=== PATIENT | female | born 2005 | race Caucasian/White ===

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

== ENCOUNTER 2023-02-03 17:37 | Emergency (ER) | payer BC, MEDICAID, SELFPAY ==
[2023-02-03 17:47] VITALS: BP 122/80; PULSE 89; RESP 15; TEMP 36.7; O2SAT 100
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
[2023-02-03 19:49] VITALS: BP 101/74; PULSE 77; RESP 18; O2SAT 94
[2023-02-03 19:54] LABS: Add Urine Microscopic? NO; Charge for UA Resulting for Rev
[2023-02-03 19:55] LABS: Basophils % 0.6 %; Eosinophils # 0.2 10^3/uL (0.0-0.8); Eosinophils % 2.6 %; Lymphocytes # 1.9 10^3/uL (1.5-6.5); Lymphocytes % 27.6 %; Mean Corpuscular HGB Conc 30.2 g/dL (30-55); Mean Corpuscular Hemoglobin 24.7 pg (27-33); Mean Corpuscular Volume 81.7 fl (85-98); Mean Platelet Volume 10.3 fL (7.4-10.4); Monocytes # 0.4 10^3/uL (0.2-0.9); Neutrophils # 4.42 10^3/uL (1.8-8.0); Neutrophils % 62.8 %; Nucleated Red Blood Cells % 0 %; Platelet Count 290 10^3/cmm (157-399); Red Blood Count 5.14 10^6/uL (3.85-5.65); Red Cell Distribution Width 15.4 % (12.1-15.1); White Blood Count 7.03 10^3/uL (4.5-13.0)
[2023-02-03 19:56] LABS: Bilirubin Urine Neg (Negative); Blood Urine Neg (Negative); Glucose Urine UA Norm (Normal); Ketones Urine Negative (Negative); Leukocyte Esterase Urine Negative (Negative); Nitrate Urine Negative (Negative); Protein Urine Neg (Negative); Specific Gravity, Urine 1.005 (1.005-1.030); Urine Appearance Clear (CLEAR); Urine Color Colorless (Yellow); Urobilinogen Urine Norm (Negative); pH Urine 6 (5-7)
[2023-02-03 20:24] LABS: Alanine Aminotransferase 17 U/L (0-33); Alkaline Phosphatase 78 U/L (35-105); Anion Gap 13.9 (5-19); Aspartate Amino Transferase 20 U/L (0-32); Blood Urea Nitrogen 7 mg/dL (6-20); Calcium 9.1 mg/dL (8.5-10.5); Carbon Dioxide 25 mmol/L (22-29); Chloride 103 mmol/L (98-107); Globulin 2.9 g/dL (1.3-4.6); Glomerular Filtration Rate 128.8 mL/min (90-130); Glucose 90 mg/dL (65-115); Osmolality Calculated 284 mOsm/kg (285-295); Potassium 3.9 mmol/L (3.5-5.1); Sodium 138 mmol/L (136-145); Total Bilirubin 0.3 mg/dL (0.15-1.2); Total Protein 7.9 g/dL (6.6-8.7)
[2023-02-03 21:25] VITALS: BP 103/79; PULSE 80; RESP 16; O2SAT 95
[2023-02-05 16:14] LABS: Chlamydia Trachomatis RNA TMA NOT DETECTED (NOT DETECTED); Neisseria Gonorrhoeae RNA, TMA NOT DETECTED (NOT DETECTED)
== END 2023-02-03 21:32 | disposition home or self-care (01) ==
PROVIDERS: Emergency Provider Nurse Practitioner Family; PCP Family Medicine
DX: Z04.1 Encounter for examination and observation following transport accident (principal); R10.32 Left lower quadrant pain; S39.011A Strain of muscle, fascia and tendon of abdomen, initial encounter; V89.2XXA Person injured in unspecified motor-vehicle accident, traffic, initial encounter
CPT/HCPCS: 36415; 80053; 81003; 84702; 85025; 86850; 86900; 87491; 87591; 99283

== ENCOUNTER 2023-07-23 20:44 | Outpatient (CLI) | payer BC, MEDICAID, SELFPAY ==
[2023-07-23 21:06] VITALS: BP 106/62; PULSE 93
[2023-07-23 21:20] VITALS: BMI 19.5
[2023-07-23 21:22] VITALS: BP 102/62; PULSE 93
[2023-07-23 21:37] VITALS: BP 114/73; PULSE 89
[2023-07-23 21:41] LABS: Bacteria Urine 1+ /hpf; Bilirubin Urine 1+ (Negative); Blood Urine Neg (Negative); Glucose Urine UA Norm (Normal); Ketones Urine 1+ (Negative); Leukocyte Esterase Urine Trace (Negative); Mucus Urine 3+ /hpf; Nitrate Urine Negative (Negative); Protein Urine 1+ (Negative); RBC Urine 0-4 /hpf (0-2); Squamous Epithelial Cell Urine 15-25 /hpf (0-5); Urine Appearance Hazy (CLEAR); Urine Color Yellow (Yellow); Urobilinogen Urine 4 mg/dL (Negative); WBC Urine 0-4 /hpf (0-5); pH Urine 5 (5-7)
[2023-07-23 21:52] VITALS: BP 112/72; PULSE 99
[2023-07-23 22:01] VITALS: BP 112/72; PULSE 99
== END 2023-07-23 22:10 | disposition home or self-care (01) ==
LOC: OPOB 20:45 → OBGYN 20:46
PROVIDERS: PCP Family Medicine; Visit Provider Family Medicine
DX: O26.899 Other specified pregnancy related conditions, unspecified trimester (principal); Z3A.00 Weeks of gestation of pregnancy not specified; R19.7 Diarrhea, unspecified; R10.9 Unspecified abdominal pain; R53.1 Weakness
CPT/HCPCS: 81001; 99211

== ENCOUNTER 2023-08-04 08:37 | Oncology outpatient (recurring) (ONCR) | payer BC, MEDICAID, SELFPAY ==
[2023-08-04 16:17] VITALS: BP 114/64; PULSE 100; RESP 18; TEMP 37.2; O2SAT 98
[2023-08-04 16:19] VITALS: BP 114/68; PULSE 101; RESP 18; TEMP 37.2; O2SAT 98
[2023-08-04 16:27] VITALS: BP 114/68; PULSE 101; RESP 18; TEMP 37.2; O2SAT 98
== END 2023-08-14 23:59 | disposition home or self-care (01) ==
LOC: ONCMED 08:38
PROVIDERS: PCP Family Medicine; Visit Provider Family Medicine
DX: O26.893 Other specified pregnancy related conditions, third trimester (principal); Z67.91 Unspecified blood type, Rh negative; Z23 Encounter for immunization
CPT/HCPCS: 36415; 86850; 86900; 90384

== ENCOUNTER 2023-08-18 18:50 | Outpatient (CLI) | payer BC, MEDICAID, SELFPAY ==
[2023-08-18 19:07] VITALS: BP 116/73; PULSE 104
[2023-08-18 19:14] VITALS: BMI 20.9
[2023-08-18 19:22] VITALS: BP 116/70; PULSE 101
[2023-08-18 19:25] VITALS: TEMP 36.6
[2023-08-18 19:28] LABS: Glucose Point of Care 218 mg/dL (70-110)
[2023-08-18 19:41] LABS: Bilirubin Urine Neg (Negative); Blood Urine Neg (Negative); Glucose Urine UA 4+ (Normal); Ketones Urine Negative (Negative); Leukocyte Esterase Urine Negative (Negative); Nitrate Urine Negative (Negative); Protein Urine Neg (Negative); Urine Appearance Clear (CLEAR); Urine Color Yellow (Yellow); Urobilinogen Urine Norm (Negative); pH Urine 6 (5-7)
[2023-08-18 19:52] VITALS: BP 114/71; PULSE 89
[2023-08-18 20:00] LABS: RBC Urine 0-4 /hpf (0-2); Squamous Epithelial Cell Urine 0-4 /hpf (0-5)
[2023-08-18 20:01] LABS: Add Urine Culture? No
[2023-08-18 20:09] VITALS: BP 114/79; PULSE 89
== END 2023-08-18 20:19 | disposition home or self-care (01) ==
LOC: OPOB 18:55 → OBGYN 18:55
PROVIDERS: PCP Family Medicine; Visit Provider Family Medicine
DX: O26.899 Other specified pregnancy related conditions, unspecified trimester (principal); Z3A.00 Weeks of gestation of pregnancy not specified
CPT/HCPCS: 36416; 59025; 81001; 82962; 99211

== ENCOUNTER 2023-08-20 12:06 | Outpatient (CLI) | payer BC, MEDICAID, SELFPAY ==
[2023-08-20 12:05] VITALS: BMI 20.8
[2023-08-20 12:27] VITALS: BP 118/72; PULSE 103
[2023-08-20 12:47] VITALS: BP 115/72; PULSE 115
[2023-08-20 13:29] LABS: Nitrazine Paper, PH Negative
== END 2023-08-20 13:00 | disposition home or self-care (01) ==
LOC: OPOB 12:06 → OBGYN 12:07
PROVIDERS: PCP Family Medicine; Visit Provider Family Medicine
DX: O26.899 Other specified pregnancy related conditions, unspecified trimester (principal); Z3A.00 Weeks of gestation of pregnancy not specified; N89.8 Other specified noninflammatory disorders of vagina
CPT/HCPCS: 59025; 83986; 99211

== ENCOUNTER 2023-08-23 12:11 | Outpatient (CLI) | payer BC, MEDICAID, SELFPAY ==
[2023-08-23 12:25] VITALS: BP 108/67; PULSE 88
[2023-08-23 12:27] VITALS: BMI 20.6
[2023-08-23 12:46] VITALS: BP 112/63; PULSE 83
[2023-08-23 13:05] VITALS: BP 113/73; PULSE 77
[2023-08-23 13:25] VITALS: BP 113/73; PULSE 77
== END 2023-08-23 13:25 | disposition home or self-care (01) ==
LOC: OPOB 12:19 → OBGYN 12:20
PROVIDERS: PCP Family Medicine; Visit Provider Family Medicine
DX: O24.419 Gestational diabetes mellitus in pregnancy, unspecified control (principal); O99.019 Anemia complicating pregnancy, unspecified trimester; Z3A.00 Weeks of gestation of pregnancy not specified
CPT/HCPCS: 59025; 99211

== ENCOUNTER 2023-08-29 12:16 | Outpatient (CLI) | payer BC, MEDICAID, SELFPAY ==
[2023-08-29 12:25] VITALS: BP 109/66; PULSE 71; TEMP 35.7
[2023-08-29 12:26] VITALS: RESP 15
--- NOTE | 2023-08-29 12:26 | US_ITS ---
WS: [id number] BIOPHYSICAL PROFILE AMNIOTIC FLUID HISTORY: gestational diabetes and anemia COMPARISON: 05/31/2023 position: Vertex. Cardiac activity: 145 bpm. Cervix: closed. Placenta: Anterior, no previa or abruption. Placenta grade: 1 Parameters are as follows: Breathin Movement: 2 Tone: 2 Fluid volume: 2 Amniotic Fluid Index: 21.0 IMPRESSION: 1. Biophysical profile score: 8/8. 2. Normal amniotic fluid.
[2023-08-29 12:30] VITALS: BMI 19.7
[2023-08-29 12:45] VITALS: BP 108/65; PULSE 75
[2023-08-29 13:20] VITALS: BP 108/65; PULSE 75
== END 2023-08-29 13:20 | disposition home or self-care (01) ==
LOC: OPOB 12:21 → OBGYN 12:22
PROVIDERS: PCP Family Medicine; Visit Provider Family Medicine
DX: O24.419 Gestational diabetes mellitus in pregnancy, unspecified control (principal); Z3A.00 Weeks of gestation of pregnancy not specified
CPT/HCPCS: 59025; 76819; 99211

== ENCOUNTER 2023-09-10 13:20 | Outpatient (CLI) | payer BC, MEDICAID, SELFPAY ==
[2023-09-10 13:32] VITALS: BP 110/62; PULSE 81
--- NOTE | 2023-09-10 13:43 | USR_ITS ---
PROCEDURE INFORMATION: Exam: US Biophysical Profile Without Non-Stress Test Exam date and time: 09/10/2023 3:16 PM Age: 18 years old Clinical indication: Condition or disease; Other: Gdm; TECHNIQUE: Imaging protocol: US biophysical profile without non-stress testing. COMPARISON: US OB BPP wo NST [id number] 08/29/2023 12:59 PM FINDINGS: heart rate: 125 bpm BIOPHYSICAL PROFILE: breathing (BPP): 2 out of 2. gross body movement (BPP): 2 out of 2. tone (BPP): 2 out of 2. Amniotic fluid (BPP): 2 out of 2. MATERNAL ANATOMY: Cervix: Cervical length measures 3 cm. US/US OB BPP wo NST [id number] IMPRESSION: Viable IUP. Normal biophysical profile.
[2023-09-10 13:47] VITALS: BP 115/70; PULSE 111
[2023-09-10 14:02] VITALS: BP 113/73; PULSE 86
== END 2023-09-10 15:40 | disposition home or self-care (01) ==
LOC: OPOB 13:23 → OBGYN 13:26
PROVIDERS: PCP Family Medicine; Visit Provider Family Medicine
DX: O24.419 Gestational diabetes mellitus in pregnancy, unspecified control (principal); Z3A.00 Weeks of gestation of pregnancy not specified
CPT/HCPCS: 59025; 76819; 99211

== ENCOUNTER 2023-09-28 07:22 | Inpatient (IN) | payer BC, MEDICAID, SELFPAY ==
[2023-09-28] VITALS (80 sets, daily range): BP systolic 68–137; BP diastolic 35–89; PULSE 66–157; RESP 18; TEMP 36.2–36.9; O2SAT 92–100; BMI 22.1
[2023-09-28 03:18] LABS: Basophils # 0.1 10^3/uL (0.0-0.1); Basophils % 0.5 %; Eosinophils # 0.1 10^3/uL (0.0-0.8); Eosinophils % 0.9 %; Hematocrit 28.1 % (36-47); Lymphocytes # 2.2 10^3/uL (1.5-6.5); Mean Corpuscular HGB Conc 28.5 g/dL (30-55); Mean Corpuscular Hemoglobin 21.2 pg (27-33); Mean Corpuscular Volume 74.5 fl (85-98); Mean Platelet Volume 11.1 fL (7.4-10.4); Monocytes # 0.6 10^3/uL (0.2-0.9); Monocytes % 5.5 %; Neutrophils # 8.59 10^3/uL (1.8-8.0); Neutrophils % 73.6 %; Nucleated Red Blood Cells % 0 %; Platelet Count 230 10^3/cmm (157-399); Red Blood Count 3.77 10^6/uL (3.85-5.65); Red Cell Distribution Width 16.1 % (12.1-15.1); White Blood Count 11.68 10^3/uL (4.5-13.0)
[2023-09-28 04:36] LABS: Glucose Point of Care 96 mg/dL (70-110)
--- NOTE | 2023-09-28 07:19 | PM.OBGYHP ---
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 Patient was 2 cm dilated on September 25 and when she presented with contractions she had dilated to a 3 continued to slowly dilate to a 5 cm. Dilation has slowed down this morning but she continues to contract 3 to 5 minutes. Patient's care was complicated by gestational diabetes that did require insulin and diet control. The patient had labile blood sugars and her last A1c was 6.8%. Patient is a negative and rubella nonimmune, otherwise labs were unremarkable. Present Details : 3 Para: 2 Review of Systems General: Reports: 10 or more systems reviewed and unremarkable except in HPI and below Card: Denies: chest pain Resp: Denies: dyspnea : Denies: difficulty voiding Musc: Denies: neck pain or back pain Skin/Breast: Denies: rash Medications/Allergies Home Medications Medication Instructions Recorded Confirmed Last Taken Type ferrous sulfate 325 mg (65 mg 325 mg PO BID #60 tabs 05/11/21 09/28/23 09/24/23 10:00 Rx iron) tablet,delayed release insulin aspart U-100 100 unit/mL 2 unit SUBCUT 3XD 08/18/23 09/28/23 2 Days Ago History (3 mL) subcutaneous pen ~09/26/23 insulin glargine 100 unit/mL (3 6 unit SUBCUT 1XD 08/18/23 09/28/23 09/14/23 22:00 History mL) subcutaneous pen Allergies Allergy/AdvReac Type Severity Reaction Status Date / Time No Known Allergies Allergy Verified 09/28/23 01:29 PFSH DIGITAL MEDIA MANAGER PFSH: Social History (Updated 12/23/19 @ 16:45 by Jael Christianson LPN) Smoking and tobacco/nicotine status: never used tobacco/nicotine Alcohol intake: never Substance/Drug Use: never Vitals/I&O/Wt Last Vital Signs Temp 97.2 F L 09/28/23 06:04 Pulse 74 09/28/23 07:05 BP 121/71 09/28/23 07:05 O2 Del Method Room Air 09/28/23 06:03 Weight last 48 hrs Weight 62.142 kg Physical Exam Const: COMMON NORMALS: no acute distress, patient oriented x3, alert and well nourished HENMT: COMMON NORMALS: normocephalic Neck/C-Spine: COMMON NORMALS: no lymphadenopathy and supple Resp: COMMON NORMALS: normal respiratory effort, No retractions and No use of accessory muscles GI: OTHER: Gravid Extremity: COMMON NORMALS: normal to inspection and no clubbing, cyanosis or edema Neuro: COMMON NORMALS: moves all extremities, no focal motor deficits and no sensory deficits noted Psych: COMMON NORMALS: mental status grossly normal Skin: COMMON NORMALS: no rashes or lesions noted Data 09/28/23 03:00 Results Labs OB ([facility]): Obstetrics US/Biophysical Profile 09/10/23 Blood Type A Negative 09/28/23 Antibody Screen Positive 09/28/23 Hct 28.1 % (36-47) L 09/28/23 Hgb 8.00 g/dL (12.4-14.8) L 09/28/23 Rho(D) Type Rh negative 09/28/23 Plt Count 230 10^3/cmm (157-399) 09/28/23 C.trachomatis RNA (TMA) Not detected (NOT DETECTED) 02/03/23 N.gonorrhoeae RNA (TMA) Not detected (NOT DETECTED) 02/03/23 Chlamydia/GC Comment See note 02/03/23 Ser , Semi-Qnt 1.00 mIU/mL 02/03/23 A&P Assessment and plan (1) Gestational diabetes mellitus (GDM) affecting : Patient has had labile blood sugars. Her last A1c was 6.8%. Continue with glucose checks every 4 hours. (2) Term : Patient did progress to almost 6 cm but progression has slowed. Will augment labor with AROM (3) Anemia affecting : Qualifiers: Trimester: third trimester Qualified Code(s): O99.013 - Anemia complicating , third trimester Attestations Medical Necessity Statement*: Patient was admitted for labor and anticipate at least 1 midnight stay. Coding Level of Care Code Acute Code for Chg Fwd Diagnoses Gestational diabetes mellitus (GDM) affecting O24.419 Term Z34.90 Anemia affecting in third trimester O99.013 Trimester: third trimester
[2023-09-28] MEDS: lactated ringers 1,000 ML 999 ML IV ×2 (07:20→08:29)
[2023-09-28] MEDS: ROPivacaine syringe 100 MG/50 ML SYRINGE 12 MG EPIDURAL ×3 (08:15→14:48)
--- NOTE | 2023-09-28 08:23 | P.ANESASSM_ITS ---
Pre-Anesthetic Assessment Height/Weight: Height 1.68 m Weight 62.142 kg Temp Pulse BP Pulse Ox O2 Del Method 97.2 F L 109 H 109/64 98 Room Air 09/28/23 06:04 09/28/23 08:19 09/28/23 08:19 09/28/23 08:19 09/28/23 06:03 Social No alcohol and No tobacco Exam alert, oriented x 3, clear to auscultation bilaterally and regular rate & rhythm Airway Submandibular: within normal limits Cervical ROM: within normal limits Mallampati: Class I Pulmonary None reported CV/HEM None reported Hepatic None reported Metabolic Diabetes Mellitus gestational Musc/skel None reported Anesthetic Plan ASA status: 2E Anesthesia: Regional (specify below) Other: epidural for labor Medications/Allergies Home Medications Medication Instructions Recorded Confirmed Last Taken Type ferrous sulfate 325 mg (65 mg 325 mg PO BID #60 tabs 05/11/21 09/28/23 09/24/23 10:00 Rx iron) tablet,delayed release insulin aspart U-100 100 unit/mL 2 unit SUBCUT 3XD 08/18/23 09/28/23 2 Days Ago History (3 mL) subcutaneous pen ~09/26/23 insulin glargine 100 unit/mL (3 6 unit SUBCUT 1XD 08/18/23 09/28/23 09/14/23 22:00 History mL) subcutaneous pen Allergies Allergy/AdvReac Type Severity Reaction Status Date / Time No Known Allergies Allergy Verified 09/28/23 01:29 Current Medications Generic Name Dose Route Start Last Admin Trade Name Freq PRN Reason Stop Dose Admin Lactated Ringer's 1,000 mls @ 999 mls/hr 09/28/23 07:13 09/28/23 07:20 Lactated Ringers IV 999 mls/hr .Q1H1M PRN Administration See label comments PFSH Anesthesia Social History (Updated 12/23/19 @ 16:45 by Jael Christianson LPN) Smoking and tobacco/nicotine status: never used tobacco/nicotine Alcohol intake: never Substance/Drug Use: never Female Reproductive History : 3 Data Anesthesia 09/28/23 03:00 Short CBC 09/28/23 Range/Units 03:00 WBC 11.68 (4.5-13.0) 10^3/uL Hgb 8.00 L (12.4-14.8) g/dL Hct 28.1 L (36-47) % MCV 74.5 L (85-98) fl Plt Count 230 (157-399) 10^3/cmm Neut % (Auto) 73.6 % Neut # (Auto) 8.59 H (1.8-8.0) 10^3/uL Blood Bank 09/28/23 03:00 Blood Type A Negative Rho(D) Type Rh negative Antibody Screen Positive Cardiac Studies: 2 No Data to Display
--- NOTE | 2023-09-28 08:26 | P.ANES_ITS ---
Anesthesia Procedures Procedure/Date: 09/28/23 Epidural: Time Out Performed: Yes Consents Signed: Procedure Consent Consent: from patient, risks and benefits reviewed and patient agrees to proceed Lumbar Level: L3-L4 Epidural position: sitting Epidural procedure: sterile prep of area, 1% lidocaine to numb the area, 18 g needle, neg for pares thesia, test dose given, 1.5% xylocaine 1:200k epi, no systemic response, sterile dressing applied and 0.2% Ropiavacaine @ mls/hr (12 cc per hour with 5 ml bolus q 15)
[2023-09-28] MEDS: ePHEDrine 50 mg/mL Inj 25 MG IM (08:30)
--- NOTE | 2023-09-28 09:20 | PC.NURSE ---
Pt has implantable continuous glucose monitor. Blood glucose 125 at this time.
[2023-09-28] MEDS: oxytocin 30 UNIT/500 ML BAG IV (11:30)
[2023-09-28] MEDS: lactated ringers 1,000 ML 125 ML IV (13:09)
--- NOTE | 2023-09-28 13:18 | PM.MISC ---
Miscellaneous Note Purpose of Documentation: Epidural bolus Note: Patient c/o midline lower abdomen cramping discomfort. Epidural appears in good place, right leg numb, bolused 100mcg fentanyl and 5mls of 2% lido PF.
--- NOTE | 2023-09-28 13:28 | PC.NURSE ---
Blood glucose 86 per pt implantable glucose monitor
--- NOTE | 2023-09-28 14:36 | PM.MISC ---
Miscellaneous Note Purpose of Documentation: Epidural bolus Note: Epidural bolused with 100mcg fent and 3mls of 0.5% bup
[2023-09-28] MEDS: benzocaine-menthol 78 gm Canister 1 SPRAY TOPICAL (18:39)
[2023-09-28] MEDS: docusate sodium 100 mg Capsule PO (18:39)
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
[2023-09-28] MEDS: ibuprofen 800 mg tablet PO (21:17)
[2023-09-28] MEDS: acetaminophen 325 mg Tablet 650 MG PO (23:10)
[2023-09-29 01:00] VITALS: BP 121/79; PULSE 73; RESP 18; TEMP 36.7; O2SAT 96
[2023-09-29 03:15] LABS: Hematocrit 22.3 % (36-47); Mean Corpuscular HGB Conc 28.7 g/dL (30-55); Mean Corpuscular Hemoglobin 21.8 pg (27-33); Mean Corpuscular Volume 75.9 fl (85-98); Mean Platelet Volume 10.5 fL (7.4-10.4); Platelet Count 151 10^3/cmm (157-399); Red Blood Count 2.94 10^6/uL (3.85-5.65)
[2023-09-29 05:19] VITALS: BP 129/85; PULSE 74; RESP 18; TEMP 36.4; O2SAT 97
[2023-09-29] MEDS: acetaminophen 325 mg Tablet 650 MG PO (06:02)
--- NOTE | 2023-09-29 06:35 | P.PCNOB_ITS ---
Delivery Note: Date of delivery: September 28, 2023 Pre-delivery diagnoses: Term , uncontrolled A2 gestational diabetic Post-delivery diagnoses: Same, viable female Procedure: Spontaneous vaginal delivery Delivering Physician: Dr. Shahram Estes Estimated blood loss (mL): 300 Pre-Delivery Course: Patient presented with contractions and made slow progress to 5 to 6 cm. Patient continued to have contractions but progression slowed so augmentation was applied. Patient's membranes were ruptured and small amount of Pitocin was given. Patient then progressed to completion as expected. Delivery: Once patient was completely dilated the patient was placed in the normal lithotomy position. Patient started pushing with contractions and delivered a v iable female without complications. The infant was placed on mother's abdomen and after delay the cord was clamped and cut. Consent was then delivered without complication. Review of the perineum after delivery showed a small second-degree perineal tear and a small first-degree right labial tear. Both were repaired with 3-0 Vicryl. The end of the procedure patient's bleeding was appropriate and uterus was firm. Post-Delivery Status: Stable History History History 3 Term 3 0 Miscarriages/Ectopic 0 Living Children 3 A&P Assessment and plan (1) Normal spontaneous vaginal delivery: Proceed with routine care. Coding Level of Care Code Acute Code for Chg Fwd Diagnoses Normal spontaneous vaginal delivery O80
--- NOTE | 2023-09-29 06:42 | PM.OBGYPN ---
[employer] Subjective Subjective: Interval history: This is a 18-year-old G3, P3 that is status post day 1 from spontaneous vaginal delivery. Patient has not had any further blood sugar issues. Patient's lochia has been appropriate. The patient has ambulated and urinated without difficulty. Patient denies any dizziness or lightheadedness. Labor: Station: 0 Amniotic Membrane Status: Leaking Monitor Mode: External Contraction Pattern: Regular Post /CS: Patient comments OB post-: no complaints, pain well controlled and tolerating diet [place] baby status: doing well and nursing well [place] feeding status: breast and bottle feeding Vitals/I&O/Wt Last Vital Signs Temp 97.5 F L 09/29/23 05:19 Pulse 74 09/29/23 05:19 Resp 18 09/29/23 05:19 BP 129/85 09/29/23 05:19 Pulse Ox 97 09/29/23 05:19 O2 Del Method Room Air 09/29/23 05:19 09/28/23 09/28/23 09/29/23 14:59 22:59 06:59 Intake Total 2100.00 / 2100.00 1040.000 / 3140.000 Output Total 1400 / 1400 400 / 1800 Balance 700.00 / 700.00 640.000 / 1340.000 Weight last 48 hrs Weight 62.142 kg Physical Exam Const: COMMON NORMALS: no acute distress, patient oriented x3, alert and well nourished HENMT: COMMON NORMALS: normocephalic HEAD & SCALP: normocephalic Neck/C-Spine: COMMON NORMALS: no lymphadenopathy and supple Resp: COMMON NORMALS: normal respiratory effort, No retractions and No use of accessory muscles GI: OTHER: Uterus firm at the umbilicus Extremity: COMMON NORMALS: normal to inspection and no clubbing, cyanosis or edema Neuro: COMMON NORMALS: patient oriented x3, moves all extremities, no focal motor deficits and no sensory deficits noted SENSORIUM/ORIENTATION: Yes alert Psych: COMMON NORMALS: mental status grossly normal Skin: COMMON NORMALS: no rashes or lesions noted GENERAL SKIN EXAM: no rashes or lesions noted Urinary Catheter Management: Angel: Cath Placed During This Visit: yes, but has since been removed by the nurse Reason for Continuing Indwelling Catheter: Decision to DC Catheter Urinary Catheter Date of Insertion: 09/28/23 Urinary Catheter Time of Insertion: 09:00 Date Urinary Catheter Removed: 09/28/23 Time Urinary Catheter Discontinued: 15:10 Data 09/29/23 03:10 A&P Assessment and plan (1) Normal spontaneous vaginal delivery: Continue with routine care. (2) Gestational diabetes mellitus (GDM) affecting : Continue to monitor sugar to ensure there is no further issues. (3) Anemia: Qualifiers: Anemia type: unspecified type Qualified Code(s): D64.9 - Anemia, unspecified Attestations Medical Necessity Statement*: Anticipate at least 2 midnight staty. Likely discharge tomorrow. Coding Level of Care Code Acute Code for Chg Fwd Diagnoses Normal spontaneous vaginal delivery O80 Gestational diabetes mellitus (GDM) affecting O24.419 Anemia, unspecified type D64.9 Anemia type: unspecified type
--- NOTE | 2023-09-29 06:42 | ANE.PACU2 ---
Inpatient post-anesthesia follow up: Airway intact: Yes Vital signs: Temperature 97.5 F Pulse Rate 74 Respiratory Rate 18 Blood Pressure 129/85 Pulse Oximetry 97 Oxygen Delivery Me thod Room Air Oxygen Flow Rate Fraction of Inspir ed Oxygen Hydration adequate: Yes Nausea and vomiting: No Pain level: 2 Mental status: Baseline Epidural Start/End: Epidural Start Date: 09/28/23 Epidural Start Time: 08:15 Epidural End Date: 09/28/23 Epidural End Time: 17:22
[2023-09-29] MEDS: PRENATAL VIT NO.130/IRON/FOLIC 1 EACH TABLET PO (08:47)
[2023-09-29] MEDS: ferrous sulfate EC 325 mg Tablet PO (08:47)
[2023-09-29] MEDS: docusate sodium 100 mg Capsule PO ×2 (08:47→18:08)
[2023-09-29] MEDS: ibuprofen 800 mg tablet PO ×3 (08:47→20:36)
[2023-09-29 10:00] VITALS: BP 108/74; PULSE 93; RESP 17; TEMP 36.8; O2SAT 97
[2023-09-29 15:49] VITALS: BP 118/76; PULSE 85; RESP 16; O2SAT 98
[2023-09-29 19:00] VITALS: BP 115/75; PULSE 75; RESP 16; TEMP 36.7; O2SAT 98
[2023-09-30 04:00] VITALS: BP 113/68; PULSE 76; RESP 16; TEMP 36.7; O2SAT 98
--- NOTE | 2023-09-30 07:45 | PM.OBGYDC ---
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 Shahram Estes Diagnoses at Discharge Discharge Diagnosis (1) Normal spontaneous vaginal delivery: Status: Resolved (2) Gestational diabetes mellitus (GDM) affecting : Status: Acute (3) Anemia: Status: Acute Qualifiers: Anemia type: unspecified type Qualified Code(s): D64.9 - Anemia, unspecified Reason for Visit Reason for Visit: ctx Hospital Course Hospital Course This is a 18-year-old G3, P3 that presented with contractions. She proceeded to deliver a viable infant female via spontaneous vaginal delivery without complication. The patient's care was unremarkable except for anemia. Patient's vital signs have remained stable and she has been asymptomatic with the anemia. Feeding is going well. Information Peripartum Data: Delivery Method: Vaginal Laceration description: Perineal - 2nd Degree complications: none Physical Exam Const: COMMON NORMALS: no acute distress, patient oriented x3, alert and well nourished HENMT: COMMON NORMALS: normocephalic HEAD & SCALP: normocephalic Neck/C-Spine: COMMON NORMALS: no lymphadenopathy and supple Resp: COMMON NORMALS: normal respiratory effort, No retractions and No use of accessory muscles GI: OTHER: Uterus firm at the umbilicus Extremity: COMMON NORMALS: normal to inspection and no clubbing, cyanosis or edema Neuro: COMMON NORMALS: patient oriented x3, moves all extremities, no focal motor deficits and no sensory deficits noted SENSORIUM/ORIENTATION: Yes alert Psych: COMMON NORMALS: mental status grossly normal Skin: COMMON NORMALS: no rashes or lesions noted GENERAL SKIN EXAM: no rashes or lesions noted Urinary Catheter Management: Angel: Cath Placed During This Visit: yes, but has since been removed by the nurse Reason for Continuing Indwelling Catheter: Decision to DC Catheter Urinary Catheter Date of Insertion: 09/28/23 Urinary Catheter Time of Insertion: 09:00 Date Urinary Catheter Removed: 09/28/23 Time Urinary Catheter Discontinued: 15:10 History History History 3 Term 3 0 Miscarriages/Ectopic 0 Living Children 3 Discharge Data Studies Completed and Pending Laboratory Results WBC 12.10 10^3/uL (4.5-13.0) 09/29/23 03:10 RBC 2.94 10^6/uL (3.85-5.65) L 09/29/23 03:10 Hgb 6.40 g/dL (12.4-14.8) L* 09/29/23 03:10 Hct 22.3 % (36-47) L 09/29/23 03:10 MCV 75.9 fl (85-98) L 09/29/23 03:10 MCH 21.8 pg (27-33) L 09/29/23 03:10 MCHC 28.7 g/dL (30-55) L 09/29/23 03:10 RDW 16.0 % (12.1-15.1) H 09/29/23 03:10 Plt Count 151 10^3/cmm (157-399) L D 09/29/23 03:10 MPV 10.5 fL (7.4-10.4) H 09/29/23 03:10 Neut % (Auto) 73.6 % 09/28/23 03:00 Lymph % (Auto) 19.0 % 09/28/23 03:00 [place] % (Auto) 5.5 % 09/28/23 03:00 Eos % (Auto) 0.9 % 09/28/23 03:00 Baso % (Auto) 0.5 % 09/28/23 03:00 Neut # (Auto) 8.59 10^3/uL (1.8-8.0) H 09/28/23 03:00 Lymph # (Auto) 2.2 10^3/uL (1.5-6.5) 09/28/23 03:00 [place] # (Auto) 0.6 10^3/uL (0.2-0.9) 09/28/23 03:00 Eos # (Auto) 0.1 10^3/uL (0.0-0.8) 09/28/23 03:00 Baso # (Auto) 0.1 10^3/uL (0.0-0.1) 09/28/23 03:00 Nucleated RBC % (auto) 0 % 09/28/23 03:00 Nucleated RBCs # 0.0 /100WBC 09/28/23 03:00 POC Glucose 96 mg/dL (70-110) 09/28/23 04:28 Blood Type A Negative 09/28/23 03:00 Rho(D) Type Rh negative 09/28/23 03:00 Antibody Screen Positive 09/28/23 03:00 Antibody Identification Anti-D 09/28/23 03:00 Vitals Last Vital Signs Temp 98.1 F 09/30/23 04:00 Pulse 76 09/30/23 04:00 Resp 16 09/30/23 04:00 BP 113/68 09/30/23 04:00 Pulse Ox 98 09/30/23 04:00 O2 Del Method Room Air 09/30/23 04:00 Results Labs OB ([facility]): Obstetrics US/Biophysical Profile 09/10/23 Blood Type A Negative 09/28/23 Antibody Screen Positive 09/28/23 Hct 22.3 % (36-47) L 09/29/23 Hgb 6.40 g/dL (12.4-14.8) L* 09/29/23 Rho(D) Type Rh negative 09/28/23 Plt Count 151 10^3/cmm (157-399) L 09/29/23 C.trachomatis RNA (TMA) Not detected (NOT DETECTED) 02/03/23 N.gonorrhoeae RNA (TMA) Not detected (NOT DETECTED) 02/03/23 Chlamydia/GC Comment See note 02/03/23 Ser , Semi-Qnt 1.00 mIU/mL 02/03/23 Discharge Plan Discharge Patient Disposition: Home Condition: Stable Prescriptions: Continued ferrous sulfate 325 mg (65 mg iron) Tablet,Delayed Release (Dr/Ec) 325 mg PO BID Qty: 60 0RF Discontinued insulin aspart U-100 100 unit/mL (3 mL) Insulin Pen 2 unit SUBCUT 3XD insulin glargine 100 unit/mL (3 mL) Insulin Pen 6 unit SUBCUT 1XD Discharge Orders: Discharge Order (Routine); Ordered 09/30/23 Ordered By: Fran Estes Referrals: Fran Estes MD [Physician] - 6 Weeks Discharge Diet: Usual diet Discharge Activity: Limit activity as instructed Patient Instructions: Opioid Safety Discharge Attestations CELL COVERER Time Spent in Discharge Care*: less than 30 min Coding Level of Care Code Acute Code for Chg Fwd Diagnoses Normal spontaneous vaginal delivery O80 Gestational diabetes mellitus (GDM) affecting O24.419 Anemia, unspecified type D64.9 Anemia type: unspecified type
[2023-09-30] MEDS: ibuprofen 800 mg tablet PO (08:44)
[2023-09-30] MEDS: docusate sodium 100 mg Capsule PO (08:44)
[2023-09-30] MEDS: ferrous sulfate EC 325 mg Tablet PO (08:44)
[2023-09-30] MEDS: PRENATAL VIT NO.130/IRON/FOLIC 1 EACH TABLET PO (08:44)
[2023-09-30 08:54] VITALS: BP 127/85; PULSE 92; RESP 15; TEMP 36.5; O2SAT 98
[2023-09-30 09:10] VITALS: BP 127/85; PULSE 92; RESP 15; TEMP 36.5; O2SAT 98
== END 2023-09-30 09:10 | disposition home or self-care (01) | DRG 807 ==
PROVIDERS: Admitting Provider Family Medicine; PCP Family Medicine; Visit Provider Family Medicine
DX: O24.424 Gestational diabetes mellitus in childbirth, insulin controlled (principal); Z37.0 Single live birth; O99.02 Anemia complicating childbirth; D64.9 Anemia, unspecified; O70.1 Second degree perineal laceration during delivery; Z3A.00 Weeks of gestation of pregnancy not specified
CPT/HCPCS: 36415; 36416; 51702; 59025; 59409; 80503; 82962; 85025; 85027; 86850; 86870; 86900; 96372; 99211; J2590; J2795; J3010; J3490; J7120

== ENCOUNTER 2024-11-17 15:40 | Emergency (ER) | payer BC, MEDICAID, SELFPAY ==
--- OUTSIDE RECORDS SUMMARY | 2024-11-17 15:47 | XMS_ITS | Data Portability ---
Author Organization COLETTE Pauly kinney [facility] Address [address] [place] [address] Assessment Encounter Date Assessment Date Assessment LastModified by Organization Details LastModified Time 08/08/2024 08/08/2024 This visit encompassed the longitudinal relationship with the patient for the care outlined in my assessment and plan Not available 08/08/2024 13:08:18 08/08/2024 08/08/2024 bs good control cont diet and exercise monitor bs as directed keep fu with opthamologist farrukh [email or web address] Not available 08/07/2024 17:45:17 Plan of Treatment Reminders Order Date Submit Date Provider Last Modified By Organization Details Last Modified Time Details Appointments None recorded. Lab HbA1c (hemoglobin A1c), blood 2024 025 [employer] 173 [facility] ([facility], [address] [place], [address], 16:05:15 lipid panel, serum 2024 025 [email or web address] 173 [facility] ([place]), [address] [place], [address], 5 16:05:15 microalbumi n/creatinin e, mass ratio, urine 2024 025 BERNY [facility] ([facility], [address] [place], [address], 5 20:10:22 CMP, serum or plasma 2024 025 [email or web address] 173 [facility] ([place]), [address] [place], [address], 5 16:05:15 CBC w/ auto diff 2024 025 [email or web address] 173 [facility] ([place]), [address] [place], [address], 5 16:05:15 urinalysis, complete 2024 025 [email or web address] ([place]), [address] [place], [address], 5 16:05:15 TSH + free T4, serum 2024 025 [email or web address] 173 [facility] ([place]), [address] [place], [address], 5 16:05:15 unlisted lab - juanita/[id number]/ insulin Ab [facility] - [facility] 2024 025 COS COB [facility] ([place]), [address] [place], [address], 5 04:15:41 Referral None recorded. Procedures None recorded. Surgeries None recorded. Imaging None recorded. Medication Orders glucose 4 gram chewable tablet 2024 025 [facility], [address] [place], [address], 5 13:13:56 Baqsimi 3 mg/actuatio n nasal spray 2024 025 [facility], [address] [place], [address], 5 13:13:56 Humalog KwikPen (U-100) Insulin 100 unit/mL subcutaneou s 2024 025 [email or web address] [facility], [address] [place], [address], 13:17:20 Lantus Solostar U-100 Insulin 100 unit/mL (3 mL) subcutaneou s pen 2024 025 [email or web address] [facility], [address] [place], [address], 13:17:20 Patient Targets Encounter Date Encounter Id Patient Goals Patient Target Last Modified By Organization Details Last Modified Time 08/08/2024 [id number] 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 Not available Not available Not available 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 Hemoglobin A1C 6.5% or less Not available Not available Not available residential goal of Glucose, 2 Hour Postprandial 140mg/dL or less Not available Not available Not available residential goal of Fasting Glucose 110mg/dL or less Not available Not available Not available Patient Instructions Encounter Date Encounter Id Patient Instructions Last Modified By Organization Details Last Modified Time 08/08/2024 [id number] During the patient's visit for diabetes, we discussed the goal of improvement and stabilization of the diabetes with treatment compliance and continued efforts at improvement of diet and lifestyle. We also discussed long-term goal of preventing complications of diabetes with regular followups and monitoring and other preventative measures such as yearly diabetic foot examination and diabetic eye examination, dental exams every 6 months. Vaccines recommended are yearly influenza, pneumococcal, Tdap, Shingrex over 50 yr old, RSV as indicated, Hep B under 60 yr old and COVID. S/S hypoglycemia and treatment with Rule of 15 discussed as applicable. Not available 08/08/2024 13:18:14 08/08/2024 [id number] During the patient's visit for diabetes, we discussed the goal of improvement and stabilization of the diabetes with treatment compliance and continued efforts at improvement of diet and lifestyle. We also discussed long-term goal of preventing complications of diabetes with regular followups and monitoring and other preventative measures such as diabetic foot examination and diabetic eye examination. [email or web address] Not available 08/07/2024 17:45:18 Reason for Referral None Reported. Results Created Date Observation Date Name Description Value Unit Range Abnormal Flag Note LastModifiedBy Organization Detail LastModifiedTime 08/09/19 25 08/09/2024 CBC WITH DIFFE RENTI AL/PL ATELE T WBC 5.5 x10e3 /uL 3.4-10 .8 normal Not Available [facility] ([facility]) [address] [place], [address], 08/09/2024 06:47:20 08/09/19 25 08/09/2024 CBC WITH DIFFE RENTI AL/PL ATELE T RBC 4.62 x10e6 /uL 3.77-5 .28 normal Not Available [facility] ([facility]) [address] [place], [address], 08/09/2024 06:47:20 08/09/19 25 08/09/2024 CBC WITH DIFFE RENTI AL/PL ATELE T hemoglobin 9.4 g/dL 11.1-1 5.9 below low normal Not Available [facility] ([facility]) [address] [place], [address], 08/09/2024 06:47:20 08/09/19 25 08/09/2024 CBC WITH DIFFE RENTI AL/PL ATELE T hematocrit 34.1 % 34.0-4 6.6 normal Not Available [facility] ([facility]) [address] [place], [address], 08/09/2024 06:47:20 08/09/19 25 08/09/2024 CBC WITH DIFFE RENTI AL/PL ATELE T MCV 74 fL 79-97 below low normal Not Available [facility] ([facility]) [address] [place], [address], 08/09/2024 06:47:20 08/09/19 25 08/09/2024 CBC WITH DIFFE RENTI AL/PL ATELE T MCH 20.3 pg 26.6-3 3.0 below low normal Not Available [facility] ([facility]) [address] [place], [address], 08/09/2024 06:47:20 08/09/19 25 08/09/2024 CBC WITH DIFFE RENTI AL/PL ATELE T MCHC 27.6 g/dL 31.5-3 5.7 below low normal Not Available [facility] ([facility]) [address] [place], [address], 08/09/2024 06:47:20 08/09/19 25 08/09/2024 CBC WITH DIFFE RENTI AL/PL ATELE T RDW 16.3 % 11.7-1 5.4 above high normal Not Available [facility] ([facility]) [address] [place], [address], 08/09/2024 06:47:20 08/09/19 25 08/09/2024 CBC WITH DIFFE RENTI AL/PL ATELE T platelets 379 x10e3 /uL 150-45 0 normal Not Available [facility] ([facility]) [address] [place], [address], 08/09/2024 06:47:20 08/09/19 25 08/09/2024 CBC WITH DIFFE RENTI AL/PL ATELE T neutrophils 64 % not estab. normal Not Available [facility] ([facility]) [address] [place], [address], 08/09/2024 06:47:20 08/09/19 25 08/09/2024 CBC WITH DIFFE RENTI AL/PL ATELE T lymphs 27 % not estab. normal Not Available [facility] ([facility]) [address] [place], [address], 08/09/2024 06:47:20 08/09/19 25 08/09/2024 CBC WITH DIFFE RENTI AL/PL ATELE T monocytes 6 % not estab. normal Not Available [facility] ([facility]) [address] [place], [address], 08/09/2024 06:47:20 08/09/19 25 08/09/2024 CBC WITH DIFFE RENTI AL/PL ATELE T eos 2 % not estab. normal Not Available [facility] ([facility]) [address] [place], [address], 08/09/2024 06:47:20 08/09/19 25 08/09/2024 CBC WITH DIFFE RENTI AL/PL ATELE T basos 1 % not estab. normal Not Available [facility] ([facility]) [address] [place], [address], 08/09/2024 06:47:20 08/09/19 25 08/09/2024 CBC WITH DIFFE RENTI AL/PL ATELE T immature cells GROUND CREWMAN Not Available [facility] ([facility]) [address] [place], [address], 08/09/2024 06:47:20 08/09/19 25 08/09/2024 CBC WITH DIFFE RENTI AL/PL ATELE T neutrophils (absolute) 3.5 x10e3 /uL 1.4-7. 0 normal Not Available [facility] ([facility]) [address] [place], [address], 08/09/2024 06:47:20 08/09/19 25 08/09/2024 CBC WITH DIFFE RENTI AL/PL ATELE T lymphs (absolute) 1.5 x10e3 /uL 0.7-3. 1 normal Not Available [facility] ([facility]) [address] [place], [address], 08/09/2024 06:47:20 08/09/19 25 08/09/2024 CBC WITH DIFFE RENTI AL/PL ATELE T monocytes(ab solute) 0.3 x10e3 /uL 0.1-0. 9 normal Not Available [facility] ([facility]) [address] [place], [address], 08/09/2024 06:47:20 08/09/19 25 08/09/2024 CBC WITH DIFFE RENTI AL/PL ATELE T eos (absolute) 0.1 x10e3 /uL 0.0-0. 4 normal Not Available [facility] ([facility]) [address] [facility], [place], [address], 08/09/2024 06:47:20 08/09/19 25 08/09/2024 CBC WITH DIFFE RENTI AL/PL ATELE T baso (absolute) 0.1 x10e3 /uL 0.0-0. 2 normal Not Available [facility] ([facility]) [address] [facility], [place], [address], 08/09/2024 06:47:20 08/09/19 25 08/09/2024 CBC WITH DIFFE RENTI AL/PL ATELE T immature granulocytes 0 % not estab. Not Available [facility] ([facility]) [address] [facility], [place], [address], 08/09/2024 06:47:20 08/09/19 25 08/09/2024 CBC WITH DIFFE RENTI AL/PL ATELE T immature grans (abs) 0.0 x10e3 /uL 0.0-0. 1 Not Available [facility] ([facility]) [address] [place], [address], 08/09/2024 06:47:20 08/09/19 25 08/09/2024 CBC WITH DIFFE RENTI AL/PL ATELE T NRBC GROUND CREWMAN Not Available [facility] ([facility]) [address] [place], [address], 08/09/2024 06:47:20 08/09/19 25 08/09/2024 CBC WITH DIFFE RENTI AL/PL ATELE T hematology comments: GROUND CREWMAN Not Available [facility] ([facility]) [address] [place], [address], 08/09/2024 06:47:20 08/09/19 25 08/09/2024 URINA LYSIS , COMPL ETE specific gravity 1.024 1.005- 1.030 normal Not Available [facility] ([facility]) [address] [place], [address], 08/09/2024 06:47:21 08/09/19 25 08/09/2024 URINA LYSIS , COMPL ETE pH 5.5 5.0-7. 5 normal Not Available [facility] ([facility]) [address] [place], [address], 08/09/2024 06:47:21 08/09/19 25 08/09/2024 URINA LYSIS , COMPL ETE urine-color YELLOW yellow Not Available [facility] ([facility]) [address] [place], [address], 08/09/2024 06:47:21 08/09/19 25 08/09/2024 URINA LYSIS , COMPL ETE appearance CLEAR clear Not Available [facility] ([facility]) [address] [place], [address], 08/09/2024 06:47:21 08/09/19 25 08/09/2024 URINA LYSIS , COMPL ETE WBC esterase NEGATI VE negati ve Not Available [facility] ([facility]) [address] [place], [address], 08/09/2024 06:47:21 08/09/19 25 08/09/2024 URINA LYSIS , COMPL ETE protein TRACE negati ve/tra ce Not Available [facility] ([facility]) [address] [place], [address], 08/09/2024 06:47:21 08/09/19 25 08/09/2024 URINA LYSIS , COMPL ETE glucose 3+ negati ve abnormal Not Available [facility] ([facility]) [address] [place], [address], 08/09/2024 06:47:21 08/09/19 25 08/09/2024 URINA LYSIS , COMPL ETE ketones TRACE negati ve abnormal Not Available [facility] ([facility]) [address] [facility], [place], [address], 08/09/2024 06:47:21 08/09/19 25 08/09/2024 URINA LYSIS , COMPL ETE occult blood NEGATI VE negati ve Not Available [facility] ([facility]) [address] [facility], [place], [address], 08/09/2024 06:47:21 08/09/19 25 08/09/2024 URINA LYSIS , COMPL ETE bilirubin NEGATI VE negati ve Not Available [facility] ([facility]) [address] [facility], [place], [address], 08/09/2024 06:47:21 08/09/19 25 08/09/2024 URINA LYSIS , COMPL ETE urobilinogen ,semi-qn 0.2 mg/dL 0.2-1. 0 normal Not Available [facility] ([facility]) [address] [facility], [place], [address], 08/09/2024 06:47:21 08/09/19 25 08/09/2024 URINA LYSIS , COMPL ETE nitrite, urine NEGATI VE negati ve Not Available [facility] ([facility]) [address] [place], [address], 08/09/2024 06:47:21 08/09/19 25 08/09/2024 URINA LYSIS , COMPL ETE microscopic examination COMMEN T Marissa ott ws if indic ated. Not Available [facility] ([facility]) [address] [place], [address], 08/09/2024 06:47:21 08/09/19 25 08/09/2024 URINA LYSIS , COMPL ETE microscopic examination SEE BELOW: Micro scopi c was indic ated and was perfo rmed. Not Available [facility] ([facility]) [address] [place], [address], 08/09/2024 06:47:21 08/09/19 25 08/09/2024 URINA LYSIS , COMPL ETE WBC NONE SEEN /hpf 0 - 5 Not Available [facility] ([facility]) [address] [facility], [place], [address], 08/09/2024 06:47:21 08/09/19 25 08/09/2024 URINA LYSIS , COMPL ETE RBC NONE SEEN /hpf 0 - 2 Not Available [facility] ([facility]) [address] [facility], [place], [address], 08/09/2024 06:47:21 08/09/19 25 08/09/2024 URINA LYSIS , COMPL ETE epithelial cells (non renal) 0-10 /hpf 0 - 10 Not Available [facility] ([facility]) [address] [facility], [place], [address], 08/09/2024 06:47:21 08/09/19 25 08/09/2024 URINA LYSIS , COMPL ETE epithelial cells (renal) GROUND CREWMAN Not Available [facility] ([facility]) [address] [facility], [place], [address], 08/09/2024 06:47:21 08/09/19 25 08/09/2024 URINA LYSIS , COMPL ETE casts NONE SEEN /lpf none seen Not Available [facility] ([facility]) [address] [place], [address], 08/09/2024 06:47:21 08/09/19 25 08/09/2024 URINA LYSIS , COMPL ETE cast type GROUND CREWMAN Not Available [facility] ([facility]) [address] [place], [address], 08/09/2024 06:47:21 08/09/19 25 08/09/2024 URINA LYSIS , COMPL ETE crystals GROUND CREWMAN Not Available [facility] ([facility]) [address] [facility], [place], [address], 08/09/2024 06:47:21 08/09/19 25 08/09/2024 URINA LYSIS , COMPL ETE crystal type GROUND CREWMAN Not Available [facility] ([facility]) [address] [facility], [place], [address], 08/09/2024 06:47:21 08/09/1908/09/2024 URINA LYSIS , COMPL ETE mucus threads GROUND [employer]WMAN Not Available [facility] ([facility]) [address] [facility], [place], [address], 08/09/2024 06:47:21 08/09/1908/09/2024 URINA LYSIS , COMPL ETE bacteria NONE SEEN none seen/f ew Not Available [facility] ([facility]) [address] [facility], [place], [address], 08/09/2024 06:47:21 08/09/1908/09/2024 URINA LYSIS , COMPL ETE yeast GROUND [employer]MAN Not Available [facility] ([facility]) [address] [facility], [place], [address], 08/09/2024 06:47:21 08/09/1908/09/2024 URINA LYSIS , COMPL ETE trichomonas GROUND [employer] Not Available [facility] ([facility]) [address] [facility], [place], [address], 08/09/2024 06:47:21 08/09/19 25 08/09/2024 URINA LYSIS , COMPL ETE comment GROUND CREWMAN Not Available [facility] ([facility]) [address] [facility], [place], [address], 08/09/2024 06:47:21 08/09/19 25 08/09/2024 TSH+F REE T4 TSH 0.595 uIU/m L 0.450- 4.500 normal Not Available [facility] ([facility]) [address] [place], [address], 08/09/2024 07:42:31 08/09/19 25 08/09/2024 TSH+F REE T4 T4,free(dire ct) 1.32 NG/dL 0.82-1 .77 normal Not Available [facility] ([facility]) [address] [place], [address], 08/09/2024 07:42:31 08/09/19 25 08/09/2024 LIPID PANEL cholesterol, total 147 mg/dL 100-19 9 normal Not Available [facility] ([facility]) [address] [place], [address], 08/09/2024 07:42:32 08/09/19 25 08/09/2024 LIPID PANEL triglyceride s 40 mg/dL 0-149 normal Not Available [facility] ([facility]) [address] [place], [address], 08/09/2024 07:42:32 08/09/19 25 08/09/2024 LIPID PANEL HDL cholesterol 51 mg/dL >39 normal Not Available [facility] ([facility]) [address] [place], [address], 08/09/2024 07:42:32 08/09/19 25 08/09/2024 LIPID PANEL VLDL cholesterol kiran 9 mg/dL 5-40 Not Available [facility] ([facility]) [address] [place], [address], 08/09/2024 07:42:32 08/09/19 25 08/09/2024 LIPID PANEL LDL chol calc ([facility]) 87 mg/dL 0-99 Not Available [facility] ([facility]) [address] [place], [address], 08/09/2024 07:42:32 08/09/19 25 08/09/2024 LIPID PANEL LDL calc comment: GROUND [employer]WMAN Not Available [facility] ([facility]) [address] [place], [address], 08/09/2024 07:42:32 08/09/19 25 08/09/2024 HEMOG LOBIN A1C hemoglobin A1C 8.9 % 4.8-5. 6 above high normal Predi abete s: 5.7 - 6.4 Diabe leighann: >6.4 Glyce [place] contr ol for adult s with diabe leighann: <7.0 Not Available [facility] ([facility]) [address] [place], [address], 08/09/2024 08:21:04 08/09/19 25 08/09/2024 COMP. METAB OLIC PANEL (14) glucose 191 mg/dL 70-99 above high normal Not Available [facility] ([facility]) [address] [place], [address], 08/09/2024 09:13:10 08/09/19 25 08/09/2024 COMP. METAB OLIC PANEL (14) BUN 7 mg/dL 6-20 normal Not Available [facility] ([facility]) [address] [place], [address], 08/09/2024 09:13:10 08/09/19 25 08/09/2024 COMP. METAB OLIC PANEL (14) creatinine 0.52 mg/dL 0.57-1 .00 below low normal Not Available [facility] ([facility]) [address] [place], [address], 08/09/2024 09:13:10 08/09/19 25 08/09/2024 COMP. METAB OLIC PANEL (14) eGFR 135 mL/mi n/1.7 3 >59 normal Not Available [facility] ([facility]) [address] [place], [address], 08/09/2024 09:13:10 08/09/19 25 08/09/2024 COMP. METAB OLIC PANEL (14) BUN/creatini ne ratio 13 9-23 normal Not Available [facility] ([facility]) [address] [facility], [place], [address], 08/09/2024 09:13:10 08/09/19 25 08/09/2024 COMP. METAB OLIC PANEL (14) sodium 138 mmol/ L 134-14 4 normal Not Available [facility] ([facility]) [address] [facility], [place], [address], 08/09/2024 09:13:10 08/09/19 25 08/09/2024 COMP. METAB OLIC PANEL (14) potassium 4.4 mmol/ L 3.5-5. 2 normal Not Available [facility] ([facility]) [address] [facility], [place], [address], 08/09/2024 09:13:10 08/09/19 25 08/09/2024 COMP. METAB OLIC PANEL (14) chloride 103 mmol/ L 96-106 normal Not Available [facility] ([facility]) [address] [facility], [place], [address], 08/09/2024 09:13:10 08/09/19 25 08/09/2024 COMP. METAB OLIC PANEL (14) carbon dioxide, total 21 mmol/ L 20-29 normal Not Available [facility] ([facility]) [address] [facility], [place], [address], 08/09/2024 09:13:10 08/09/19 25 08/09/2024 COMP. METAB OLIC PANEL (14) calcium 9.2 mg/dL 8.7-10 .2 normal Not Available [facility] ([facility]) [address] [facility], [place], [address], 08/09/2024 09:13:10 08/09/19 25 08/09/2024 COMP. METAB OLIC PANEL (14) protein, total 7.2 g/dL 6.0-8. 5 normal Not Available [facility] ([facility]) [address] [place], [address], 08/09/2024 09:13:10 08/09/19 25 08/09/2024 COMP. METAB OLIC PANEL (14) albumin 4.9 g/dL 4.0-5. 0 normal Not Available [facility] ([facility]) [address] [place], [address], 08/09/2024 09:13:10 08/09/19 25 08/09/2024 COMP. METAB OLIC PANEL (14) globulin, total 2.3 g/dL 1.5-4. 5 Not Available [facility] ([facility]) [address] [place], [address], 08/09/2024 09:13:10 08/09/19 25 08/09/2024 COMP. METAB OLIC PANEL (14) bilirubin, total 0.3 mg/dL 0.0-1. 2 normal Not Available [facility] ([facility]) [address] [place], [address], 08/09/2024 09:13:10 08/09/19 25 08/09/2024 COMP. METAB OLIC PANEL (14) alkaline phosphatase 66 IU/L 44-121 normal Not Available [facility] ([facility]) [address] [place], [address], 08/09/2024 09:13:10 08/09/19 25 08/09/2024 COMP. METAB OLIC PANEL (14) AST (SGOT) 17 IU/L 0-40 normal Not Available [facility] ([facility]) [address] [place], [address], 08/09/2024 09:13:10 08/09/19 25 08/09/2024 COMP. METAB OLIC PANEL (14) ALT (SGPT) 15 IU/L 0-32 normal Not Available [facility] ([facility]) [address] [place], [address], 08/09/2024 09:13:10 08/09/19 25 08/09/2024 ALBUM IN/CR EAT RATIO , RANDO M UR creatinine, urine 112.8 mg/dL not estab. normal Not Available [facility] ([facility]) [address] [place], [address], 08/09/2024 20:10:22 08/09/19 25 08/09/2024 ALBUM IN/CR EAT RATIO , RANDO M UR albumin, urine 38.2 ug/mL not estab. Not Available [facility] ([facility]) [address] [place], [address], 08/09/2024 20:10:22 08/09/19 25 08/09/2024 ALBUM IN/CR EAT RATIO , RANDO M UR alb/creat ratio 34 mg/g_ creat 0-29 above high normal Deena l: 0 - 29 Moder ately incre ased: 30 - 300 Sever alexander incre ased: >300 Not Available [facility] ([facility]) [address] [place], [address], 08/09/2024 20:10:22 08/09/19 25 08/17/2024 JUANITA/I CA512 /INSU JOSEFINA [facility] H.S. anti juanita 65 antibodies >120 U/mL above high normal Refer ence Range : <5.0 Negat axel > or = 5.0 Posit axel Not Available [facility] [address] [facility], [place], [address], 08/22/2024 04:15:41 08/09/19 25 08/19/2024 JUANITA/I CA512 /INSU JOSEFINA AB H.S. insulin antibodies <5.0 uu/mL This test is also known as insul in autoa ntibo dy or IAA. This test was devel oped and its perfo rmanc e calvin cteri stics deter mined by [facility]. It has not been clear ed or appro natalio by the Food and Drug Admin istra tion. Refer ence Range : <5.0 Negat axel > or = 5.0 Posit axel Not Available [facility] [address] [place], [address], 08/22/2024 04:15:41 08/09/1908/22/2024 JUANITA/I CA512 /INSU JOSEFINA AB H.S. ia-2 autoantibodi es 93 U/mL above high normal Refer ence Range : <7.5 Negat axel > or = 7.5 Posit axel Not Available [facility] [address] [place], [address], 08/22/2024 04:15:41 Result Notes None recorded. Problems Name Problem SNOMED Code Status Onset Date Resolution Date Notes Provider Name and Address Organization Details Recorded Time Diabetes mellitus 66714706 Active 025 Mi Page null, [place] - [facility] 10:45:44 Anemia 032476996 Active 025 Mi Page null, [place] - [facility] 10:45:51 Anxiety 69944820 Active 025 Mi Page null, [place] - [facility] 10:45:57 Type 1 diabetes mellitus [id number] Active 025 Bay Page MD [address] [place] [address], [id number] , [facility] - [facility] 5 10:57:10 Problem Notes None recorded. Medical Equipment None Reported. Allergies No known drug allergies Medications Name Sig Start Date Stop Date Status Note LastModified by Organization Details LastModified Time citalopram 20 mg tablet Take 1 tablet every day by oral route. active Not Available Not Available No t Available glucose 4 gram chewable tablet Chew 4 tablets by mouth if BG is 70mg/dL or less. Wait 15 minutes and check BG. If not over 70mg/dL repeat. 2024 active Not Available Not Available Not Avai lable Lantus Solostar U-100 Insulin 100 unit/mL (3 mL) subcutaneou s pen Inject 10 units every day by subcutaneo us route. 2024 active Pt has 4 month supply at home 08/08/24 Not Available Not Available Not Available Humalog KwikPen (U-100) Insulin 100 unit/mL subcutaneou s Inject 5 units 3 times a day by subcutaneo us route before meal(s). 2024 active Pt has 4 month supply at home 08/08/24 Not Available Not Available Not Available Baqsimi 3 mg/actuatio n nasal spray Use 3mg (one actuation) into a single nostril: if no response, may repeat in 15 minutes using a new intranasal device and the other nostril 2024 active Not Available Not Available Not Avai lable Vitals Date Recorded Body height Body mass index (BMI) Body weight Heart rate Oxygen saturation Oxygen saturation in Arterial blood by Pulse oximetry Respiratory rate Body temperature Systolic And Diastolic Provider Name and Address Organization Details Last Updated DateTime 170.18 cm 19.5 kg/m2 07822.8 9 g 82 /min 100 % 100 % 18 /min 98.6 [degF] 123/81 mm[Hg] Mi Page [facility] 10:47:37 Social History Question Answer Notes LastModified by Organizat ion Details LastModified Time Tobacco Smoking Status Never Smoker Not Available [employer] 08/08/2024 10:25:23 Do You Have An Advance Directive? No [email or web address] Information n ot available 08/08/2024 What Is Your Level Of Caffeine Consumption? Occasional [email or web address] Information not available 08/08/2024 Risk Stratification Score (AAFP) 1 [id number] Information not available 08/08/2024 In The Last 12 Months Did You Skip Medications To Save Money? No [email or web address] Information not available 08/08/2024 In The Last 12 Months, Was There A Time When You Needed To See A Doctor But Could Not Because Of Cost? No [email or web address] Information not available 08/08/2024 In The Last 12 Months, Have You Ever Had To Go Without Health Care Because You Didn t Have A Way To Get There? No API-27 Information not available 08/08/2024 In The Last 12 Months Did You Ever Eat Less Than You [place] You Should Because There Wasn t Enough Money For Food? No API-27 Information not available 08/08/2024 In The Past 12 Months Has The Electric, Gas, Oil, Or Water Company Threatened To Shut Off Services In Your Home? No [email or web address] Information not available 08/08/2024 Are You Worried That In The Next 2 Months You May Not Have Stable Housing? No [email or web address] Information not available 08/08/2024 Do You Feel Physically And Emotionally Unsafe Where You Currently Live? No API-[email or web address] Information not available 08/08/2024 Do You Want Help Finding Or Keeping Work Or A Job? No [email or web address] Information not available 08/08/2024 Do You Want Help With School Or Training? For Example, Starting Or Completing Job Training Or Getting A High School Diploma, GED, Or Equivalent? No [email or web address] Information not available 08/08/2024 Do You Often Feel Lonely? No [email or web address] Information not available 08/08/2024 0) Information Provided By : Patient [email or web address] Information not available 08/08/2024 1a) Does The Patient/Caregiver/ Family Report The PATIENT Having Any Of These NEW Symptoms Such As Cough? No [email or web address] Information not available 08/08/2024 1b) Does The Patient/Caregiver/ Family Report The PATIENT Having Any Of These NEW Symptoms Such As Diarrhea? No API-27 Information not available 08/08/2024 1c) Does The Patient/Caregiver/ Family Report The PATIENT Having Any Of These NEW Symptoms Such As Fever/chills? No [email or web address] Information not available 08/08/2024 1d) Does The Patient/Caregiver/ Family Report The PATIENT Having Any Of These NEW Symptoms Such As Nasal Congestion/Runny Nose? No [email or web address] Information not available 08/08/2024 1e) Does The Patient/Caregiver/ Family Report The PATIENT Having Any Of These NEW Symptoms Such As Respiratory Distress (acute)? No API-27 Information no t available 08/08/2024 1f) Does The Patient/Caregiver/ Family Report The PATIENT Having Any Of These NEW Symptoms Such As Rash? No API-27 Information not available 08/08/2024 1g) Does The Patient/Caregiver/ Family Report The PATIENT Having Any OTHER NEW Symptoms (list)? If No NEW Symptoms, Enter No No [email or web address] Information not available 08/08/2024 What Was The Date Of Your Most Recent Tobacco Screening? 08/08/2024 [email or web address] Information not available 08/08/2024 Do You Have Smoke And Carbon Monoxide Detectors In Your Home? Yes [email or web address] Information not available 08/08/2024 Are You Passively Exposed To Smoke? No API-27 Information no t available 08/08/2024 Has Tobacco Cessation Counseling Been Provided? No API-27 Information not available 08/08/2024 How Many Years Have You Used E-cigarettes Or Vape? 6 [email or web address] Information not available 08/08/2024 Sex: Female Functional Status Question Answer Note LastModified by Organizat ion Details LastModified Time Do you use any illicit or recreational drugs? No [email or web address] Information not available 08/08/2024 Do you or have you ever used smokeless tobacco? Never used smokeless tobacco [email or web address] Information not available 08/08/2024 Do you or have you ever used e-cigarettes or vape? Current user of electronic cigarettes [email or web address] Information not available 08/08/2024 What is your exercise level? Occasional [email or web address] Information not available 08/08/2024 Mental Status None recorded. Family History Relationship Description Onset Age of this Age Resolved Age Notes LastModified by Organization Details LastModified Time Father No current problems or disability [email or web address] Not available 0 08/08/2024 10:46:18 Mother No current problems or disability [email or web address] Not available 0 08/08/2024 10:46:18 Medical History Condition Response diabetes mellitus Y Gynecological HistoryNo gynecological history recorded. Obstetrics History GPAL:G 0 P 0 0 0 0 Past Encounters Encounter ID Performer Location Encounter Start Date Encounter Closed Date Diagnosis/Indication Diagnosis SNOMED-CT Code Diagnosis ICD10 Code Diagnosis Note [id number] Bay Page MD [facility] [address] [place] [address] 08/08/2024 10:22:58 08/08/2024 12:28:30 Type 1 diabetes mellitus 04003806 E10.9 to pharm [id number] Bay Page MD [facility] [address] [place] [address] 08/08/2024 12:18:39 08/08/2024 13:27:48 Diabetes mellitus 93451009 E13.9 Diagnosis of type 1 or 2 diabetes has not been confirmed. Analyzed Dexcom G7 CGM reports. Patient is time in range only 18%. No hypoglycem ia episodes noted. Discussed glucose variabilit y and the possible complicati ons of uncontroll ed diabetes, including but not limited to, CVA/NH/bli ndness/amp utations, etc. Majority of visit spent addressing her concerns related to hypoglycem ia, and educating her on S/S hypoglycem ia and treatment with rule of 15. Educated patient on Baqsimi 3mg nasal spray. Patient is very interested in the OmniPod 5 insulin pump. Educated patient on use of pump. Using shared decision making, we will consider ordering the pump when her lab results are available. Discussed that if patient does not have insurance she will need to purchase the pump out right which she states she can afford to do. It is unclear if patient would qualify for the OmniPod pump with [place] Medicaid if she has type 2 diabetes. Additional ly, discussed the roles of prandial and basal insulin and diabetes. Using shared decision making, patient will inject Lantus U100 insulin 10 units once daily and Humalog U100 insulin 5 units before meals. We will follow-up in 1 week to discuss lab results and review Dexcom G7 reports.. Health Concerns Section Related Observation LastModified by Organization Detai ls LastModified Time None Recorded Concern Status LastModified by Organization Details LastModified Time None Recorded Advance Directives Directive N: Payers Insurance Date Sequence Insurance Name Policy Number Policy Tejada Covered Member ID Tejada Member ID Guarantor Name 08/08/2024 SLIDING FEE SCHEDULE - DISCOUNT Trever Kebede 07/19/2024 1 *SELF PAY* Karine Kebede Notes Date Note Type Note Provider Name and Address Organization Details Recorded Time 08/08/2024 text/html Diabetes F/U*Rep orted bypatient.Severity:co ntrolled Context:normal range of home blood sugars (in the low 100s); seeing eye doctor regularly; checking feet regularly Associated Symptoms:no weight gain; no weight loss; no dizziness; no sweats; no headaches; no confusion Medication Adherence:greater than 90% Bay Page MD [address] [place] [address], [place], [address], [facility] - [place] - [place] 08/08/2024 11:58:18 08/08/2024 text/html [facility] management of DM and concomitant disease states. Patient diagnosed with possible type 1 diabetes with the of her third child. No antibody testing has been done previously. Patient was seen immediately after PCP appointment where juanita 65, IAA, and C-peptide have been ordered. Patient is a resident of [place] and is applying for [place] Medicaid. She currently has no insurance. She reports adherence to medications as noted below. She denies adverse effects to medications. When patient obtains [place] Medicaid she will find a PCP in [place] until then she will work with PCP at this office. She expresses interest in an OmniPod 5 insulin pump. S/S hypo or hyperglycemia: Patient states she feels awful at times but does not know actual glucose readings. Reports that she injects Humalog U100 insulin 10 units when her glucose level on Dexcom G7 is above 600 mg/dL and glucose will sometimes decrease to 100 mg/dL. She states this is when she feels bad. She additionally states she is deathly afraid of low blood sugar, passing out and not waking up again . She denies ever having an incidence of severe hypoglycemia or DKA. Diet/Exercise: She follows no particular diet and states she gets her exercise chasing her 3 children, 6 years old, 4 years old and 8 months old. T2D/T1D: Diagnosis of type 1 diabetes will be confirmed or ruled out when lab results from PCP are available.-Humalog U100 insulin 10 units as needed, patient states she uses from 2-5 times per day without regard to meals-Lantus U100 insulin patient has this insulin in her possession but does not know the dose that was prescribed to use as she has not used it due to thinking this is the insulin that will cause her to go extremely low SMBG/CGM: Dexcom G7 Dexcom Clarity David marinelli NormanDate of : [id number] at: Aug 08, 2024 12:06 PM CDTReporting period: TueJul 26, 2024 - TueAug 08, 2024 Glucose DetailsAverage glucose: 250 mg/dLGMI: 9.3%Standard deviation: 75 mg/dLCoefficient of Variation: 29.9% Time in RangeVery High: 47%High: 35%In Range: 18%Low: 0%Very Low: 0%Target Ueigl49-069 mg/dL Sensor usageDays with data: 01/27Time active: 88%Avg. calibrations per day: 0.0 Insulin (daily averages)Long-acting / Fast-acting ratio: 0% / 100%Long-acting / Fast-acting ratio: 0.0 units / 6.0 unitsTotal daily dose: 6.0 units/day# Fast-acting doses/day: 1.0 doses/day No diagnosis hypertension or albuminuria. No labs on file as of today. HLD/Statin: Not taking a moderate intensity statin. Not using control. Vaccines/Preventive Exams:Vaccines per EHR: Declines vaccinationsEye Exam: Does not remember when she last had an eye examFoot Exam: Has not ever had a foot examDDS: Does not see a dentist as she does not have dental insurance Radha Rodriguez, PHARM-D [address] [place] [address], [place], [address], [place] - [place] 08/08/2024 13:18:43 OBGyn Episode No OBEpisode recorded.
--- OUTSIDE RECORDS SUMMARY | 2024-11-17 15:47 | XMS_ITS | Data Portability ---
Author Organization [facility] Riaz Giles [facility], [facility] Address [address] [facility] [address] [place] [address] Care Team Providers Care Galvanometer Assembler Name Role Phone ARMANDOUMM BAJWA Primary Care Provider [phone] Assessment Encounter Date Assessment Date Assessment LastModified by Organization Details LastModified Time 03/26/2024 03/26/2024 Annual gynecological exam performed. . [email or web address] Not available 03/26/2024 17:13:58 Plan of Treatment Reminders Order Date Submit Date Provider Last Modified By Organization Details Last Modified Time Details Appointments None recorded. Lab hemoglobin A1C/hemoglo bin total, QN, blood 2023 024 [facility], [address] [facility], [facility], [place], [address], 13:02:23 CMP, serum or plasma 2023 024 [facility], [address] [facility], [facility], [place], [address], 13:23:09 CBC 2023 024 [facility], [address], [address], [place], [address], 12:57:45 thyrotropin , QN, serum or plasma 2023 024 [facility], [address], [address], [place], [address], 4 14:00:47 pap, IG + CT/NG + reflex HPV 2023 024 [email or web address], [address], [address], [place], [address], 4 08:50:27 HbA1c (hemoglobin A1c), blood 2023 024 [facility] ([facility]), [address] [facility], [place], [address], 4 10:06:03 Referral endocrinolo gy referral 2024 025 [email or web address] 4 Farhat Mares MD, [address] [facility], [place], [address], 5 13:16:21 Procedures None recorded. Surgeries None recorded. Imaging None recorded. Medication Orders Lexapro 20 mg tablet 2023 024 [facility][id number], [address], [facility], [place], [address], 4 12:31:56 insulin glargine (U-100) 100 unit/mL (3 mL) subcutaneou s pen 2023 024 [email or web address] [id number], [address], [facility], [place], [address], 4 09:46:17 insulin lispro (U-100) 100 unit/mL subcutaneou s pen 2023 024 [id number], [address], [address], [place], [address], 4 12:09:36 Lexapro 10 mg tablet 2023 024 [facility] #[id number], [address], [address], 11:30:43 Patient TargetsNo targets recorded. Patient InstructionsNo instructions recorded. Reason for Referral Endocrinology Referral for U ncontrolled type 1 diabetes mellitus Referring Physician: Fran Estes, Family Medicine, Encounter Date: 06/29/2024 Results Created Date Observation Date Name Description Value Unit Range Abnormal Flag Note LastModifiedBy Organization Detail LastModifiedTime 02/17/2002/17/2024 HbA1c (hemo globi n A1c), blood HbA1c 6.1 Not Available [facility] ([facility]) [address] [place], [address], 02/17/2024 09:43:24 03/26/20 24 04/02/2024 THINP REP TIS PAP (REFL ) HPV MRNA E6/E7 clinical information: normal Deena l exam Not Available [address] [address] [place], [address], 04/02/2024 20:12:59 03/26/20 24 04/02/2024 THINP REP TIS PAP (REFL ) HPV MRNA E6/E7 LMP: normal NONE GIVEN Not Available [address] [address] [place], [address], 04/02/2024 20:12:59 03/26/20 24 04/02/2024 THINP REP TIS PAP (REFL ) HPV MRNA E6/E7 prev. Pap: normal NONE GIVEN Not Available [facility] [address] [address] [place], [address], 04/02/2024 20:12:59 03/26/20 24 04/02/2024 THINP REP TIS PAP (REFL ) HPV MRNA E6/E7 prev. BX: normal NONE GIVEN Not Available [address] [address] [place], [address], 04/02/2024 20:12:59 03/26/20 24 04/02/2024 THINP REP TIS PAP (REFL ) HPV MRNA E6/E7 source: normal Cervi x, Endoc ervix Not Available [address], [address], 04/02/2024 20:12:59 03/26/20 24 04/02/2024 THINP REP TIS PAP (REFL ) HPV MRNA E6/E7 statement of adequacy: normal Satis facto ry for evalu ation . Endoc ervic al/tr ansfo rmati on zone compo nent prese nt. Age and/o r menst rual statu s not provi ded Not Available [address], [address], 04/02/2024 20:12:59 03/26/20 24 04/02/2024 THINP REP TIS PAP (REFL ) HPV MRNA E6/E7 interpretati on/result: normal Cytol ogy Resul ts: Negat axel for intra epith elial lesio n or kellie jaramillo . Not Available [address] [address] [place], [address], 04/02/2024 20:12:59 03/26/20 24 04/02/2024 THINP REP TIS PAP (REFL ) HPV MRNA E6/E7 comment: normal This Pap test has been evalu ated with compu ter ki carina techn ology . Not Available [address] [address] [place], [address], 04/02/2024 20:12:59 03/26/20 24 04/02/2024 THINP REP TIS PAP (REFL ) HPV MRNA E6/E7 cytotechnolo gist: normal MVB, CT( CP) CT Scree tashia Locat ion: [address] [place] [address] Not Available [address] [address] [place], [address], 04/02/2024 20:12:59 03/26/20 24 04/02/2024 THINP REP TIS PAP (REFL ) HPV MRNA E6/E7 comment EXPLA NATOR Y NOTE: The Pap is a scree tashia test for cervi kiran cance r. It is not a diagn ostic test and is subje ct to false negat axel and false posit axel resul ts. It is most relia ble when a satis facto ry sampl e, regul dexter obtai thierry, is submi tted with relev ant clini kiran findi ngs and histo ry, and when the Pap resul t is evalu ated along with histo mallory and curre nt clini kiran infor matio n. Not Available [facility] [address] [place], [address], 04/02/2024 20:12:59 05/11/20 24 05/11/2024 CBC WBC 5.0 x10 4.0-10 .5 Not Available [facility] [address] [facility] [address], [place], [address], 05/11/2024 12:57:45 05/11/20 24 05/11/2024 CBC RBC 4.32 x10 3.50-5 .50 Not Available [facility] [address] [facility] [address], [place], [address], 05/11/2024 12:57:45 05/11/20 24 05/11/2024 CBC HGB 8.9 g/dL 12.0-1 6.0 low Not Available [facility] [address] [facility], [place], [address], 05/11/2024 12:57:45 05/11/20 24 05/11/2024 CBC HCT 28.4 % 37.0-4 7.0 low Not Available [facility] [address] [facility] [address], [place], [address], 05/11/2024 12:57:45 05/11/20 24 05/11/2024 CBC MCV 65.7 fL 80.0-9 9.9 low Not Available [facility] [address] [facility] 1, [place], [address], 05/11/2024 12:57:45 05/11/20 24 05/11/2024 CBC MCH 20.6 pg 27.0-3 2.0 low Not Available [facility] [address] [facility] 1, [place], [address], 05/11/2024 12:57:45 05/11/20 24 05/11/2024 CBC MCHC 31.3 g/dL 32.0-3 6.0 low Not Available [facility] [address] [facility] 1, [place], [address], 05/11/2024 12:57:45 05/11/20 24 05/11/2024 CBC RDW 19.0 % 11.5-1 4.5 high Not Available [facility] [address] [facility] 1, [place], [address], 05/11/2024 12:57:45 05/11/20 24 05/11/2024 CBC plt 337.9 x10 140.0- 451.0 Not Available [facility] [address] [facility] 1, [place], [address], 05/11/2024 12:57:45 05/11/20 24 05/11/2024 CBC lymphocytes % 22.8 % 20.0-5 0.0 Not Available [facility] [address] [facility] 1, [place], [address], 05/11/2024 12:57:45 05/11/20 24 05/11/2024 CBC granulcytes % 68.8 % 30.0-7 0.0 Not Available [facility] [address] [facility] 1, [place], [address], 05/11/2024 12:57:45 05/11/20 24 05/11/2024 CBC monocytes % 5.6 % 2.0-16 .0 Not Available [facility] [address] [facility] 1, [place], [address], 05/11/2024 12:57:45 05/11/20 24 05/11/2024 CBC granulcytes# 3.4 x10 Not Nataliia ilable [facility] [address] [facility], [place], [address], 05/11/2024 12:57:45 05/11/20 24 05/11/2024 CBC lymphocytes # 1.1 x10 Not Available [facility] [address] [address], [place], [address], 05/11/2024 12:57:45 05/11/20 24 05/11/2024 CBC monocytes # 0.3 x10 Not Avai lable [facility] [address] [address], [place], [address], 05/11/2024 12:57:45 05/11/20 24 05/11/2024 HBA1C hemaglobin A1C 6.1 4.2-6. 5 Not Available [facility] [address] [facility] [address] [address], [place], [address], 05/11/2024 13:02:23 05/11/20 24 05/11/2024 CMP (FEMA LE) glucose 172.0 mg/dL 60.0-9 9.0 high Not Available [facility] [address] [facility] [address] [address], [place], [address], 05/11/2024 13:23:09 05/11/20 24 05/11/2024 CMP (FEMA LE) BUN (blood urea nitrogen) 10.0 mg/dL 10.0-2 6.0 Not Available [facility] [address] [facility], [place], [address], 05/11/2024 13:23:09 05/11/20 24 05/11/2024 CMP (FEMA LE) creatinine (serum) 0.6 mg/dL 0.4-1. 5 Not Available [facility] [address] [facility] 1, [place], [address], 05/11/2024 13:23:09 05/11/20 24 05/11/2024 CMP (FEMA LE) BUN/creatini ne ratio 16.67 ratio Not Available [facility] [address] [facility] 1, [place], [address], 05/11/2024 13:23:09 05/11/20 24 05/11/2024 CMP (FEMA LE) eGFR calculated 134.1 Not Available [facility] [address] [facility] 1, [place], [address], 05/11/2024 13:23:09 05/11/20 24 05/11/2024 CMP (FEMA LE) total protein 8.1 g/dL 6.0-8. 5 Not Available [facility] [address] [facility] 1, [place], [address], 05/11/2024 13:23:09 05/11/20 24 05/11/2024 CMP (FEMA LE) total bilirubin 0.4 mg/dL 0.2-1. 3 Not Available [facility] [address] [facility] 1, [place], [address], 05/11/2024 13:23:09 05/11/20 24 05/11/2024 CMP (FEMA LE) albumin 5.1 g/dL 3.5-5. 5 Not Available [facility] [address] [facility] 1, [place], [address], 05/11/2024 13:23:09 05/11/20 05/11/2024 CMP (FEMA LE) globulin 3.0 calc Not Available [facility] [address] [facility] 1, [place], [address], 05/11/2024 13:23:09 05/11/20 24 05/11/2024 CMP (FEMA LE) AST (SGOT) 23.0 U/L 0.0-46 .0 Not Available [facility] [address] [facility] 1, [place], [address], 05/11/2024 13:23:09 05/11/20 24 05/11/2024 CMP (FEMA LE) altv (SGPT) 18.0 U/L 13.0-6 9.0 normal Not Available [facility] [address] [facility], [place], [address], 05/11/2024 13:23:09 05/11/20 24 05/11/2024 CMP (FEMA LE) A/G ratio 1.7 ratio Not Available [facility] [address] [facility], [place], [address], 05/11/2024 13:23:09 05/11/20 24 05/11/2024 CMP (FEMA LE) ALP phos 53.0 U/L 30.0-1 40.0 normal Not Available [facility] [address] [facility], [place], [address], 05/11/2024 13:23:09 05/11/20 24 05/11/2024 CMP (FEMA LE) calcium 9.3 mg/dL 8.4-10 .5 Not Available [facility] [address] [facility] 1, [place], [address], 05/11/2024 13:23:09 05/11/20 24 05/11/2024 CMP (FEMA LE) sodium 138.0 mmol/ L 136.0- 145.0 Not Available [facility] [address] [facility] 1, [place], [address], 05/11/2024 13:23:09 05/11/20 24 05/11/2024 CMP (FEMA LE) potassium 3.7 mmol/ L 3.5-5. 1 Not Available [facility] [address] [facility] 1, [place], [address], 05/11/2024 13:23:09 05/11/20 24 05/11/2024 CMP (FEMA LE) chloride 103.0 mmol/ L 98.0-1 10.0 normal Not Available [facility] [address] [facility] 1, [place], [address], 05/11/2024 13:23:09 05/11/20 24 05/11/2024 CMP (FEMA LE) C02 26.0 mmol/ L 22.0-3 1.0 Not Available [facility] [address] [facility] 1, [place], [address], 05/11/2024 13:23:09 05/11/20 24 05/11/2024 CMP (FEMA LE) anion gap 9.0 calc Not Available [facility] [address] [facility] 1, [place], [address], 05/11/2024 13:23:09 05/11/20 24 05/11/2024 CMP (FEMA LE) osmolality 287.9 calc Not Available [facility] [address] [facility] 1, [place], [address], 05/11/2024 13:23:09 05/11/20 24 05/11/2024 TSH TSH 0.55 uIU/m L 0.49-3 .82 Not Available [facility] [address] [facility] 1, [place], [address], 05/11/2024 14:00:47 05/15/20 24 05/16/2024 IRON AND TOTAL IRON GOLDEN NG CAPAC ITY iron, total 12 mcg/d L 40-190 low Not Available [address], [address], 05/16/2024 09:07:55 05/15/20 24 05/16/2024 IRON AND TOTAL IRON GOLDEN NG CAPAC ITY iron binding capacity 459 mcg/d L_(ca lc) 250-45 0 high Not Available [address], [address], 05/16/2024 09:07:55 05/15/20 24 05/16/2024 IRON AND TOTAL IRON GOLDEN NG CAPAC ITY % saturation 3 %_(ca lc) 16-45 low Not Available [address], [address], 05/16/2024 09:07:55 05/15/20 24 05/16/2024 RETIC ULOCY TE COUNT reticulocyte count, automated 0.7 % normal Not Available [address], [address], 05/16/2024 09:07:56 05/15/20 24 05/16/2024 RETIC ULOCY TE COUNT reticulocyte , absolute 42892 cells /uL [address]- [address] normal Not Available [address], [address], 05/16/2024 09:07:56 05/15/20 24 05/16/2024 ALEJANDRINA TIN ferritin 2 NG/mL 16-154 low Not Available [address], [address], 05/16/2024 09:07:57 Result Notes None recorded. Problems Name Problem SNOMED Code Status Onset Date Resolution Date Notes Provider Name and Address Organization Details Recorded Time Frank carreno 874007685 Active 2022 GREGORIA CONDON ER null, [facility] 3 09:19:54 Blood group 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 637004611 Completed JENIFFER POWELL null, [facility] 4 08:51:21 Gestatio nal diabetes mellitus complica ting pregnanc y 35059485965 106 Active 2023 Fran Estes MD [address] [place] [address] , [facility] 4 12:13:34 Gestatio nal diabetes mellitus 92556030 Active 2023 Fran Estes MD [address] [place] [address] , [facility] 4 16:41:46 Increase d blood pressure 57738572 Active 2023 Fran Estes MD [address] [place] [address] , [facility] 4 12:37:55 Gestatio n period, 35 weeks 96512982 Active 2023 Fran Estes MD [address] [place] [address] , [facility] 4 09:36:42 Uncontro lled type 1 diabetes mellitus 745252127 Active 2023 Fran Estes MD [address] [place] [address] , [facility] 4 17:34:06 Anxiety 23863547 Active 2023 Fran Estes MD [address] [place] [address] , [facility] 4 09:46:29 Moderate recurren t major depressi on 02652138 Active 2023 Fran Estes MD [address] [place] [address], [address] [place] [address] , [facility] 4 10:31:59 Chronic diarrhea of unknown origin 26119274 Active 2023 Fran Estes MD [address] [place] [address], [address] [place] [address] , [facility] 4 12:01:27 Microcyt ic hypochro [place] anemia 83033627 Active 2023 Fran Estes MD [address] [place] [address], [address] [place] [address] , [facility] 4 07:51:21 Iron deficien cy anemia 10202160 Active 2024 Fran Estes MD [address] [place] [address], [address] , [facility] 5 08:13:28 Umbilica l hernia 089046685 Completed 201604/15/2017 Umbilica l Hernia - Status is Inactive ; 04/15/20 17 1:06PM by Gayle Silva CMT, Annotati on/Adden dum; Promoted ; acuity set as *; Not Available [facility] 3 03:07:55 Problem Notes None recorded. Medical Equipment None Reported. Allergies No known drug allergies Medications Name Sig Start Date Stop Date Status Note LastModified by Organization Details LastModified Time metformin 500 mg tablet TAKE 1 TABLET BY MOUTH TWICE A DAY 08/16 completed Not Available Not Available Not Available Novolin 70/30 U-100 Insulin 100 unit/mL subcutane ous suspensio n INJECT 6 UNITS TWICE A DAY SUBCUTAN EOUSLY 03/16 completed Not Available Not Available Not Available Depo-Prov era 150 mg/mL intramusc ular suspensio n Q 3 months 03/01 completed [address]; Recorded 06/05/19 23 11:18AM by Geno King (Authori kim through [employer]), Annotati on/Adden dum; Refill Quantity : 1; Millilit er; Not Available Not Available Not Available ferrous sulfate 325 mg (65 mg iron) tablet Take 1 tablet every day by oral route. 2024 active Not Available Not Available Not Avai lable needles, henriquez disposabl e 22 x 1 Use needle to administ er insulin 4 times a day active Not Available Not Available No t Available insulin lispro (U-100) 100 unit/mL subcutane ous pen INJECT 2 UNITS 3 TIMES A DAY BY SUBCUTAN EOUS ROUTE WITH MEAL(S). active Not Available Not Available No t Available escitalop ra 10 mg tablet TAKE 1 TABLET BY MOUTH EVERY DAY 05/11 completed Not Available Not Available Not Available escitalop ra 20 mg tablet TAKE 1 TABLET BY MOUTH EVERY DAY active Not Available Not Available No t Available insulin aspart (U-100) 100 unit/mL (3 mL) subcutane ous pen INJECT 2 UNITS 3 TIMES A DAY BY SUBCUTAN EOUS ROUTE WITH MEALS. 01/09 completed Not Available Not Available Not Available escitalop ra oxalate QD 03/01 completed Recorded 05/05/20 22 4:14PM by Umm Owens MD, Office Visit; Refill Quantity : 30; Tablet; Not Available Not Available Not Available Lantus Solostar U-100 Insulin 100 unit/mL (3 mL) subcutane ous pen INJECT 4 UNITS EVERY DAY BY SUBCUTAN EOUS ROUTE AT BEDTIME. active Not Available Not Available No t Available TRUEplus Insulin 0.5 mL 31 gauge x 5/16 syringe USE WITH INSULIN TWICE A DAY 02/16 completed Not Available Not Available Not Available BD Insulin Syringe Ultra-Fin e 1 mL 31 gauge x 5/16 USE DIRECTED . active Not Available Not Available No t Available Pentips Pen Needle 31 gauge x 5/16 USE DIRECTED 2024 active Not Available Not Available Not Avai lable TechLITE Pen Needle 31 gauge x 3/16 USE DIRECTED 2024 active Not Available Not Available Not Avai lable Gummies 01/08 completed Not Available Not Available Not Available Dexcom G7 Sensor device APPLY SENSOR DIRECTED EVERY 10 DAYS active Not Available Not Available No t Available Vitals Date Recorded Body height Body mass index (BMI) Body weight Oxygen saturation Oxygen saturation in Arterial blood by Pulse oximetry Heart rate Respiratory rate Body temperature Systolic And Diastolic Provider Name and Address Organization Details Last Updated DateTime 5 170.18 cm 20 kg/m2 23797.6 7 g 99 % 99 % 72 /min 16 /min 97.3 [degF] 112/70 mm[Hg] [facility] 5 11:30:07 Date Recorded Body height Body mass index (BMI) [Percentile] Per age and sex Body mass index (BMI) Body weight Body temperature Oxygen saturation Oxygen saturation in Arterial blood by Pulse oximetry Heart rate Systolic And Diastolic Provider Name and Address Organization Details Last Updated DateTime 4 170.18 cm 17 % 19.2 kg/m2 33539.0 7 g 97.5 [degF] 99 % 99 % 76 /min 120/70 mm[Hg] [facility] 4 09:29:59 Date Recorded Body height Body mass index (BMI) Body mass index (BMI) [Percentile] Per age and sex Body weight Body temperature Oxygen saturation Oxygen saturation in Arterial blood by Pulse oximetry Heart rate Systolic And Diastolic Provider Name and Address Organization Details Last Updated DateTime 4 170.18 cm 19.6 kg/m2 22 % 61328.7 5 g 97.6 [degF] 98 % 98 % 86 /min 122/74 mm[Hg] [facility] 4 12:12:00 Date Recorded Body height Body mass index (BMI) Body mass index (BMI) [Percentile] Per age and sex Body weight Body temperature Oxygen saturation Oxygen saturation in Arterial blood by Pulse oximetry Heart rate Systolic And Diastolic Provider Name and Address Organization Details Last Updated DateTime 4 170.18 cm 19.8 kg/m2 24 % 09988.4 4 g 97.5 [degF] 99 % 99 % 92 /min 120/78 mm[Hg] [facility] 4 15:05:24 Date Recorded Body height Body mass index (BMI) Body weight Body temperature Oxygen saturation Oxygen saturation in Arterial blood by Pulse oximetry Heart rate Systolic And Diastolic Provider Name and Address Organization Details Last Updated DateTime 4 170.18 cm 19.8 kg/m2 02834.7 4 g 97.8 [degF] 99 % 99 % 85 /min 120/80 mm[Hg] [facility] 4 11:33:51 Social History Question Answer Notes LastModified by [employer] Details LastModified Time Tobacco Smoking Status Former Smoker GREGORIA perez [facility] 03/01/2023 09:13:48 What Is Your Current Pack Years? 10packyears [email or web address] Information not available 06/29/2024 What Is Your Relationship Status? Information not available 03/01/2023 Are You Sexually Active? Yes Information not available 03/01/2023 Sex: Unknown Functional Status Question Answer Note LastModified by Organizat ion Details LastModified Time Do you use any illicit or recreational drugs? No Information not available 03/01/2023 What is your level of alcohol consumption? None Information not available 03/01/2023 Mental Status None recorded. Family History Relationship Description Onset Age of this Age Resolved Age Notes LastModified by Organization Details LastModified Time Maternal Grandmother Diabetes mellitus [email or web address] Not available 09:13:18 Medical History No medical history recorded. Gynecological History Statement/Question Response Date of Last Pap Smear Date of LMP 01/10/2023 LMP Definite Sexually Active? Y Obstetrics History GPAL:G 3 P 2 0 0 2 Type Value Full Term 2 Living 2 Total 3 Immunizations Vaccine Type Date Status Note Provider Nam e and Address Organization Details Recorded Time HPV9 7 completed GREGORIA perez [facility] 03/01/2023 09:10:18 IPV 5 completed TREBA NEUSCHWANDER null, [facility] 03/01/2023 09:10:18 MMR 8 completed TREBA NEUSCHWANDER null, [facility] 03/01/2023 09:10:18 MMR 4 completed TREBA NEUSCHWANDER null, [facility] 03/01/2023 09:10:18 pneumococcal conjugate PCV 7 5 completed TREBA NEUSCHWANDER null, [facility] 03/01/2023 09:10:18 pneumococcal conjugate PCV 7 6 completed TREBA NEUSCHWANDER null, [facility] 03/01/2023 09:10:18 pneumococcal conjugate PCV 7 4 completed TREBA NEUSCHWANDER null, [facility] 03/01/2023 09:10:18 Tdap 7 completed TREBA NEUSCHWANDER null, [facility] 03/01/2023 09:10:18 varicella 6 completed TREBA NEUSCHWANDER null, [facility] 03/01/2023 09:10:18 varicella 8 completed TREBA NEUSCHWANDER null, [facility] 03/01/2023 09:10:18 pneumococcal, unspecified formulation 4 completed TREBA NEUSCHWANDER null, [facility] 03/01/2023 09:10:18 polio, unspecified formulation 4 completed TREBA NEUSCHWANDER null, [facility] 03/01/2023 09:10:18 polio, unspecified formulation 8 completed TREBA NEUSCHWANDER null, [facility] 03/01/2023 09:10:18 Hep B, adolescent or pediatric 4 completed TREBA NEUSCHWANDER null, [facility] 03/01/2023 09:10:18 Hep B, adolescent or pediatric 3 completed TREBA NEUSCHWANDER null, [facility] 03/01/2023 09:10:18 Hep A, ped/adol, 2 dose 7 completed TREBA NEUSCHWANDER null, [facility] 03/01/2023 09:10:18 Hib (PRP-T) 4 completed TREBA NEUSCHWANDER null, [facility] 03/01/2023 09:10:18 Hib (PRP-T) 5 completed TREBA NEUSCHWANDER null, [facility] 03/01/2023 09:10:18 Hib (PRP-T) 6 completed TREBA NEUSCHWANDER null, [facility] 03/01/2023 09:10:18 Hib (PRP-T) 4 completed TREBA NEUSCHWANDER null, [facility] 03/01/2023 09:10:18 meningococcal MCV4P 7 completed TREBA NEUSCHWANDER null, [facility] 03/01/2023 09:10:18 DTaP 4 completed TREBA NEUSCHWANDER null, [facility] 03/01/2023 09:10:18 DTaP 5 completed TREBA NEUSCHWANDER null, [facility] 03/01/2023 09:10:18 DTaP 6 completed TREBA NEUSCHWANDER null, [facility] 03/01/2023 09:10:19 DTaP 8 completed TREBA NEUSCHWANDER null, [facility] 03/01/2023 09:10:19 DTaP-Hep B-IPV 4 completed TREBA NEUSCHWANDER null, [facility] 03/01/2023 09:10:19 Past Encounters Encounter ID Performer Location Encounter Start Date Encounter Closed Date Diagnosis/Indication Diagnosis SNOMED-CT Code Diagnosis ICD10 Code Diagnosis Note [id number] CHANTELLE MARY [facility] ([facility]) [address] [place] [address] [id number] 5 02/11/2023 17:20:25 02/11/2023 18:50:23 detection examination 00527015 Z32.00 Positive urine test. Patient encouraged to establish with OBGYN for new OB appointmen t. Desires to establish with Dr. Owens. [id number] Umm Owens MD [facility] ([facility]) [address] [place] [address] [id number] 5 03/01/2023 09:00:57 03/01/2023 13:33:53 Multigravida [id number] Z34.81 Gestation period, 7 weeks 85917069 Z3A.01 Traumatic injury during 770134127 T14.90XA [id number] Umm Owens MD [facility] ([facility]) [address] [place] [address] [id number] 5 03/30/2023 09:47:47 03/30/2023 18:15:49 [id number] Umm Owens MD [facility] ([facility]) [address] [place] [address] [id number] 5 03/30/2023 10:46:07 03/30/2023 14:45:00 Multigravida [id number] Z34.81 Gestation period, 11 weeks 54789654 Z3A.11 Vaginal discharge 979187 006 N89.8 [id number] Umm Owens MD [facility] ([facility]) [address] [place] [address] [id number] 5 05/03/2023 14:54:02 05/03/2023 15:47:44 Multigravida 291520304 Z34.82 Gestation period, 16 weeks 94330944 Z3A.16 Anemia of 2734 2003 O99.555 [id number] Umm Owens MD [facility] ([facility]) [address] [place] [address] [id number] 5 05/31/2023 12:45:57 05/31/2023 18:12:44 Normal in multigravida [id number] 20730 Z34.82 [id number] Umm Owens MD [facility] ([facility]) [address] [place] [address] [id number] 5 05/31/2023 13:27:30 06/01/2023 00:18:08 Multigravida 665942841 Z34.82 Gestation period, 20 weeks 73708271 Z3A.20 [id number] Umm Owens MD [facility] ([facility]) [address] [place] [address] [id number] 5 05/31/2023 13:59:50 05/31/2023 14:45:20 Multigravida 290333244 Z34.82 Gestation period, 20 weeks 06985297 Z3A.20 [id number] Umm Owens MD [facility] ([facility]) [address] [place] [address] [id number] 5 06/28/2023 10:28:32 06/28/2023 11:08:47 Multigravida 222374944 Z34.82 Gestation period, 24 weeks 879726239 Z3A.24 [id number] Umm Owens MD [facility] ([facility]) [address] [place] [address] [id number] 5 07/19/2023 11:45:33 07/19/2023 14:20:01 Multigravida 603365345 Z34.82 Gestation period, 27 weeks 06245626 Z3A.27 Blood grou p 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 992481674 Z67.11 Order for RhoGam injection sent to [facility] infusion clinic 07/19/23 [id number] Umm Owens MD [facility] ([facility]) [address] [place] [address] [id number] 5 08/04/2023 12:36:18 08/09/2023 04:11:27 [id number] Umm Owens MD [facility] ([facility]) [address] [place] [address] [id number] 5 08/04/2023 10:15:08 08/05/2023 12:01:08 Multigravida [id number] Z34.82 [id number] Fran Estes MD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 Prior GBS-infected child false Hemoglobinopathy Or Carrier false Other Structural Defect false Recent Travel History Outside of Country false Mental Retardation/Autism false Delivery Information Delivery Date Delivery Type Labor Anesthesia Weeks Gestation Incision Type Labor Labor Length Hrs Delivered By Post Complications Tubal Sterilization Discharge Date Comments 4 Sponta neous [facility] 37.2 13 Fran Estes MD Discharge Information Feeding Method Contraceptive Method Maternal HG B and HCT Levels Ob Episode Information Episode Created Date Number of Fetuses Patient Bloodtype Patient rh Status Prepregnancy Weight lbs Domestic Partner Domestic Partner Phone Father Name Auto Specialty Services Manager Status 03/01/20 23 1 CLOSED Fetus Data First Name Last Name Admitted to NICU Weight (g) Sex Living Outcome Pediatric Complications Fetus ID Race Codes Race Delivery Type 2891.64 9 F Full Term 2602 VAGINAL Rashaad Calculation Initial Rashaad Date Initial Exam Date Initial Exam Provider Initial Ultrasound Date Last Menstrual Period Date Ultra Sound Weeks Gestation 0 Eighteen To Twenty Week Rashaad Update Ultra Sound Date Fundal Height At Umbil Quickening Date Ultra Sound Latest Weeks Gestation Final Rashaad Confirmed By Final Rashaad Confirmed Date Final Rashaad Date Ultra Sound Latest Days Gestation 0 0 Menstrual History Last Menstrual Date Menses Monthly On Bcp Conception Prior Menses Frequency Hcg Plus Date Menarche Onset Age Delivery Information Delivery Date Delivery Type Labor Anesthesia Weeks Gestation Incision Type Labor Labor Length Hrs Delivered By Post Complications Tubal Sterilization Discharge Date Comments 1 38 anemia- Alfreda Discharge Information Feeding Method Contraceptive Method Maternal HG B and HCT Levels Ob Episode Information Episode Created Date Number of Fetuses Patient Bloodtype Patient rh Status Prepregnancy Weight lbs Domestic Partner Domestic Partner Phone Father Name Auto Specialty Services Manager Status 01/10/20 24 1 CLOSED Fetus Data First Name Last Name Admitted to NICU Weight (g) Sex Living Outcome Pediatric Complications Fetus ID Race Codes Race Delivery Type [id number] Prematur e 5503 VAGINAL Rashaad Calculation Initial Rashaad Date Initial Exam Date Initial Exam Provider Initial Ultrasound Date Last Menstrual Period Date Ultra Sound Weeks Gestation 0 Eighteen To Twenty Week Rashaad Update Ultra Sound Date Fundal Height At Umbil Quickening Date Ultra Sound Latest Weeks Gestation Final Rashaad Confirmed By Final Rashaad Confirmed Date Final Rashaad Date Ultra Sound Latest Days Gestation 0 0 Menstrual History Last Menstrual Date Menses Monthly On Bcp Conception Prior Menses Frequency Hcg Plus Date Menarche Onset Age Delivery Information Delivery Date Delivery Type Labor Anesthesia Weeks Gestation Incision Type Labor Labor Length Hrs Delivered By Post Complications Tubal Sterilization Discharge Date Comments 4 Regional- idural 37.3 13 Aniya velazquez ivered by Dr. Estes Discharge Information Feeding Method Contraceptive Method Maternal HG B and HCT Levels
[2024-11-17 15:48] VITALS: BP 124/72; PULSE 100; RESP 15; TEMP 37.1; O2SAT 99; BMI 19.3
[2024-11-17 17:52] VITALS: BP 119/52; O2SAT 99
--- NOTE | 2024-11-17 17:55 | XRR_ITS ---
PROCEDURE INFORMATION: Exam: XR Left Hand Exam date and time: 11/17/2024 6:01 PM Age: 19 years old Clinical indication: Injury or trauma; Left; Middle finger and ring finger; Laceration to lt palm/ area of 3rd-4th digits TECHNIQUE: Imaging protocol: Radiologic exam of the left hand. Views: 3 or more views. COMPARISON: No relevant prior studies available. FINDINGS: Bones/joints: Normal. Soft tissues: Normal. XR/XR hand LT min 3V* [id number] IMPRESSION: No acute findings.
[2024-11-17] MEDS: tetanus-diphtheria tox (adult) 0.5 mL SDV IM (18:13)
--- NOTE | 2024-11-17 19:01 | ED_ITS ---
HPI - Wound/Laceration General: Chief Complaint: Wound/Laceration Stated Complaint: Finger lac on left hand Time Seen by Provider: 11/17/24 16:38 History of Present Illness: 19-year-old female patient presents to [facility] emergency department with a laceration to her left middle finger patient states she cut it with a knife while opening something. Patient presents with bleeding controlled range of motion intact neurovascularly intact patient denies any other trauma or injury. Patient has patient's tetanus is not up-to-date Related Data Previous Rx's ?Medication ?Instructions ?Recorded ferrous sulfate 325 mg (65 mg 325 mg PO BID #60 tabs 1 07/12/20 iron) tablet,delayed release Allergies Allergy/AdvReac Type Severity Reaction Status Date / Time No Known Allergies Allergy Verified 09/28/23 01:29 Review of Systems General: Reports: 10 or more systems reviewed and unremarkable except in HPI and below [facility] ED PFSH: Medical History (Updated 10/01/23 @ 00:02 by RAMY Pagan) Anemia affecting Gestational diabetes mellitus (GDM) affecting Social History (Updated 12/23/19 @ 16:45 by Jael Christianson LPN) Smoking and tobacco/nicotine status: never used tobacco/nicotine Alcohol intake: never Substance/Drug Use: never Physical Exam Const: COMMON NORMALS: no acute distress, average body habitus, patient oriented x3, no limitations and healthy appearing Resp: COMMON NORMALS: normal respiratory effort Cardio: COMMON NORMALS: regular rate RATE: regular rate Extremity: GENERAL: Yes normal exam except as noted Neuro: COMMON NORMALS: patient oriented x3 Skin: NARRATIVE SKIN EXAM: 1 cm linear laceration to the palmar maryjo e of the left middle digit Procedures Laceration Laceration 1: Site: hand Side (If applicable): left Size (cm): 2 Description: linear Local Anesthetic: lidocaine 1% Amount of anesthesia used (mL): 2 Pre-repair: wound explored and irrigated extensively Skin layer closed with: nylon Size (cm): 5-0 Number of sutures: 4 Technique: simple, interrupted Course Vital Signs: Vital signs: Vital Signs Temperature 98.7 F 11/17/24 15:48 Pulse Rate 100 11/17/24 15:48 Respiratory Rate 15 11/17/24 15:48 Blood Pressure 119/52 11/17/24 17:52 Pulse Oximetry 99 11/17/24 17:52 Oxygen Delivery Me thod Room Air 11/17/24 15:48 MDM - Wound/Laceration Medical Decision Making Patient is well-appearing nontoxic in no acute distress. 19-year-old female patient presents to the emergency department with a laceration to her left middle finger patient states she cut it with a knife while opening something. Patient presents with bleeding controlled range of motion intact neurovascularly intact patient denies any other trauma or injury. Patient has patient's tetanus is not up-to-date please see procedure note for laceration repair. Tetanus was updated patient is neurovascularly intact distally pre and postprocedure I did review wound care instructions with patient as well as follow-up and return precautions patient is medically cleared and appropriate for discharge XR interpretation done by ED provider, pending radiology final review Discharge Plan Discharge Condition: Stable Prescriptions: No Action ferrous sulfate 325 mg (65 mg iron) Tablet,Delayed Release (Dr/Ec) 325 mg PO BID Qty: 60 0RF Referrals: Fran Estes MD [Primary Care Provider, Family Practice] Print Language: South [place]ese Coding Level of Care Code ED International Trade Manager for Isaiah Cardozo
[2024-11-17 19:21] VITALS: BP 113/70; PULSE 74; RESP 16; O2SAT 98
== END 2024-11-17 19:21 | disposition home or self-care (01) ==
PROVIDERS: Emergency Provider Registered Nurse; PCP Family Medicine
DX: S61.213A Laceration without foreign body of left middle finger without damage to nail, initial encounter (principal); W26.0XXA Contact with knife, initial encounter
CPT/HCPCS: 12001; 73130; 90471; 90714; 99283; J9999

== ENCOUNTER 2024-11-27 20:00 | Emergency (ER) | payer BC, MEDICAID, SELFPAY ==
[2024-11-27 20:04] VITALS: BP 109/78; PULSE 91; RESP 16; TEMP 36.8; O2SAT 100; BMI 16.9
--- OUTSIDE RECORDS SUMMARY | 2024-11-27 20:05 | XMS_ITS | Data Portability ---
Author Organization COLETTE Pauly kinney [facility] Address [address] [place] [address] Assessment Encounter Date Assessment Date Assessment LastModified [...] Lab HbA1c (hemoglobin A1c), blood 2024 025 [employer] 173 [facility] ([facility], [address] [place], [address], 16:05:15 lipid panel, serum 2024 025 [email or web address] 173 [facility] ([place]), [address] [place], [address], 5 16:05:15 microalbumi n/creatinin e, mass ratio, urine 2024 025 BERNY [facility] ([facility], [address] [place], [address], 5 20:10:22 CMP, serum or plasma 2024 025 [email or web address] 173 [facility] ([place]), [address] [place], [address], 5 16:05:15 CBC w/ auto diff 2024 025 [facility] 173 [facility] ([place]), [address] [place], [address], 5 16:05:15 urinalysis, complete 2024 [facility]25 [email or web address] ([place] [address] [place], [address], 5 16:05:15 TSH + free T4, serum 2024 025 [facility] 173 [facility] ([place]), [address] [place], [address], 5 16:05:15 unlisted lab - [id number]/ insulin Ab [facility] - [facility] 2024 025 CADOGAN [facility] ([place]), [address] [place], [address], 5 04:15:41 Referral None recorded. Procedures None recorded. Surgeries None recorded. Imaging None recorded. Medication Orders glucose 4 gram chewable tablet [address] [facility], [address] [place], [address], 5 13:13:56 Baqsimi 3 mg/actuatio n nasal spray [address] [facility], [address] [place], [address], 5 13:13:56 Humalog KwikPen (U-100) Insulin 100 unit/mL subcutaneou s 2024 025 [email or web address] [facility], [address] [place], [address], 13:17:20 Lantus Solostar U-100 Insulin 100 unit/mL (3 mL) subcutaneou s pen 2024 025 [email or web address] [facility] #4506, [address] [place], [address], 13:17:20 Patient Targets Encounter Date Encounter Id Patient Goals Patient Target Last Modified By Organization Details Last Modified Time 08/08/2024 [id number] halfway goal of Exercise level Moderate Not available Not available Not available director long term care goal of Hemoglobin A1C 6.5% or less Not available Not available Not available director long term care goal of Glucose, 2 Hour Postprandial 140mg/dL or less Not available Not available Not available halfway goal of Fasting Glucose 110mg/dL or less Not available Not available Not available Patient Instructions Encounter Date Encounter Id Patient Instructions Last Modified By Organization Details Last Modified Time 08/08/2024 [id number] During the patient's visit for diabetes, we [...] as applicable. Not available 08/08/2024 13:18:14 08/08/2024 [id number] During the patient's visit for diabetes, we discussed the goal of improvement and stabilization of the diabetes with treatment compliance and continued efforts at improvement of diet and lifestyle. We also discussed long-term goal of preventing complications of diabetes with regular followups and monitoring and other preventative measures such as diabetic foot examination and diabetic eye examination. [email or web address] Not available 08/07/2024 17:45:18 Reason for Referral None Reported. Results Created Date Observation Date Name Description Value Unit Range Abnormal Flag Note LastModifiedBy Organization Detail LastModifiedTime 08/09/19 25 08/09/2024 CBC WITH DIFFE RENTI AL/PL ATELE T WBC 5.5 x10e3 /uL 3.4-10 .8 normal Not Available [facility] ([facility]) [address] [place], [address], 08/09/2024 06:47:20 08/09/19 25 08/09/2024 CBC WITH DIFFE RENTI AL/PL ATELE T RBC 4.62 x10e6 /uL 3.77-5 .28 normal Not Available [facility] ([facility]) [address] [place], [address], 08/09/2024 06:47:20 08/09/19 25 08/09/2024 CBC WITH DIFFE RENTI AL/PL ATELE T hemoglobin 9.4 g/dL 11.1-1 5.9 below low normal Not Available [facility] ([facility]) [address] [place], [address], 08/09/2024 06:47:20 08/09/19 25 08/09/2024 CBC WITH DIFFE RENTI AL/PL ATELE T hematocrit 34.1 % 34.0-4 6.6 normal Not Available [facility] ([facility]) [address] [place], [address], 08/09/2024 06:47:20 08/09/19 25 08/09/2024 CBC WITH DIFFE RENTI AL/PL ATELE T MCV 74 fL 79-97 below low normal Not Available [facility] ([facility]) [address] [place], [address], 08/09/2024 06:47:20 08/09/19 25 08/09/2024 CBC WITH DIFFE RENTI AL/PL ATELE T MCH 20.3 pg 26.6-3 3.0 below low normal Not Available [facility] ([facility]) [address] [place], [address], 08/09/2024 06:47:20 08/09/19 25 08/09/2024 CBC WITH DIFFE RENTI AL/PL ATELE T MCHC 27.6 g/dL 31.5-3 5.7 below low normal Not Available [facility] ([facility]) [address] [place], [address], 08/09/2024 06:47:20 08/09/19 25 08/09/2024 CBC WITH DIFFE RENTI AL/PL ATELE T RDW 16.3 % 11.7-1 5.4 above high normal Not Available [facility] ([facility]) [address] [place], [address], 08/09/2024 06:47:20 08/09/19 25 08/09/2024 CBC WITH DIFFE RENTI AL/PL ATELE T platelets 379 x10e3 /uL 150-45 0 normal Not Available [facility] ([facility]) [address] [place], [address], 08/09/2024 06:47:20 08/09/19 25 08/09/2024 CBC WITH DIFFE RENTI AL/PL ATELE T neutrophils 64 % not estab. normal Not Available [facility] ([facility]) [address] [place], [address], 08/09/2024 06:47:20 08/09/19 25 08/09/2024 CBC WITH DIFFE RENTI AL/PL ATELE T lymphs 27 % not estab. normal Not Available [facility] ([facility]) [address] [place], [address], 08/09/2024 06:47:20 08/09/19 25 08/09/2024 CBC WITH DIFFE RENTI AL/PL ATELE T monocytes 6 % not estab. normal Not Available [facility] ([facility]) [address] [place], [address], 08/09/2024 06:47:20 08/09/19 25 08/09/2024 CBC WITH DIFFE RENTI AL/PL ATELE T eos 2 % not estab. normal Not Available [facility] ([facility]) [address] [place], [address], 08/09/2024 06:47:20 08/09/19 25 08/09/2024 CBC WITH DIFFE RENTI AL/PL ATELE T basos 1 % not estab. normal Not Available [facility] ([facility]) [address] [place], [address], 08/09/2024 06:47:20 08/09/19 25 08/09/2024 CBC WITH DIFFE RENTI AL/PL ATELE T immature cells INSTRUMENT REPAIR TECHNICIAN Not Available [facility] ([facility]) [address] [place], [address], 08/09/2024 06:47:20 08/09/19 25 08/09/2024 CBC WITH DIFFE RENTI AL/PL ATELE T neutrophils (absolute) 3.5 x10e3 /uL 1.4-7. 0 normal Not Available [facility] ([facility]) [address] [place], [address], 08/09/2024 06:47:20 08/09/19 25 08/09/2024 CBC WITH DIFFE RENTI AL/PL ATELE T lymphs (absolute) 1.5 x10e3 /uL 0.7-3. 1 normal Not Available [facility] ([facility]) [address] [place], [address], 08/09/2024 06:47:20 08/09/19 25 08/09/2024 CBC WITH DIFFE RENTI AL/PL ATELE T monocytes(ab solute) 0.3 x10e3 /uL 0.1-0. 9 normal Not Available [facility] ([facility]) [address] [place], [address], 08/09/2024 06:47:20 08/09/19 25 08/09/2024 CBC WITH DIFFE RENTI AL/PL ATELE T eos (absolute) 0.1 x10e3 /uL 0.0-0. 4 normal Not Available [facility] ([facility]) [address] [facility], [place], [address], 08/09/2024 06:47:20 08/09/19 25 08/09/2024 CBC WITH DIFFE RENTI AL/PL ATELE T baso (absolute) 0.1 x10e3 /uL 0.0-0. 2 normal Not Available [facility] ([facility]) [address] [facility], [place], [address], 08/09/2024 06:47:20 08/09/19 25 08/09/2024 CBC WITH DIFFE RENTI AL/PL ATELE T immature granulocytes 0 % not estab. Not Available [facility] ([facility]) [address] [facility], [place], [address], 08/09/2024 06:47:20 08/09/19 25 08/09/2024 CBC WITH DIFFE RENTI AL/PL ATELE T immature grans (abs) 0.0 x10e3 /uL 0.0-0. 1 Not Available [facility] ([facility]) [address] [place], [address], 08/09/2024 06:47:20 08/09/19 25 08/09/2024 CBC WITH DIFFE RENTI AL/PL ATELE T NRBC INSTRUMENT REPAIR TECHNICIAN Not Available [facility] ([facility]) [address] [place], [address], 08/09/2024 06:47:20 08/09/19 25 08/09/2024 CBC WITH DIFFE RENTI AL/PL ATELE T hematology comments: INSTRUMENT REPAIR TECHNICIAN Not Available [facility] ([facility]) [address] [place], [address], 08/09/2024 06:47:20 08/09/19 25 08/09/2024 URINA LYSIS , COMPL ETE specific gravity 1.024 1.005- 1.030 normal Not Available [facility] ([facility]) [address] [place], [address], 08/09/2024 06:47:21 08/09/19 25 08/09/2024 URINA LYSIS , COMPL ETE pH 5.5 5.0-7. 5 normal Not Available [facility] ([facility]) [address] [place], [address], 08/09/2024 06:47:21 08/09/19 25 08/09/2024 URINA LYSIS , COMPL ETE urine-color YELLOW yellow Not Available [facility] ([facility]) [address] [place], [address], 08/09/2024 06:47:21 08/09/19 25 08/09/2024 URINA LYSIS , COMPL ETE appearance CLEAR clear Not Available [facility] ([facility]) [address] [place], [address], 08/09/2024 06:47:21 08/09/19 25 08/09/2024 URINA LYSIS , COMPL ETE WBC esterase NEGATI VE negati ve Not Available [facility] ([facility]) [address] [place], [address], 08/09/2024 06:47:21 08/09/19 25 08/09/2024 URINA LYSIS , COMPL ETE protein TRACE negati ve/tra ce Not Available [facility] ([facility]) [address] [place], [address], 08/09/2024 06:47:21 08/09/19 25 08/09/2024 URINA LYSIS , COMPL ETE glucose 3+ negati ve abnormal Not Available [facility] ([facility]) [address] [place], [address], 08/09/2024 06:47:21 08/09/19 25 08/09/2024 URINA LYSIS , COMPL ETE ketones TRACE negati ve abnormal Not Available [facility] ([facility]) [address] [facility], [place], [address], 08/09/2024 06:47:21 08/09/19 25 08/09/2024 URINA LYSIS , COMPL ETE occult blood NEGATI VE negati ve Not Available [facility] ([facility]) [address] [facility], [place], [address], 08/09/2024 06:47:21 08/09/19 25 08/09/2024 URINA LYSIS , COMPL ETE bilirubin NEGATI VE negati ve Not Available [facility] ([facility]) [address] [facility], [place], [address], 08/09/2024 06:47:21 08/09/19 25 08/09/2024 URINA LYSIS , COMPL ETE urobilinogen ,semi-qn 0.2 mg/dL 0.2-1. 0 normal Not Available [facility] ([facility]) [address] [facility], [place], [address], 08/09/2024 06:47:21 08/09/19 25 08/09/2024 URINA LYSIS , COMPL ETE nitrite, urine NEGATI VE negati ve Not Available [facility] ([facility]) [address] [place], [address], 08/09/2024 06:47:21 08/09/19 25 08/09/2024 URINA LYSIS , COMPL ETE microscopic examination COMMEN T Marissa ott ws if indic ated. Not Available [facility] ([facility]) [address] [place], [address], 08/09/2024 06:47:21 08/09/19 25 08/09/2024 URINA LYSIS , COMPL ETE microscopic examination SEE BELOW: Micro scopi c was indic ated and was perfo rmed. Not Available [facility] ([facility]) [address] [place], [address], 08/09/2024 06:47:21 08/09/19 25 08/09/2024 URINA LYSIS , COMPL ETE WBC NONE SEEN /hpf 0 - 5 Not Available [facility] ([facility]) [address] [facility], [place], [address], 08/09/2024 06:47:21 08/09/19 25 08/09/2024 URINA LYSIS , COMPL ETE RBC NONE SEEN /hpf 0 - 2 Not Available [facility] ([facility]) [address] [facility], [place], [address], 08/09/2024 06:47:21 08/09/19 25 08/09/2024 URINA LYSIS , COMPL ETE epithelial cells (non renal) 0-10 /hpf 0 - 10 Not Available [facility] ([facility]) [address] [facility], [place], [address], 08/09/2024 06:47:21 08/09/19 25 08/09/2024 URINA LYSIS , COMPL ETE epithelial cells (renal) INSTRUMENT REPAIR TECHNICIAN Not Available [facility] ([facility]) [address] [facility], [place], [address], 08/09/2024 06:47:21 08/09/19 25 08/09/2024 URINA LYSIS , COMPL ETE casts NONE SEEN /lpf none seen Not Available [facility] ([facility]) [address] [place], [address], 08/09/2024 06:47:21 08/09/19 25 08/09/2024 URINA LYSIS , COMPL ETE cast type INSTRUMENT REPAIR TECHNICIAN Not Available [facility] ([facility]) [address] [place], [address], 08/09/2024 06:47:21 08/09/19 25 08/09/2024 URINA LYSIS , COMPL ETE crystals INSTRUMENT REPAIR TECHNICIAN Not Available [facility] ([facility]) [address] [facility], [place], [address], 08/09/2024 06:47:21 08/09/19 25 08/09/2024 URINA LYSIS , COMPL ETE crystal type INSTRUMENT REPAIR TECHNICIAN Not Available [facility] ([facility]) [address] [facility], [place], [address], 08/09/2024 06:47:21 08/09/1908/09/2024 URINA LYSIS , COMPL ETE mucus threads INSTRUMENT REPAIR TECHNICIAN Not Available [facility] ([facility]) [address] [facility], [place], [address], 08/09/2024 06:47:21 08/09/1908/09/2024 URINA LYSIS , COMPL ETE bacteria NONE SEEN none seen/f ew Not Available [facility] ([facility]) [address] [facility], [place], [address], 08/09/2024 06:47:21 08/09/1908/09/2024 URINA LYSIS , COMPL ETE yeast INSTRUMENT REPAIR TECHNICIAN Not Available [facility] ([facility]) [address] [facility], [place], [address], 08/09/2024 06:47:21 08/09/1908/09/2024 URINA LYSIS , COMPL ETE trichomonas INSTRUMENT REPAIR TECHNICIAN Not Available [facility] ([facility]) [address] [facility], [place], [address], 08/09/2024 06:47:21 08/09/19 25 08/09/2024 URINA LYSIS , COMPL ETE comment INSTRUMENT REPAIR TECHNICIAN Not Available [facility] ([facility]) [address] [facility], [place], [address], 08/09/2024 06:47:21 08/09/19 25 08/09/2024 TSH+F REE T4 TSH 0.595 uIU/m L 0.450- 4.500 normal Not Available [facility] ([facility]) [address] [place], [address], 08/09/2024 07:42:31 08/09/19 25 08/09/2024 TSH+F REE T4 T4,free(dire ct) 1.32 NG/dL 0.82-1 .77 normal Not Available [facility] ([facility]) [address] [place], [address], 08/09/2024 07:42:31 08/09/19 25 08/09/2024 LIPID PANEL cholesterol, total 147 mg/dL 100-19 9 normal Not Available [facility] ([facility]) [address] [place], [address], 08/09/2024 07:42:32 08/09/19 25 08/09/2024 LIPID PANEL triglyceride s 40 mg/dL 0-149 normal Not Available [facility] ([facility]) [address] [place], [address], 08/09/2024 07:42:32 08/09/19 25 08/09/2024 LIPID PANEL HDL cholesterol 51 mg/dL >39 normal Not Available [facility] ([facility]) [address] [place], [address], 08/09/2024 07:42:32 08/09/19 25 08/09/2024 LIPID PANEL VLDL cholesterol kiran 9 mg/dL 5-40 Not Available [facility] ([facility]) [address] [place], [address], 08/09/2024 07:42:32 08/09/19 25 08/09/2024 LIPID PANEL LDL chol calc ([facility]) 87 mg/dL 0-99 Not Available [facility] ([facility]) [address] [place], [address], 08/09/2024 07:42:32 08/09/19 25 08/09/2024 LIPID PANEL LDL calc comment: INSTRUMENT REPAIR TECHNICIAN Not Available [facility] ([facility]) [address] [place], [address], 08/09/2024 07:42:32 08/09/19 25 08/09/2024 HEMOG LOBIN A1C hemoglobin A1C 8.9 % 4.8-5. 6 above high normal Predi abete s: 5.7 - 6.4 Diabe leighann: >6.4 Glyce [place] contr ol for adult s with diabe leighann: <7.0 Not Available [facility] ([facility]) [address] [place], [address], 08/09/2024 08:21:04 08/09/19 25 08/09/2024 COMP. METAB OLIC PANEL (14) glucose 191 mg/dL 70-99 above high normal Not Available [facility] ([facility]) [address] [place], [address], 08/09/2024 09:13:10 08/09/19 25 08/09/2024 COMP. METAB OLIC PANEL (14) BUN 7 mg/dL 6-20 normal Not Available [facility] ([facility]) [address] [place], [address], 08/09/2024 09:13:10 08/09/19 25 08/09/2024 COMP. METAB OLIC PANEL (14) creatinine 0.52 mg/dL 0.57-1 .00 below low normal Not Available [facility] ([facility]) [address] [place], [address], 08/09/2024 09:13:10 08/09/19 25 08/09/2024 COMP. METAB OLIC PANEL (14) eGFR 135 mL/mi n/1.7 3 >59 normal Not Available [facility] ([facility]) [address] [place], [address], 08/09/2024 09:13:10 08/09/19 25 08/09/2024 COMP. METAB OLIC PANEL (14) BUN/creatini ne ratio 13 9-23 normal Not Available [facility] ([facility]) [address] [facility], [place], [address], 08/09/2024 09:13:10 08/09/19 25 08/09/2024 COMP. METAB OLIC PANEL (14) sodium 138 mmol/ L 134-14 4 normal Not Available [facility] ([facility]) [address] [facility], [place], [address], 08/09/2024 09:13:10 08/09/19 25 08/09/2024 COMP. METAB OLIC PANEL (14) potassium 4.4 mmol/ L 3.5-5. 2 normal Not Available [facility] ([facility]) [address] [facility], [place], [address], 08/09/2024 09:13:10 08/09/19 25 08/09/2024 COMP. METAB OLIC PANEL (14) chloride 103 mmol/ L 96-106 normal Not Available [facility] ([facility]) [address] [facility], [place], [address], 08/09/2024 09:13:10 08/09/19 25 08/09/2024 COMP. METAB OLIC PANEL (14) carbon dioxide, total 21 mmol/ L 20-29 normal Not Available [facility] ([facility]) [address] [facility], [place], [address], 08/09/2024 09:13:10 08/09/19 25 08/09/2024 COMP. METAB OLIC PANEL (14) calcium 9.2 mg/dL 8.7-10 .2 normal Not Available [facility] ([facility]) [address] [facility], [place], [address], 08/09/2024 09:13:10 08/09/19 25 08/09/2024 COMP. METAB OLIC PANEL (14) protein, total 7.2 g/dL 6.0-8. 5 normal Not Available [facility] ([facility]) [address] [facility] [place], [address], 08/09/2024 09:13:10 08/09/19 25 08/09/2024 COMP. METAB OLIC PANEL (14) albumin 4.9 g/dL 4.0-5. 0 normal Not Available [facility] ([facility]) [address] [facility] [place], [address], 08/09/2024 09:13:10 08/09/19 25 08/09/2024 COMP. METAB OLIC PANEL (14) globulin, total 2.3 g/dL 1.5-4. 5 Not Available [facility] ([facility]) [address] [facility] [place], [address], 08/09/2024 09:13:10 08/09/19 25 08/09/2024 COMP. METAB OLIC PANEL (14) bilirubin, total 0.3 mg/dL 0.0-1. 2 normal Not Available [facility] ([facility]) [address] [facility] [place], [address], 08/09/2024 09:13:10 08/09/19 25 08/09/2024 COMP. METAB OLIC PANEL (14) alkaline phosphatase 66 IU/L 44-121 normal Not Available [facility] ([facility]) [address] [facility] [place], [address], 08/09/2024 09:13:10 08/09/19 25 08/09/2024 COMP. METAB OLIC PANEL (14) AST (SGOT) 17 IU/L 0-40 normal Not Available [facility] ([facility]) [address] [facility] [place], [address], 08/09/2024 09:13:10 08/09/19 25 08/09/2024 COMP. METAB OLIC PANEL (14) ALT (SGPT) 15 IU/L 0-32 normal Not Available [facility] ([facility]) [address] [place], [address], 08/09/2024 09:13:10 08/09/19 25 08/09/2024 ALBUM IN/CR EAT RATIO , RANDO M UR creatinine, urine 112.8 mg/dL not estab. normal Not Available [facility] ([facility]) [address] [place], [address], 08/09/2024 20:10:22 08/09/19 25 08/09/2024 ALBUM IN/CR EAT RATIO , RANDO M UR albumin, urine 38.2 ug/mL not estab. Not Available [facility] ([facility]) [address] [place], [address], 08/09/2024 20:10:22 08/09/19 25 08/09/2024 ALBUM IN/CR EAT RATIO , RANDO M UR alb/creat ratio 34 mg/g_ creat 0-29 above high normal Deena l: 0 - 29 Moder ately incre ased: 30 - 300 Sever alexander incre ased: >300 Not Available [facility] ([facility]) [address] [place], [address], 08/09/2024 20:10:22 08/09/19 25 08/17/2024 JUANITA/I CA512 /INSU JOSEFINA AB H.S. anti juanita 65 antibodies >120 U/mL above high normal Refer ence Range : <5.0 Negat axel > or = 5.0 Posit axel Not Available [facility] [address] [facility], [place], [address], 08/22/2024 04:15:41 08/09/19 25 08/19/2024 JUANITA/I CA512 [...] axel Not Available [facility] [address] [place], [address], 08/22/2024 04:15:41 08/09/1908/22/2024 JUANITA/I CA512 /INSU JOSEFINA AB H.S. ia-2 autoantibodi es 93 U/mL above high normal Refer ence Range : <7.5 Negat axel > or = 7.5 Posit axel Not Available [facility] [address] [place], [address], 08/22/2024 04:15:41 Result Notes None recorded. Problems Name Problem SNOMED Code Status Onset Date Resolution Date Notes Provider Name and Address Organization Details Recorded Time Diabetes mellitus 63402526 Active 025 Mi Page null, [place] - [facility] 10:45:44 Anemia 095146343 Active 025 Mi Page null, [place] - [facility] 10:45:51 Anxiety 52266666 Active 025 Mi Page null, [place] - [facility] 10:45:57 Type 1 diabetes mellitus 89306041 Active 025 Bay Page MD [address] [place] [address], [id number] , [facility] - [facility] 5 10:57:10 Problem Notes None recorded. Medical [...] Last Updated DateTime 170.18 cm 19.5 kg/m2 18887.8 9 g 82 /min 100 % 100 % 18 /min 98.6 [degF] 123/81 mm[Hg] Mi Page [facility] 10:47:37 Social History Question Answer Notes LastModified by Organizat ion Details LastModified Time Tobacco Smoking Status Never Smoker Not Available [employer] 08/08/2024 10:25:23 Do You Have An Advance Directive? No [email or web address] Information n ot available 08/08/2024 What Is Your Level Of Caffeine Consumption? Occasional [email or web address] Information not available 08/08/2024 Risk Stratification Score (AAFP) 1 [id number] Information not available 08/08/2024 In The Last [...] Did You Ever Eat Less Than You [place] You Should Because There Wasn t Enough [...] Of Your Most Recent Tobacco Screening? 08/08/2024 [email or web address] Information not available 08/08/2024 Do You Have [...] Time Father No current problems or disability [email or web address] Not available 0 08/08/2024 10:46:18 Mother No current problems or disability [email or web address] Not available 0 08/08/2024 10:46:18 Medical History Condition Response diabetes mellitus Y Gynecological HistoryNo gynecological history recorded. Obstetrics History GPAL:G 0 P 0 0 0 0 Past Encounters Encounter ID Performer Location Encounter Start Date Encounter Closed Date Diagnosis/Indication Diagnosis SNOMED-CT Code Diagnosis ICD10 Code Diagnosis Note [id number] Bay Page MD [facility] [address] [place] [address] 08/08/2024 10:22:58 08/08/2024 12:28:30 Type 1 diabetes mellitus [id number] E10.9 to pharm [id number] Bay Page MD [facility] [address] [place] [address] 08/08/2024 12:18:39 08/08/2024 13:27:48 Diabetes mellitus [id number] E13.9 Diagnosis of type 1 or 2 diabetes has not been confirmed. Analyzed Dexcom G7 CGM reports. Patient is time in range only 18%. No hypoglycem ia episodes noted. Discussed glucose variabilit y and the possible complicati ons of uncontroll ed diabetes, including but not limited to, CVA/TN/bli ndness/amp utations, etc. Majority of visit spent [...] Medication Adherence:greater than 90% Bay Page MD [address] [place] [address], [place], [address], [facility] - [place] 08/08/2024 11:58:18 08/08/2024 text/html [facility] management of DM and concomitant disease states. Patient diagnosed with possible type 1 diabetes with the of her third child. No antibody testing has been done previously. Patient was seen immediately after PCP appointment where juanita 65, IAA, and C-peptide have been ordered. Patient is a resident of [place] and is applying for [place]. She currently has no insurance. She reports adherence to medications as noted below. She denies adverse effects to medications. When patient obtains [place] Medicaid she will find a PCP in [place] until then she will work with PCP [...] Dexcom Clarity David marinelli NormanDate of : [id number] at: Aug 08, 2024 12:06 PM CDTReporting period: TueJul 26, 2024 - TueAug 08, 2024 Glucose DetailsAverage glucose: 250 mg/dLGMI: 9.3%Standard deviation: 75 mg/dLCoefficient of Variation: 29.9% Time in RangeVery High: 47%High: 35%In Range: 18%Low: 0%Very Low: 0%Target [id number] mg/dL Sensor usageDays with data: 01/27Time active: [...] have dental insurance Radha Rodriguez, PHARM-D [address] [place] [address], [place], [address], [place] - [place] [facility] [place] 08/08/2024 13:18:43 OBGyn Episode No OBEpisode recorded.
--- OUTSIDE RECORDS SUMMARY | 2024-11-27 20:06 | XMS_ITS | Data Portability ---
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 . [email or web address] Not available 03/26/2024 17:13:58 Plan of Treatment Reminders Order Date Submit Date Provider Last Modified By Organization Details Last Modified Time Details Appointments None recorded. Lab hemoglobin A1C/hemoglo bin total, QN, blood 2023 024 [facility], [address], [facility], [place], [address], 13:02:23 CMP, serum or plasma 2023 024 [facility], [address] [facility] [address], [facility] 1, [place], [address], 13:23:09 CBC 2023 024 [facility], [address], [address], [place], [address], 12:57:45 thyrotropin , QN, serum or plasma 2023 024 [facility], [address], [address], [place], [address], 4 14:00:47 pap, IG + CT/NG + reflex HPV 2023 024 [email or web address], [address], [address], [place], [address], 4 08:50:27 HbA1c (hemoglobin A1c), blood 2023 024 [facility] [address] [facility], [place], [address], 4 10:06:03 Referral endocrinolo gy referral 2024 025 [email or web address] 4 Farhat Mares MD, [address] [facility], [place], [address], 5 13:16:21 Procedures None recorded. Surgeries None recorded. Imaging None recorded. Medication Orders Lexapro 20 mg tablet 2023 024 [id number], [address], [facility] 2, [place], [address], 4 12:31:56 insulin glargine (U-100) 100 unit/mL (3 mL) subcutaneou s pen 2023 024 dcrase [id number], [address], [facility], [place], [address], 4 09:46:17 insulin lispro (U-100) 100 unit/mL subcutaneou s pen 2023 024 [id number], [address], [address], [place], [address], 4 12:09:36 Lexapro 10 mg tablet 2023 024 [facility] #[id number], [address], [address], 11:30:43 Patient TargetsNo targets recorded. Patient InstructionsNo instructions recorded. Reason for Referral Endocrinology Referral for U ncontrolled type 1 diabetes mellitus Referring Physician: Fran Estes, Family Medicine, Encounter Date: 06/29/2024 Results Created Date Observation Date Name Description Value Unit Range Abnormal Flag Note LastModifiedBy Organization Detail LastModifiedTime 02/17/2002/17/2024 HbA1c (hemo globi n A1c), blood HbA1c 6.1 Not Available [facility] [address] [place], [address], 02/17/2024 09:43:24 03/26/20 24 04/02/2024 THINP REP TIS PAP (REFL ) HPV MRNA E6/E7 clinical information: normal Deena l exam Not Available [address] [address] [place], [address], 04/02/2024 20:12:59 03/26/20 24 04/02/2024 THINP REP TIS PAP (REFL ) HPV MRNA E6/E7 LMP: normal NONE GIVEN Not Available [address] [address] [place], [address], 04/02/2024 20:12:59 03/26/20 24 04/02/2024 THINP REP TIS PAP (REFL ) HPV MRNA E6/E7 prev. Pap: normal NONE GIVEN Not Available [facility] [address] [address] [place], [address], 04/02/2024 20:12:59 03/26/20 24 04/02/2024 THINP REP TIS PAP (REFL ) HPV MRNA E6/E7 prev. BX: normal NONE GIVEN Not Available [address] [address] [place], [address], 04/02/2024 20:12:59 03/26/20 24 04/02/2024 THINP REP TIS PAP (REFL ) HPV MRNA E6/E7 source: normal Cervi x, Endoc ervix Not Available [address], [address], 04/02/2024 20:12:59 03/26/20 24 04/02/2024 THINP REP TIS PAP (REFL ) HPV MRNA E6/E7 statement of adequacy: normal Satis facto ry for evalu ation . Endoc ervic al/tr ansfo rmati on zone compo nent prese nt. Age and/o r menst rual statu s not provi ded Not Available [address], [address], 04/02/2024 20:12:59 03/26/20 24 04/02/2024 THINP REP TIS PAP (REFL ) HPV MRNA E6/E7 interpretati on/result: normal Cytol ogy Resul ts: Negat axel for intra epith elial lesio n or kellie jaramillo . Not Available [address] [address] [place], [address], 04/02/2024 20:12:59 03/26/20 24 04/02/2024 THINP REP TIS PAP (REFL ) HPV MRNA E6/E7 comment: normal This Pap test has been evalu ated with compu ter ki carina techn ology . Not Available [address] [address] [place], [address], 04/02/2024 20:12:59 03/26/20 24 04/02/2024 THINP REP TIS PAP (REFL ) HPV MRNA E6/E7 cytotechnolo gist: normal MVB, CT( CP) CT Scree tashia Locat ion: [address] [place] [place] [address] Not Available [address] [address] [place], [address], 04/02/2024 20:12:59 03/26/20 24 04/02/2024 THINP REP [...] clini kiran infor matio n. Not Available [facility] [address] [place], [address], 04/02/2024 20:12:59 05/11/20 24 05/11/2024 CBC WBC 5.0 x10 4.0-10 .5 Not Available [facility] [address] [facility] 1, [place], [address], 05/11/2024 12:57:45 05/11/20 24 05/11/2024 CBC RBC 4.32 x10 3.50-5 .50 Not Available [facility] [address] [facility] 1, [place], [address], 05/11/2024 12:57:45 05/11/20 24 05/11/2024 CBC HGB 8.9 g/dL 12.0-1 6.0 low Not Available [facility] [address] [facility] 1, [place], [address], 05/11/2024 12:57:45 05/11/20 24 05/11/2024 CBC HCT 28.4 % 37.0-4 7.0 low Not Available [facility] [address] [facility], [place], [address], 05/11/2024 12:57:45 05/11/20 24 05/11/2024 CBC MCV 65.7 fL 80.0-9 9.9 low Not Available [facility] [address] [facility] 1, [place], [address], 05/11/2024 12:57:45 05/11/20 24 05/11/2024 CBC MCH 20.6 pg 27.0-3 2.0 low Not Available [facility] [address] [facility] [address] [facility] 1, [place], [address], 05/11/2024 12:57:45 05/11/20 24 05/11/2024 CBC MCHC 31.3 g/dL 32.0-3 6.0 low Not Available [facility] [address] [facility] 1, [place], [address], 05/11/2024 12:57:45 05/11/20 24 05/11/2024 CBC RDW 19.0 % 11.5-1 4.5 high Not Available [facility] [address] [facility] [address] [facility] 1, [place], [address], 05/11/2024 12:57:45 05/11/20 24 05/11/2024 CBC plt 337.9 x10 140.0- 451.0 Not Available [facility] [address] [facility] 1, [place], [address], 05/11/2024 12:57:45 05/11/20 24 05/11/2024 CBC lymphocytes % 22.8 % 20.0-5 0.0 Not Available [facility] [address] [facility], [place], [address], 05/11/2024 12:57:45 05/11/20 24 05/11/2024 CBC granulcytes % 68.8 % 30.0-7 0.0 Not Available [facility] [address] [facility], [place], [address], 05/11/2024 12:57:45 05/11/20 24 05/11/2024 CBC monocytes % 5.6 % 2.0-16 .0 Not Available [facility] [address] [facility], [place], [address], 05/11/2024 12:57:45 05/11/20 24 05/11/2024 CBC granulcytes# 3.4 x10 Not Nataliia ilable [facility] [address] [facility], [place], [address], 05/11/2024 12:57:45 05/11/20 24 05/11/2024 CBC lymphocytes # 1.1 x10 Not Available [facility] [address] [address], [place], [address], 05/11/2024 12:57:45 05/11/20 24 05/11/2024 CBC monocytes # 0.3 x10 Not Avai lable [facility] [address] [address], [place], [address], 05/11/2024 12:57:45 05/11/20 24 05/11/2024 HBA1C hemaglobin A1C 6.1 4.2-6. 5 Not Available [facility] [address] [facility] [address] [address], [place], [address], 05/11/2024 13:02:23 05/11/20 24 05/11/2024 CMP (FEMA LE) glucose 172.0 mg/dL 60.0-9 9.0 high Not Available [facility] [address] [facility] [address] [address], [place], [address], 05/11/2024 13:23:09 05/11/20 24 05/11/2024 CMP (FEMA LE) BUN (blood urea nitrogen) 10.0 mg/dL 10.0-2 6.0 Not Available [facility] [address] [facility], [place], [address], 05/11/2024 13:23:09 05/11/20 24 05/11/2024 CMP (FEMA LE) creatinine (serum) 0.6 mg/dL 0.4-1. 5 Not Available [facility] [address] [facility] 1, [place], [address], 05/11/2024 13:23:09 05/11/20 24 05/11/2024 CMP (FEMA LE) BUN/creatini ne ratio 16.67 ratio Not Available [facility] [address] [facility], [place], [address], 05/11/2024 13:23:09 05/11/20 24 05/11/2024 CMP (FEMA LE) eGFR calculated 134.[address] [facility] [address] [facility] [address] [facility] 1, [place], [address], 05/11/2024 13:23:09 05/11/20 24 05/11/2024 CMP (FEMA LE) total protein 8.1 g/dL 6.0-8. 5 Not Available [facility] [address] [facility] 1, [place], [address], 05/11/2024 13:23:09 05/11/20 24 05/11/2024 CMP (FEMA LE) total bilirubin 0.4 mg/dL 0.2-1. 3 Not Available [facility] [address] [facility] [address] [facility] 1, [place], [address], 05/11/2024 13:23:09 05/11/20 24 05/11/2024 CMP (FEMA LE) albumin 5.1 g/dL 3.5-5. 5 Not Available [facility] [address] [facility] [address] [facility] 1, [place], [address], 05/11/2024 13:23:09 05/11/20 05/11/2024 CMP (FEMA LE) globulin 3.0 calc Not Available [facility] [address] [facility], [place], [address], 05/11/2024 13:23:09 05/11/20 24 05/11/2024 CMP (FEMA LE) AST (SGOT) 23.0 U/L 0.0-46 .0 Not Available [facility] [address] [facility] 1, [place], [address], 05/11/2024 13:23:09 05/11/20 24 05/11/2024 CMP (FEMA LE) altv (SGPT) 18.0 U/L 13.0-6 9.0 normal Not Available [facility] [address] [facility], [place], [address], 05/11/2024 13:23:09 05/11/20 24 05/11/2024 CMP (FEMA LE) A/G ratio 1.7 ratio Not Available [facility] [address] [facility], [place], [address], 05/11/2024 13:23:09 05/11/20 24 05/11/2024 CMP (FEMA LE) ALP phos 53.0 U/L 30.0-1 40.0 normal Not Available [facility] [address] [facility] [address], [place], [address], 05/11/2024 13:23:09 05/11/20 24 05/11/2024 CMP (FEMA LE) calcium 9.3 mg/dL 8.4-10 .5 Not Available [facility] [address] [facility] 1, [place], [address], 05/11/2024 13:23:09 05/11/20 24 05/11/2024 CMP (FEMA LE) sodium 138.0 mmol/ L 136.0- 145.0 Not Available [facility] [address] [facility] 1, [place], [address], 05/11/2024 13:23:09 05/11/20 24 05/11/2024 CMP (FEMA LE) potassium 3.7 mmol/ L 3.5-5. 1 Not Available [facility] [address] [facility] 1, [place], [address], 05/11/2024 13:23:09 05/11/20 24 05/11/2024 CMP (FEMA LE) chloride 103.0 mmol/ L 98.0-1 10.0 normal Not Available [facility] [address] [facility] 1, [place], [address], 05/11/2024 13:23:09 05/11/20 24 05/11/2024 CMP (FEMA LE) C02 26.0 mmol/ L 22.0-3 1.0 Not Available [facility] [address] [facility] 1, [place], [address], 05/11/2024 13:23:09 05/11/20 24 05/11/2024 CMP (FEMA LE) anion gap 9.0 calc Not Available [facility] [address] [facility] [address] [facility] 1, [place], [address], 05/11/2024 13:23:09 05/11/20 24 05/11/2024 CMP (FEMA LE) osmolality 287.9 calc Not Available [facility] [address] [facility] [address] [address] [facility] 1, [place], [address], 05/11/2024 13:23:09 05/11/20 24 05/11/2024 TSH TSH 0.55 uIU/m L 0.49-3 .82 Not Available [facility] [address] [facility] 1, [place], [address], 05/11/2024 14:00:47 05/15/20 24 05/16/2024 IRON AND TOTAL IRON GOLDEN NG CAPAC ITY iron, total 12 mcg/d L 40-190 low Not Available [address], [address], 05/16/2024 09:07:55 05/15/20 24 05/16/2024 IRON AND TOTAL IRON GOLDEN NG CAPAC ITY iron binding capacity 459 mcg/d L_(ca lc) 250-45 0 high Not Available [address], [address], 05/16/2024 09:07:55 05/15/20 24 05/16/2024 IRON AND TOTAL IRON GOLDEN NG CAPAC ITY % saturation 3 %_(ca lc) 16-45 low Not Available [address], [address], 05/16/2024 09:07:55 05/15/20 24 05/16/2024 RETIC ULOCY TE COUNT reticulocyte count, automated 0.7 % normal Not Available [address], [address], 05/16/2024 09:07:56 05/15/20 24 05/16/2024 RETIC ULOCY TE COUNT reticulocyte , absolute 22910 cells /uL [address] normal Not Available [address], [address], 05/16/2024 09:07:56 05/15/20 24 05/16/2024 ALEJANDRINA TIN ferritin 2 NG/mL 16-154 low Not Available [address], [address], 05/16/2024 09:07:57 Result Notes None recorded. Problems Name Problem SNOMED Code Status Onset Date Resolution Date Notes Provider Name and Address Organization Details Recorded Time Frank carreno 576245309 Active 2022 GREGORIA CONDON ER null, [facility] 3 09:19:54 Blood group 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 417542733 Completed JENIFFER POWELL null, [facility] 4 08:51:21 Gestatio nal diabetes mellitus complica ting pregnanc y 92950974270 106 Active 2023 Fran Estes MD [address] [place] [address] , [facility] 4 12:13:34 Gestatio nal diabetes mellitus 77328521 Active 2023 Fran Estes MD [address] [place] [address] , [facility] 4 16:41:46 Increase d blood pressure 10740510 Active 2023 Fran Estes MD [address] [place] [address] , [facility] 4 12:37:55 Gestatio n period, 35 weeks 04475766 Active 2023 Fran Estes MD [address] [place] [address] , [facility] 4 09:36:42 Uncontro lled type 1 diabetes mellitus 010065247 Active 2023 Fran Estes MD [address] [place] [address] , [facility] 4 17:34:06 Anxiety 20095488 Active 2023 Fran Estes MD [address] [place] [address] , [facility] 4 09:46:29 Moderate recurren t major depressi on 46467567 Active 2023 Fran Estes MD [address] [place] [address], [address] [place] [address] , [facility] 4 10:31:59 Chronic diarrhea of unknown origin 42131185 Active 2023 Fran Estes MD [address] [place] [address], [address] [place] [address] , [facility] 4 12:01:27 Microcyt ic hypochro [place] anemia 38651131 Active 2023 Fran Estes MD [address] [place] [address], [address] [place] [address] , [facility] 4 07:51:21 Iron deficien cy anemia 88421822 Active 2024 Fran Estes MD [address] [place] [address], [address] , [facility] 5 08:13:28 Umbilica l hernia 590800161 Completed 201604/15/2017 Umbilica l Hernia - Status is Inactive ; 04/15/20 17 1:06PM by Gayle Silva CMT, Annotati on/Adden dum; Promoted ; acuity set as *; Not Available [facility] 3 03:07:55 Problem Notes None recorded. Medical [...] suspensio n Q 3 months 03/01 completed 54293; Recorded 06/05/19 23 11:18AM by Geno King [...] Updated DateTime 5 170.18 cm 20 kg/m2 84760.6 7 g 99 % 99 % 72 /min 16 /min 97.3 [degF] 112/70 mm[Hg] [facility] 5 11:30:07 Date Recorded Body height Body mass index (BMI) [Percentile] Per age and sex Body mass index (BMI) Body weight Body temperature Oxygen saturation Oxygen saturation in Arterial blood by Pulse oximetry Heart rate Systolic And Diastolic Provider Name and Address Organization Details Last Updated DateTime 4 170.18 cm 17 % 19.2 kg/m2 03690.0 7 g 97.5 [degF] 99 % 99 % 76 /min 120/70 mm[Hg] [facility] 4 09:29:59 Date Recorded Body height Body mass index (BMI) Body mass index (BMI) [Percentile] Per age and sex Body weight Body temperature Oxygen saturation Oxygen saturation in Arterial blood by Pulse oximetry Heart rate Systolic And Diastolic Provider Name and Address Organization Details Last Updated DateTime 4 170.18 cm 19.6 kg/m2 22 % 86038.7 5 g 97.6 [degF] 98 % 98 % 86 /min 122/74 mm[Hg] [facility] 4 12:12:00 Date Recorded Body height Body mass index (BMI) Body mass index (BMI) [Percentile] Per age and sex Body weight Body temperature Oxygen saturation Oxygen saturation in Arterial blood by Pulse oximetry Heart rate Systolic And Diastolic Provider Name and Address Organization Details Last Updated DateTime 4 170.18 cm 19.8 kg/m2 24 % 42271.4 4 g 97.5 [degF] 99 % 99 % 92 /min 120/78 mm[Hg] [facility] 4 15:05:24 Date Recorded Body height Body mass index (BMI) Body weight Body temperature Oxygen saturation Oxygen saturation in Arterial blood by Pulse oximetry Heart rate Systolic And Diastolic Provider Name and Address Organization Details Last Updated DateTime 4 170.18 cm 19.8 kg/m2 20014.7 4 g 97.8 [degF] 99 % 99 % 85 /min 120/80 mm[Hg] [facility] 4 11:33:51 Social History Question Answer Notes LastModified by OrganizCSMG Details LastModified Time Tobacco Smoking Status Former Smoker GREGORIA perez [facility] 03/01/2023 09:13:48 What Is Your Current Pack Years? 10packyears [email or web address] Information not available 06/29/2024 What Is Your [...] Recorded Time HPV9 7 completed GREGORIA perez [facility] 03/01/2023 09:10:18 IPV 5 completed TREBA NEUSCHWANDER null, [facility] 03/01/2023 09:10:18 MMR 8 completed TREBA NEUSCHWANDER null, [facility] 03/01/2023 09:10:18 MMR 4 completed TREBA NEUSCHWANDER null, [facility] 03/01/2023 09:10:18 pneumococcal conjugate PCV 7 5 completed TREBA NEUSCHWANDER null, [facility] 03/01/2023 09:10:18 pneumococcal conjugate PCV 7 6 completed TREBA NEUSCHWANDER null, [facility] 03/01/2023 09:10:18 pneumococcal conjugate PCV 7 4 completed TREBA NEUSCHWANDER null, [facility] 03/01/2023 09:10:18 Tdap 7 completed TREBA NEUSCHWANDER null, [facility] 03/01/2023 09:10:18 varicella 6 completed TREBA NEUSCHWANDER null, [facility] 03/01/2023 09:10:18 varicella 8 completed TREBA NEUSCHWANDER null, [facility] 03/01/2023 09:10:18 pneumococcal, unspecified formulation 4 completed TREBA NEUSCHWANDER null, [facility] 03/01/2023 09:10:18 polio, unspecified formulation 4 completed TREBA NEUSCHWANDER null, [facility] 03/01/2023 09:10:18 polio, unspecified formulation 8 completed TREBA NEUSCHWANDER null, [facility] 03/01/2023 09:10:18 Hep B, adolescent or pediatric 4 completed TREBA NEUSCHWANDER null, [facility] 03/01/2023 09:10:18 Hep B, adolescent or pediatric 3 completed TREBA NEUSCHWANDER null, [facility] 03/01/2023 09:10:18 Hep A, ped/adol, 2 dose 7 completed TREBA NEUSCHWANDER null, [facility] 03/01/2023 09:10:18 Hib (PRP-T) 4 completed TREBA NEUSCHWANDER null, [facility] 03/01/2023 09:10:18 Hib (PRP-T) 5 completed TREBA NEUSCHWANDER null, [facility] 03/01/2023 09:10:18 Hib (PRP-T) 6 completed TREBA NEUSCHWANDER null, [facility] 03/01/2023 09:10:18 Hib (PRP-T) 4 completed TREBA NEUSCHWANDER null, [facility] 03/01/2023 09:10:18 meningococcal MCV4P 7 completed TREBA NEUSCHWANDER null, [facility] 03/01/2023 09:10:18 DTaP 4 completed TREBA NEUSCHWANDER null, [facility] 03/01/2023 09:10:18 DTaP 5 completed TREBA NEUSCHWANDER null, [facility] 03/01/2023 09:10:18 DTaP 6 completed TREBA NEUSCHWANDER null, [facility] 03/01/2023 09:10:19 DTaP 8 completed TREBA NEUSCHWANDER null, [facility] 03/01/2023 09:10:19 DTaP-Hep B-IPV 4 completed TREBA NEUSCHWANDER null, [facility] 03/01/2023 09:10:19 Past Encounters Encounter ID Performer Location Encounter Start Date Encounter Closed Date Diagnosis/Indication Diagnosis SNOMED-CT Code Diagnosis ICD10 Code Diagnosis Note [id number] CHANTELLE MARY [facility] ([facility]) [address] [place] [id number] 02/11/2023 17:20:25 02/11/2023 18:50:23 detection examination 48577898 Z32.00 Positive urine test. Patient encouraged to establish with OBGYN for new OB appointmen t. Desires to establish with Dr. Owens. [id number] Umm Owens MD [facility] ([facility]) [address] [place] [id number] 5 03/01/2023 09:00:57 03/01/2023 13:33:53 Multigravida 207561826 Z34.81 Gestation period, 7 weeks 17083027 Z3A.01 Traumatic injury during 302931971 T14.90XA [id number] Umm Owens MD [facility] ([facility]) [address] [place] [id number] 03/30/2023 09:47:47 03/30/2023 18:15:49 [id number] Umm Owens MD [facility] ([facility]) [address] [place] [id number] 03/30/2023 10:46:07 03/30/2023 14:45:00 Multigravida 920500063 Z34.81 Gestation period, 11 weeks 23924435 Z3A.11 Vaginal discharge 510267 006 N89.8 [id number] Umm Owens MD [facility] ([facility]) [address] [place] [id number] 05/03/2023 14:54:02 05/03/2023 15:47:44 Multigravida 784944672 Z34.82 Gestation period, 16 weeks 28682869 Z3A.16 Anemia of 2734 2003 O99.607 [id number] Umm Owens MD [facility] ([facility]) [address] [place] [address] [id number] 05/31/2023 12:45:57 05/31/2023 18:12:44 Normal in multigravida 8125368763 58123 Z34.82 [id number] Umm Owens MD [facility] ([facility]) [address] [place] [id number] 05/31/2023 13:27:30 06/01/2023 00:18:08 Multigravida 982742174 Z34.82 Gestation period, 20 weeks 36351352 Z3A.20 [id number] Umm Owens MD [facility] ([facility]) [address] [place] [id number] 05/31/2023 13:59:50 05/31/2023 14:45:20 Multigravida 915793178 Z34.82 Gestation period, 20 weeks 07329146 Z3A.20 [id number] Umm Owens MD [facility] ([facility]) [address] [place] [address] [id number] 5 06/28/2023 10:28:32 06/28/2023 11:08:47 Multigravida 533132738 Z34.82 Gestation period, 24 weeks [id number] Z3A.24 [id number] Umm Owens MD [facility] ([facility]) [address] [place] [address] [phone] 07/19/2023 11:45:33 07/19/2023 14:20:01 Multigravida [id number] Z34.82 Gestation period, 27 weeks [id number] Z3A.27 Blood grou p 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 [id number] Z67.11 Order for RhoGam injection sent to [facility] infusion clinic 07/19/23 [id number] Umm Owens MD [facility] ([facility]) [address] [place] [address] [phone] 08/04/2023 12:36:18 08/09/2023 04:11:27 [id number] Umm Owens MD [facility] ([facility]) [address] [place] [address] [phone] 08/04/2023 10:15:08 08/05/2023 12:01:08 Multigravida [id number] Z34.82 [id number] Fran Estes MD [facility] ([facility]) [address] [place] [address] [phone] 08/09/2023 11:40:01 08/09/2023 17:27:37 Multigravida [id number] Z34.83 Anticipato ry guidance provided Gestationa l diabetes mellitus complicating [id number] 9106 O24.419 Diabetes education provided for the patient. Reinforced diabetes diet to take walks with each meal. Will start metformin. Patient was encouraged to provide testing and 2-hour postprandi al blood sugar readings over the next week to the clinic and expressed understand ing. Will plan on starting growth ultrasound and test in 2 weeks. [id number] Fran Estes MD [facility] ([facility]) [address] [place] [address] [phone] 5 08/17/2023 16:28:29 08/17/2023 17:06:58 Gestational diabetes mellitus [id number] O24.414 Based on the significan tly elevated [...] her back for routine visit next week. [id number] Fran Estes MD [facility] ([facility]) [address] [place] [address] [phone] 5 08/23/2023 11:09:18 08/23/2023 12:07:35 Gestational diabetes mellitus [id number] O24.414 Patient's blood sugar is doing better [...] fasting glucose is not under 95. Multigravida [id number] Z 34.83 Anticipato ry guidance provided [id number] Umm Owens MD [facility] ([facility]) [address] [place] [address] [phone] 5 08/23/2023 12:37:46 08/23/2023 18:28:10 [id number] Fran Estes MD [facility] ([facility]) [address] [place] [address] [phone] 5 09/12/2023 10:56:24 09/12/2023 11:32:49 Gestational diabetes mellitus [id number] O24.414 Patient blood sugars doing significan tly [...] 1 week. Normal pre gnancy in multigravida [id number] 54846 Z34.83 Gestation period, 35 weeks [id number] Z3A.35 [id number] Fran Estes MD [facility] ([facility]) [address] [place] [address] [id number] 5 09/26/2023 10:43:54 09/26/2023 11:23:44 Multigravida [id number] Z34.83 Anticipato ry guidance provided Gestationa l diabetes mellitus complicating [id number] 9106 O24.419 Patient has not been doing [...] likely wait to 39 weeks before induction. [id number] Fran Estes MD [facility] ([facility]) [address] [place] [address] [id number] 5 01/10/2024 17:08:42 01/10/2024 17:43:28 Uncontrolled type 1 diabetes mellitus [id number] E10.65 Based on habitus and kind of [...] getting a continuous glucose monitor for her. [id number] Fran Estes MD [facility] ([facility]) [address] [place] [address] [id number] 5 02/17/2024 09:19:56 02/17/2024 09:54:31 Uncontrolled type 1 diabetes mellitus [id number] E10.65 Will transition her over to glargine and lispro insulin. Will start with 4 units at bedtime of glargine and 2 units with meals of lispro. Go ahead and check an A1c today. Will also work on getting her a Dexcom to help her manage her sugars better. Moderate r ecurrent major depression 00006277 F33.1 Discussed options for treatment for her depression and anxiety and the patient was open to medication s. Will start with Lexapro and follow-up in 1 month. Discussed the risks and benefits of this medication . Anxiety 83780668 F41.9 Contracept ion care management [id number] Z30.9 Jerad the risks and benefits of Nexplanon. Discussed other long-term solutions for control including IUD. The patient wants to consider her options and she will notify us of which control option she would like to proceed with. [id number] Fran Estes MD [facility] ([facility]) [address] [place] [address] [phone] 5 03/16/2024 11:56:35 03/16/2024 13:13:41 Anxiety 57068827 F41.9 Depression is doing better but anxiety is still high. Will increase the dose to 20 mg of Lexapro. Moderate r ecurrent major depression 14616077 F33.1 Uncontroll ed type 1 diabetes mellitus 662290002 E10.65 Patient's blood sugars on average have been high the last 2 weeks. Given the highest elevation after lunchtime, I would recommend increasing the dose of lunchtime insulin by 1 unit. [id number] Fran Estes MD [facility] ([facility]) [address] [place] [address] [id number] 5 03/26/2024 14:56:27 03/26/2024 16:11:55 Gynecologic examination 48760136 Z01.411 Cervix had mild abnormal appearance but could be related to transition al cells as her cervix was mildly open as she had just finished her menstruati on. Will await Pap results and do any further interventi on if needed. [id number] Fran Estes MD [facility] ([facility]) [address] [place] [address] [id number] 5 05/11/2024 11:24:32 05/11/2024 12:41:03 Chronic diarrhea of unknown origin [id number] K52.9 We will evaluate this further with labs initially. May need to obtain stool studies. Uncontroll ed type 1 diabetes mellitus [id number] E10.65 Patient reports that her blood sugars appear to be doing better. Will check an A1c today. The patient is having occasional lows that seems to be related to her menstrual cycle. Continue diabetic diet and current medication s. [id number] Fran Estes MD [facility] ([facility]) [address] [place] [address] [id number] 5 06/29/2024 11:13:42 06/29/2024 12:24:47 Uncontrolled type 1 diabetes mellitus [id number] E10.65 Blood sugars are not well-contr olled. [...] [place] [id number] Trever Kebede [id number] 5 Tiannaeileen Kebede 10/11/2024 1 HEALTHY [place] [id number] Trever Kebede [id number] 5 Trever Kebede 07/30/2024 [place] [id number] ) Trever Kebede [id number] Trever Kebede Notes Date Note Type Note [...] like to consider medications. Fran Estes MD [address] [place] [address], [phone], [facility] 02/17/2024 10:34:40 03/16/2024 text/html Pt is [...] blood sugars after lunchtime. Fran Estes MD [address] [place] [address], [phone], [facility] 03/18/2024 09:10:19 03/26/2024 text/html Annual GYNReport [...] no other significant concerns. Fran Estes MD [address] [place] [address], [phone], [facility] 03/26/2024 17:16:22 05/11/2024 text/html DiarrheaReported bypatient.Onset/Timing [...] it to the bathroom. Fran Estes MD [address] [place] [address], [phone], [facility] 05/12/2024 12:01:44 06/29/2024 text/html This is a 19-yea r-old female who presents today to discuss referral. The patient wants to proceed with an insulin pump and would like referral to endocrinology. Patient states that she has been having some difficulty controlling her blood sugars recently. Fran Estes MD [address] [place] [address], [phone], [facility] 07/03/2024 17:31:51 OBGyn Episode Ob Episode Information Episode Created Date Number of Fetuses Patient Bloodtype Patient rh Status Prepregnancy Weight lbs Domestic Partner Domestic Partner Phone Father Name Sander Wooden Pencils Status 03/01/20 23 1 CLOSED Fetus Data [...] Domestic Partner Domestic Partner Phone Father Name Sander Wooden Pencils Status 03/01/20 23 1 A Negative Richar CLOSED Fetus Data First Name Last Name Admitted to NICU Weight (g) Sex Living Outcome Pediatric Complications Fetus ID Race Codes Race Delivery Type [id number] Problems Problem Notes Problem Name Start Date End Date Resolution Snomed Code Not e Blood group 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 2 [id number] Rashaad Calculation Initial Rashaad Date Initial Exam [...] Latest Days Gestation 0 10/17/19 24 0 Pre-cornelio Flowsheet Flowsheet Date 03/01/2023 Langford Score Blood Edema Fundus Height Fundus Units Glucose Ketones Leukocytes Nitrite Labor Signs Protein Cervic Dilation Cervic Effacement Cervic Station Type Weight in lbs Pre/Post Dialysis Refused Weight 118.308257557086 BP Diastolic BP Location Tested BP Systolic [...] Weight in lbs Pre/Post Dialysis Refused Weight 119.036693197553 BP Diastolic BP Location Tested BP Systolic [...] Weight in lbs Pre/Post Dialysis Refused Weight 119.657053879454 BP Diastolic BP Location Tested BP Systolic [...] Weight in lbs Pre/Post Dialysis Refused Weight 127.964380192528 BP Diastolic BP Location Tested BP Systolic [...] Weight in lbs Pre/Post Dialysis Refused Weight 124.311308531183 BP Diastolic BP Location Tested BP Systolic [...] Weight in lbs Pre/Post Dialysis Refused Weight 125.891355158152 BP Diastolic BP Location Tested BP Systolic [...] Present Fetus Movement Comments order sent to [facility] for RhoGam injection. Flowsheet Date 08/04/2023 Langford [...] in lbs Pre/Post Dialysis Refused With clothes 125.92212074428 BP Diastolic BP Location Tested BP Systolic [...] in lbs Pre/Post Dialysis Refused With clothes 128.935855733077 BP Diastolic BP Location Tested BP Systolic [...] in lbs Pre/Post Dialysis Refused With clothes 132.309620720994 BP Diastolic BP Location Tested BP Systolic [...] in lbs Pre/Post Dialysis Refused With clothes 134.114452204425 BP Diastolic BP Location Tested BP Systolic [...] in lbs Pre/Post Dialysis Refused With clothes 119.366618734260 BP Diastolic BP Location Tested BP Systolic [...] Estim ated Date of Delivery false Thalassemia (Estonian, Danish, Mediterranean, Or Background): MCV < 80 false Neural Tube Defect (Meningomyelocele, Spina Bifi da, Or Anencephaly) false Congenital Heart Defect false Down Syndrome false Yg-Sachs (eg, Buddhism, Cajun, Estonian-Otoe) f alse Natacha Disease false Sickle Cell Disease Or Trait () false Hemophilia Or Other Blood Disorders false Muscular Dystrophy false Cystic Fibrosis false Mears's Chorea false Intellectual Disability/Autism false If Yes, [...] Domestic Partner Domestic Partner Phone Father Name Sander Wooden Pencils Status 03/01/20 23 1 CLOSED Fetus Data [...] Domestic Partner Domestic Partner Phone Father Name Sander Wooden Pencils Status 01/10/20 24 1 CLOSED Fetus Data [...]
--- NOTE | 2024-11-27 20:11 | ED_ITS ---
HPI - Recheck/Abnormal Lab/Rx General: Chief Complaint: Recheck/Abnormal Lab/Rx Stated Complaint: Get Stiches out Time Seen by Provider: 11/27/24 20:02 Source: patient Mode of arrival: ambulatory Limitations: no limitations History of Present Illness: 19-year-old female laceration to her lef t middle finger little over a week ago she is here for suture removal she denies any pain denies any fever denies any redness Related Data Previous Rx's ?Medication ?Instructions ?Recorded ferrous sulfate 325 mg (65 mg 325 mg PO BID #60 tabs 1 07/12/20 iron) tablet,delayed release Allergies Allergy/AdvReac Type Severity Reaction Status Date / Time No Known Allergies Allergy Verified 11/27/24 20:08 Review of Systems Const: Denies: fever(s) Musc: Denies: extremity pain Skin/Breast: Denies: erythema PFSH ED PFSH: Medical History Anemia affecting Gestational diabetes mellitus (GDM) affecting Social History Smoking and tobacco/nicotine status: never used tobacco/nicotine Alcohol intake: never Substance/Drug Use: never Physical Exam Const: COMMON NORMALS: no acute distress HENMT: COMMON NORMALS: normocephalic HEAD & SCALP: normocephalic Chest: COMMONS NORMALS: normal inspection of the chest Resp: COMMON NORMALS: normal respiratory effort Skin: NARRATIVE SKIN EXAM: [address] palmar aspect of left middle finger is clean dry and intact no signs infection Course Vital Signs: Vital signs: Vital Signs Temperature 98.2 F 11/27/24 20:04 Pulse Rate 91 11/27/24 20:04 Respiratory Rate 16 11/27/24 20:04 Blood Pressure 109/78 11/27/24 20:04 Pulse Oximetry 100 11/27/24 20:04 Oxygen Delivery Me thod Room Air 11/27/24 20:04 MDM - Recheck/Abnormal Lab/Rx Medical Decision Making Patient presents here for suture removal did remove her sutures wound is well- appearing she stable for discharge follow-up PCP return if worsening Medical Records I reviewed the patient's medical records. No radiology studies performed this visit Discharge Plan Discharge Patient Disposition: Home Clinical Impression: Encounter for removal of sutures Condition: Stable Prescriptions: No Action ferrous sulfate 325 mg (65 mg iron) Tablet,Delayed Release (Dr/Ec) 325 mg PO BID Qty: 60 0RF Discharge Orders: Discharge ED (Routine); Ordered 11/27/24 Ordered By: Mary Ann Sheppard Referrals: Fran Estes MD [Primary Care Provider, [facility]] Discharge Diet: Advance as tolerated Discharge Activity: Resume usual activity Patient Instructions: Stitches Removal (ED) Print Language: Cymraes Coding Level of Care Code ED Transplant Nurse Practitioner for Isaiah Cardozo
== END 2024-11-27 20:17 | disposition home or self-care (01) ==
PROVIDERS: Emergency Provider Emergency Medicine; PCP Family Medicine
DX: Z48.02 Encounter for removal of sutures (principal)
CPT/HCPCS: 99281

== ENCOUNTER 2024-12-04 18:20 | Emergency (ER) | payer BC, MEDICAID, SELFPAY ==
--- OUTSIDE RECORDS SUMMARY | 2024-12-04 18:27 | XMS_ITS | Data Portability ---
Author Organization [facility] Riaz Giles [facility], [facility] Address [address] [place] [address] Care Team Providers Care Stock Chaser Name Role Phone ARMANDOUMM BAJWA Primary Care Provider Assessment Encounter Date Assessment Date Assessment LastModified by Organization Details LastModified Time 03/26/2024 03/26/2024 Annual gynecological exam performed. . [email or web address] Not available 03/26/2024 17:13:58 Plan of Treatment Reminders Order Date Submit Date Provider Last Modified By Organization Details Last Modified Time Details Appointments None recorded. Lab hemoglobin A1C/hemoglo bin total, QN, blood 2023 024 [facility], [address] [facility] [address], [facility], [place], [address], 13:02:23 CMP, serum or plasma 2023 024 [facility], [address] [facility] [address], [facility], [place], [address], 13:23:09 CBC 2023 024 [facility], [address], [address], [place], [address], 12:57:45 thyrotropin , QN, serum or plasma 2023 024 [facility], [address], [address], [place], [address], 4 14:00:47 pap, IG + CT/NG + reflex HPV 2023 024 [email or web address], [address], [address], [place], [address], 4 08:50:27 HbA1c (hemoglobin A1c), blood 2023 024 [facility] ([facility]), [address], [place], [address], 4 10:06:03 Referral endocrinolo gy referral 2024 025 [email or web address] 4 Farhat Mares MD, [address] [facility], [place], [address], 5 13:16:21 Procedures None recorded. Surgeries None recorded. Imaging None recorded. Medication Orders Lexapro 20 mg tablet 2023 024 [facility][id number], [address], [facility], [place], [address], 4 12:31:56 insulin glargine (U-100) 100 unit/mL (3 mL) subcutaneou s pen 2023 024 dcrase [id number], [address], [facility], [place], [address], 4 09:46:17 insulin lispro (U-100) 100 unit/mL subcutaneou s pen 2023 024 [id number], [address], [address], [place], [address], 4 12:09:36 Lexapro 10 mg tablet 2023 024 [facility] #[id number], [address], [address], 11:30:43 Patient TargetsNo targets recorded. Patient InstructionsNo instructions recorded. Reason for Referral Endocrinology Referral for U ncontrolled type 1 diabetes mellitus Referring Physician: Fran Estes, Family Medicine, Encounter Date: 06/29/2024 Results Created Date Observation Date Name Description Value Unit Range Abnormal Flag Note LastModifiedBy Organization Detail LastModifiedTime 02/17/2002/17/2024 HbA1c (hemo globi n A1c), blood HbA1c 6.1 Not Available [facility] ([facility]) [address] [place], [address], 02/17/2024 09:43:24 03/26/20 24 04/02/2024 THINP REP TIS PAP (REFL ) HPV MRNA E6/E7 clinical information: normal Deena l exam Not Available [address] [address] [place], [address], 04/02/2024 20:12:59 03/26/20 24 04/02/2024 THINP REP TIS PAP (REFL ) HPV MRNA E6/E7 LMP: normal NONE GIVEN Not Available [address] [address] [place], [address], 04/02/2024 20:12:59 03/26/20 24 04/02/2024 THINP REP TIS PAP (REFL ) HPV MRNA E6/E7 prev. Pap: normal NONE GIVEN Not Available [facility] [address] [address] [place], [address], 04/02/2024 20:12:59 03/26/20 24 04/02/2024 THINP REP TIS PAP (REFL ) HPV MRNA E6/E7 prev. BX: normal NONE GIVEN Not Available [address] [address] [place], [address], 04/02/2024 20:12:59 03/26/20 24 04/02/2024 THINP REP TIS PAP (REFL ) HPV MRNA E6/E7 source: normal Cervi x, Endoc ervix Not Available [address], [address], 04/02/2024 20:12:59 03/26/20 24 04/02/2024 THINP REP TIS PAP (REFL ) HPV MRNA E6/E7 statement of adequacy: normal Satis facto ry for evalu ation . Endoc ervic al/tr ansfo rmati on zone compo nent prese nt. Age and/o r menst rual statu s not provi ded Not Available [address], [address], 04/02/2024 20:12:59 03/26/20 24 04/02/2024 THINP REP TIS PAP (REFL ) HPV MRNA E6/E7 interpretati on/result: normal Cytol ogy Resul ts: Negat axel for intra epith elial lesio n or kellie jaramillo . Not Available [address] [address] [place], [address], 04/02/2024 20:12:59 03/26/20 24 04/02/2024 THINP REP TIS PAP (REFL ) HPV MRNA E6/E7 comment: normal This Pap test has been evalu ated with compu ter ki carina techn ology . Not Available [address] [address] [place], [address], 04/02/2024 20:12:59 03/26/20 24 04/02/2024 THINP REP TIS PAP (REFL ) HPV MRNA E6/E7 cytotechnolo gist: normal MVB, CT( CP) CT Scree tashia Locat ion: [address] [place] [address] Not Available [address] [address] [place], [address], 04/02/2024 20:12:59 03/26/20 24 04/02/2024 THINP REP [...] clini kiran infor matio n. Not Available [facility] [address] [place], [address], 04/02/2024 20:12:59 05/11/20 24 05/11/2024 CBC WBC 5.0 x10 4.0-10 .5 Not Available [facility] [address] [facility], [place], [address], 05/11/2024 12:57:45 05/11/20 24 05/11/2024 CBC RBC 4.32 x10 3.50-5 .50 Not Available [facility] [address] [facility], [place], [address], 05/11/2024 12:57:45 05/11/20 24 05/11/2024 CBC HGB 8.9 g/dL 12.0-1 6.0 low Not Available [facility] [address] [facility], [place], [address], 05/11/2024 12:57:45 05/11/20 24 05/11/2024 CBC HCT 28.4 % 37.0-4 7.0 low Not Available [facility] [address] [facility], [place], [address], 05/11/2024 12:57:45 05/11/20 24 05/11/2024 CBC MCV 65.7 fL 80.0-9 9.9 low Not Available [facility] [address] [facility], [place], [address], 05/11/2024 12:57:45 05/11/20 24 05/11/2024 CBC MCH 20.6 pg 27.0-3 2.0 low Not Available [facility] [address] [facility], [place], [address], 05/11/2024 12:57:45 05/11/20 24 05/11/2024 CBC MCHC 31.3 g/dL 32.0-3 6.0 low Not Available [facility] [address] [facility], [place], [address], 05/11/2024 12:57:45 05/11/20 24 05/11/2024 CBC RDW 19.0 % 11.5-1 4.5 high Not Available [facility] [address] [facility], [place], [address], 05/11/2024 12:57:45 05/11/20 24 05/11/2024 CBC plt 337.9 x10 140.0- 451.0 Not Available [facility] [address] [facility], [place], [address], 05/11/2024 12:57:45 05/11/20 24 05/11/2024 CBC lymphocytes % 22.8 % 20.0-5 0.0 Not Available [facility] [address] [facility], [place], [address], 05/11/2024 12:57:45 05/11/20 24 05/11/2024 CBC granulcytes % 68.8 % 30.0-7 0.0 Not Available [facility] [address] [facility], [place], [address], 05/11/2024 12:57:45 05/11/20 24 05/11/2024 CBC monocytes % 5.6 % 2.0-16 .0 Not Available [facility] [address] [facility], [place], [address], 05/11/2024 12:57:45 05/11/20 24 05/11/2024 CBC granulcytes# 3.4 x10 Not Nataliia ilable [facility] [address] [facility] [place], [address], 05/11/2024 12:57:45 05/11/20 24 05/11/2024 CBC lymphocytes # 1.1 x10 Not Available [facility] [address] [address], [place], [address], 05/11/2024 12:57:45 05/11/20 24 05/11/2024 CBC monocytes # 0.3 x10 Not Avai lable [facility] [address] [address], [place], [address], 05/11/2024 12:57:45 05/11/20 24 05/11/2024 HBA1C hemaglobin A1C 6.1 4.2-6. 5 Not Available [facility] [address] [facility] [address] [address], [place], [address], 05/11/2024 13:02:23 05/11/20 24 05/11/2024 CMP (FEMA LE) glucose 172.0 mg/dL 60.0-9 9.0 high Not Available [facility] [address] [facility] [address] [address], [place], [address], 05/11/2024 13:23:09 05/11/20 24 05/11/2024 CMP (FEMA LE) BUN (blood urea nitrogen) 10.0 mg/dL 10.0-2 6.0 Not Available [facility] [address] [facility] [address] [facility], [place], [address], 05/11/2024 13:23:09 05/11/20 24 05/11/2024 CMP (FEMA LE) creatinine (serum) 0.6 mg/dL 0.4-1. 5 Not Available [facility] [address] [facility], [place], [address], 05/11/2024 13:23:09 05/11/20 24 05/11/2024 CMP (FEMA LE) BUN/creatini ne ratio 16.67 ratio Not Available [facility] [address] [facility], [place], [address], 05/11/2024 13:23:09 05/11/20 24 05/11/2024 CMP (FEMA LE) eGFR calculated 134.1 Not Available [facility] [address] [facility] [address] [facility], [place], [address], 05/11/2024 13:23:09 05/11/20 24 05/11/2024 CMP (FEMA LE) total protein 8.1 g/dL 6.0-8. 5 Not Available [facility] [address] [facility], [place], [address], 05/11/2024 13:23:09 05/11/20 24 05/11/2024 CMP (FEMA LE) total bilirubin 0.4 mg/dL 0.2-1. 3 Not Available [facility] [address] [facility] [facility], [place], [address], 05/11/2024 13:23:09 05/11/20 24 05/11/2024 CMP (FEMA LE) albumin 5.1 g/dL 3.5-5. 5 Not Available [facility] [address] [facility] [address] [facility], [place], [address], 05/11/2024 13:23:09 05/11/20 05/11/2024 CMP (FEMA LE) globulin 3.0 calc Not Available [facility] [address] [facility], [place], [address], 05/11/2024 13:23:09 05/11/20 24 05/11/2024 CMP (FEMA LE) AST (SGOT) 23.0 U/L 0.0-46 .0 Not Available [facility] [address] [facility], [place], [address], 05/11/2024 13:23:09 05/11/20 24 05/11/2024 CMP (FEMA LE) altv (SGPT) 18.0 U/L 13.0-6 9.0 normal Not Available [facility] [address] [facility] [place], [address], 05/11/2024 13:23:09 05/11/20 24 05/11/2024 CMP (FEMA LE) A/G ratio 1.7 ratio Not Available [facility] [address] [facility], [place], [address], 05/11/2024 13:23:09 05/11/20 24 05/11/2024 CMP (FEMA LE) ALP phos 53.0 U/L 30.0-1 40.0 normal Not Available [facility] [address] [facility], [place], [address], 05/11/2024 13:23:09 05/11/20 24 05/11/2024 CMP (FEMA LE) calcium 9.3 mg/dL 8.4-10 .5 Not Available [facility] [address] [facility], [place], [address], 05/11/2024 13:23:09 05/11/20 24 05/11/2024 CMP (FEMA LE) sodium 138.0 mmol/ L 136.0- 145.0 Not Available [facility] [address] [facility], [place], [address], 05/11/2024 13:23:09 05/11/20 24 05/11/2024 CMP (FEMA LE) potassium 3.7 mmol/ L 3.5-5. 1 Not Available [facility] [address] [facility], [place], [address], 05/11/2024 13:23:09 05/11/20 24 05/11/2024 CMP (FEMA LE) chloride 103.0 mmol/ L 98.0-1 10.0 normal Not Available [facility] [address] [facility], [place], [address], 05/11/2024 13:23:09 05/11/20 24 05/11/2024 CMP (FEMA LE) C02 26.0 mmol/ L 22.0-3 1.0 Not Available [facility] [address] [facility], [place], [address], 05/11/2024 13:23:09 05/11/20 24 05/11/2024 CMP (FEMA LE) anion gap 9.0 calc Not Available [facility] [address] [facility], [place], [address], 05/11/2024 13:23:09 05/11/20 24 05/11/2024 CMP (FEMA LE) osmolality 287.9 calc Not Available [facility] [address] [facility] [address] [facility], [place], [address], 05/11/2024 13:23:09 05/11/20 24 05/11/2024 TSH TSH 0.55 uIU/m L 0.49-3 .82 Not Available [facility] [address] [facility], [place], [address], 05/11/2024 14:00:47 05/15/20 24 05/16/2024 IRON AND TOTAL IRON GOLDEN NG CAPAC ITY iron, total 12 mcg/d L 40-190 low Not Available [address], [address], 05/16/2024 09:07:55 05/15/20 24 05/16/2024 IRON AND TOTAL IRON GOLDEN NG CAPAC ITY iron binding capacity 459 mcg/d L_(ca lc) 250-45 0 high Not Available [address], [address], 05/16/2024 09:07:55 05/15/20 24 05/16/2024 IRON AND TOTAL IRON GOLDEN NG CAPAC ITY % saturation 3 %_(ca lc) 16-45 low Not Available [address], [address], 05/16/2024 09:07:55 05/15/20 24 05/16/2024 RETIC ULOCY TE COUNT reticulocyte count, automated 0.7 % normal Not Available [address], [address], 05/16/2024 09:07:56 05/15/20 24 05/16/2024 RETIC ULOCY TE COUNT reticulocyte , absolute 53307 cells /uL [address] normal Not Available [address], [address], 05/16/2024 09:07:56 05/15/20 24 05/16/2024 ALEJANDRINA TIN ferritin 2 NG/mL 16-154 low Not Available [address], [address], 05/16/2024 09:07:57 Result Notes None recorded. Problems Name Problem SNOMED Code Status Onset Date Resolution Date Notes Provider Name and Address Organization Details Recorded Time Blood group 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 062004741 Completed MCKALE ANDRE null, [facility] 4 08:51:21 Umbilica l hernia 745662760 Completed 201604/15/2017 Umbilica l Hernia - Status is Inactive ; 04/15/20 17 1:06PM by Gayle Silva CMT, Annotati on/Adden dum; Promoted ; acuity set as *; Not Available [facility] 3 03:07:55 Multigra ev 040437566 Active 2022 GREGORIA GARCIA null, [facility] 3 09:19:54 Gestatio nal diabetes mellitus complica ting pregnanc y 11653953693 106 Active 2023 Fran Estes MD [address] [place] [address], [address] , [facility] 4 12:13:34 Gestatio nal diabetes mellitus 35344468 Active 2023 Fran Estes MD [address] [place] [address], [address] , [facility] 4 16:41:46 Increase d blood pressure 48919460 Active 2023 Fran Estes MD [address] [place] [address], [address] , [facility] 4 12:37:55 Gestatio n period, 35 weeks 98350118 Active 2023 Fran Estes MD [address] [place] [address], [address] , [facility] 4 09:36:42 Uncontro lled type 1 diabetes mellitus 599426441 Active 2023 Fran Estes MD [address] [place] [address], [address] , [facility] 08/27/202 4 17:34:06 Anxiety 99790177 Active 2023 Fran Estes MD [address] [place] [address], [address] [place] [address] , [facility] 4 09:46:29 Moderate recurren t major depressi on 14600706 Active 2023 Fran Estes MD [address] [place] [address] , [facility] 4 10:31:59 Chronic diarrhea of unknown origin 35331901 Active 2023 Fran Estes MD [address] [place] [address], [address] [place] [address] , [facility] 4 12:01:27 Microcyt ic hypochro [place] anemia 05203161 Active 2023 Fran Estes MD [address] [place] [address] , [facility] 4 07:51:21 Iron deficien cy anemia 88286211 Active 2024 Fran Estes MD [address] [place] [address], [address] [place] [address] , [facility] 5 08:13:28 Problem Notes None recorded. Medical Equipment None [...] suspensio n Q 3 months 03/01 completed 58255; Recorded 06/05/19 23 11:18AM by Geno King [...] Updated DateTime 5 170.18 cm 20 kg/m2 61242.6 7 g 99 % 99 % 72 /min 16 /min 97.3 [degF] 112/70 mm[Hg] [facility] 5 11:30:07 Date Recorded Body height Body mass index (BMI) [Percentile] Per age and sex Body mass index (BMI) Body weight Body temperature Oxygen saturation Oxygen saturation in Arterial blood by Pulse oximetry Heart rate Systolic And Diastolic Provider Name and Address Organization Details Last Updated DateTime 4 170.18 cm 17 % 19.2 kg/m2 95573.0 7 g 97.5 [degF] 99 % 99 % 76 /min 120/70 mm[Hg] [facility] 4 09:29:59 Date Recorded Body height Body mass index (BMI) Body mass index (BMI) [Percentile] Per age and sex Body weight Body temperature Oxygen saturation Oxygen saturation in Arterial blood by Pulse oximetry Heart rate Systolic And Diastolic Provider Name and Address Organization Details Last Updated DateTime 4 170.18 cm 19.6 kg/m2 22 % 41218.7 5 g 97.6 [degF] 98 % 98 % 86 /min 122/74 mm[Hg] [facility] 4 12:12:00 Date Recorded Body height Body mass index (BMI) Body mass index (BMI) [Percentile] Per age and sex Body weight Body temperature Oxygen saturation Oxygen saturation in Arterial blood by Pulse oximetry Heart rate Systolic And Diastolic Provider Name and Address Organization Details Last Updated DateTime 4 170.18 cm 19.8 kg/m2 24 % 58689.4 4 g 97.5 [degF] 99 % 99 % 92 /min 120/78 mm[Hg] [facility] 4 15:05:24 Date Recorded Body height Body mass index (BMI) Body weight Body temperature Oxygen saturation Oxygen saturation in Arterial blood by Pulse oximetry Heart rate Systolic And Diastolic Provider Name and Address Organization Details Last Updated DateTime 4 170.18 cm 19.8 kg/m2 20493.7 4 g 97.8 [degF] 99 % 99 % 85 /min 120/80 mm[Hg] [facility] 4 11:33:51 Social History Question Answer Notes LastModified by OrganizFrequent Browser Details LastModified Time Tobacco Smoking Status Former Smoker GREGORIA perez [facility] 03/01/2023 09:13:48 What Is Your Current Pack Years? 10packyears [email or web address] Information not available 06/29/2024 What Is Your [...] Recorded Time HPV9 7 completed GREGORIA perez [facility] 03/01/2023 09:10:18 IPV 5 completed TREBA NEUSCHWANDER null, [facility] 03/01/2023 09:10:18 MMR 8 completed TREBA NEUSCHWANDER null, [facility] 03/01/2023 09:10:18 MMR 4 completed TREBA NEUSCHWANDER null, [facility] 03/01/2023 09:10:18 pneumococcal conjugate PCV 7 5 completed TREBA NEUSCHWANDER null, [facility] 03/01/2023 09:10:18 pneumococcal conjugate PCV 7 6 completed TREBA NEUSCHWANDER null, [facility] 03/01/2023 09:10:18 pneumococcal conjugate PCV 7 4 completed TREBA NEUSCHWANDER null, [facility] 03/01/2023 09:10:18 Tdap 7 completed TREBA NEUSCHWANDER null, [facility] 03/01/2023 09:10:18 varicella 6 completed TREBA NEUSCHWANDER null, [facility] 03/01/2023 09:10:18 varicella 8 completed TREBA NEUSCHWANDER null, [facility] 03/01/2023 09:10:18 pneumococcal, unspecified formulation 4 completed TREBA NEUSCHWANDER null, [facility] 03/01/2023 09:10:18 polio, unspecified formulation 4 completed TREBA NEUSCHWANDER null, [facility] 03/01/2023 09:10:18 polio, unspecified formulation 8 completed TREBA NEUSCHWANDER null, [facility] 03/01/2023 09:10:18 Hep B, adolescent or pediatric 4 completed TREBA NEUSCHWANDER null, [facility] 03/01/2023 09:10:18 Hep B, adolescent or pediatric 3 completed TREBA NEUSCHWANDER null, [facility] 03/01/2023 09:10:18 Hep A, ped/adol, 2 dose 7 completed TREBA NEUSCHWANDER null, [facility] 03/01/2023 09:10:18 Hib (PRP-T) 4 completed TREBA NEUSCHWANDER null, [facility] 03/01/2023 09:10:18 Hib (PRP-T) 5 completed TREBA NEUSCHWANDER null, [facility] 03/01/2023 09:10:18 Hib (PRP-T) 6 completed TREBA NEUSCHWANDER null, [facility] 03/01/2023 09:10:18 Hib (PRP-T) 4 completed TREBA NEUSCHWANDER null, [facility] 03/01/2023 09:10:18 meningococcal MCV4P 7 completed TREBA NEUSCHWANDER null, [facility] 03/01/2023 09:10:18 DTaP 4 completed TREBA NEUSCHWANDER null, [facility] 03/01/2023 09:10:18 DTaP 5 completed TREBA NEUSCHWANDER null, [facility] 03/01/2023 09:10:18 DTaP 6 completed TREBA NEUSCHWANDER null, [facility] 03/01/2023 09:10:19 DTaP 8 completed TREBA NEUSCHWANDER null, [facility] 03/01/2023 09:10:19 DTaP-Hep B-IPV 4 completed TREBA NEUSCHWANDER null, [facility] 03/01/2023 09:10:19 Past Encounters Encounter ID Performer Location Encounter Start Date Encounter Closed Date Diagnosis/Indication Diagnosis SNOMED-CT Code Diagnosis ICD10 Code Diagnosis Note [id number] CHANTELLE MARY [facility] ([facility]) [address] [place] [id number] 02/11/2023 17:20:25 02/11/2023 18:50:23 detection examination 06954317 Z32.00 Positive urine test. Patient encouraged to establish with OBGYN for new OB appointmen t. Desires to establish with Dr. Owens. [id number] Umm Owens MD [facility] ([facility]) [address] [place] [id number] 5 03/01/2023 09:00:57 03/01/2023 13:33:53 Multigravida 664638792 Z34.81 Gestation period, 7 weeks 42699173 Z3A.01 Traumatic injury during 560611127 T14.90XA [id number] Umm Owens MD [facility] ([facility]) [address] [place] [id number] 5 03/30/2023 09:47:47 03/30/2023 18:15:49 [id number] Umm Owens MD [facility] ([facility]) [address] [place] [id number] 5 03/30/2023 10:46:07 03/30/2023 14:45:00 Multigravida 051041653 Z34.81 Gestation period, 11 weeks 52195708 Z3A.11 Vaginal discharge 969819 006 N89.8 [id number] Umm Owens MD [facility] ([facility]) [address] [place] [id number] 5 05/03/2023 14:54:02 05/03/2023 15:47:44 Multigravida 488485006 Z34.82 Gestation period, 16 weeks 81632085 Z3A.16 Anemia of 2734 2003 O99.134 [id number] Umm Owens MD [facility] ([facility]) [address] [place] [id number] 5 05/31/2023 12:45:57 05/31/2023 18:12:44 Normal in multigravida 1344957086 58861 Z34.82 [id number] Umm Owens MD [facility] ([facility]) [address] [place] [id number] 5 05/31/2023 13:27:30 06/01/2023 00:18:08 Multigravida 139524380 Z34.82 Gestation period, 20 weeks 83969776 Z3A.20 [id number] Umm Owens MD [facility] ([facility]) [address] [place] [id number] 5 05/31/2023 13:59:50 05/31/2023 14:45:20 Multigravida 556991361 Z34.82 Gestation period, 20 weeks 63167789 Z3A.20 [id number] Umm Owens MD [facility] ([facility]) [address] [place] [id number] 5 06/28/2023 10:28:32 06/28/2023 11:08:47 Multigravida 626453225 Z34.82 Gestation period, 24 weeks 421892984 Z3A.24 [id number] Umm Owens MD [facility] ([facility]) [address] [place] [address] [phone] 07/19/2023 11:45:33 07/19/2023 14:20:01 Multigravida [id number] Z34.82 Gestation period, 27 weeks [id number] Z3A.27 Blood grou p 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 [id number] Z67.11 Order for RhoGam injection sent to [facility] infusion clinic 07/19/23 [id number] Umm Owens MD [facility] ([facility]) [address] [place] [address] [phone] 5 08/04/2023 12:36:18 08/09/2023 04:11:27 [id number] Umm Owens MD [facility] ([facility]) [address] [place] [address] [phone] 5 08/04/2023 10:15:08 08/05/2023 12:01:08 Multigravida [id number] Z34.82 [id number] Fran Estes MD [facility] ([facility]) [address] [place] [address] [phone] 5 08/09/2023 11:40:01 08/09/2023 17:27:37 Multigravida [id number] Z34.83 Anticipato ry guidance provided Gestationa l diabetes mellitus complicating [id number] O24.419 Diabetes education provided for the patient. Reinforced diabetes diet to take walks with each meal. Will start metformin. Patient was encouraged to provide testing and 2-hour postprandi al blood sugar readings over the next week to the clinic and expressed understand ing. Will plan on starting growth ultrasound and test in 2 weeks. [id number] Fran Estes MD [facility] ([facility]) [address] [place] [address] [phone] 5 08/17/2023 16:28:29 08/17/2023 17:06:58 Gestational diabetes mellitus [id number] O24.414 Based on the significan tly elevated [...] her back for routine visit next week. [id number] Fran Estes MD [facility] ([facility]) [address] [place] [address] [phone] 5 08/23/2023 11:09:18 08/23/2023 12:07:35 Gestational diabetes mellitus [id number] O24.414 Patient's blood sugar is doing better [...] fasting glucose is not under 95. Multigravida 190915392 Z 34.83 Anticipato ry guidance provided [id number] Umm Owens MD [facility] ([facility]) [address] [place] [address] [phone] 5 08/23/2023 12:37:46 08/23/2023 18:28:10 [id number] Fran Estes MD [facility] ([facility]) [address] [place] [address] [phone] 5 09/12/2023 10:56:24 09/12/2023 11:32:49 Gestational diabetes mellitus 02691190 O24.414 Patient blood sugars doing significan tly [...] 1 week. Normal pre gnancy in multigravida [id number] 50057 Z34.83 Gestation period, 35 weeks 72942801 Z3A.35 [id number] Fran Estes MD [facility] ([facility]) [address] [place] [address] [phone] 5 09/26/2023 10:43:54 09/26/2023 11:23:44 Multigravida 697159454 Z34.83 Anticipato ry guidance provided Gestationa l diabetes mellitus complicating [id number] 9106 O24.419 Patient has not been doing [...] likely wait to 39 weeks before induction. [id number] Fran Estes MD [facility] ([facility]) [address] [place] [address] [phone] 5 01/10/2024 17:08:42 01/10/2024 17:43:28 Uncontrolled type 1 diabetes mellitus [id number] E10.65 Based on habitus and kind of [...] getting a continuous glucose monitor for her. [id number] Fran Estes MD [facility] ([facility]) [address] [place] [address] [phone] 5 02/17/2024 09:19:56 02/17/2024 09:54:31 Uncontrolled type 1 diabetes mellitus [id number] E10.65 Will transition her over to glargine and lispro insulin. Will start with 4 units at bedtime of glargine and 2 units with meals of lispro. Go ahead and check an A1c today. Will also work on getting her a Dexcom to help her manage her sugars better. Moderate r ecurrent major depression 82021628 F33.1 Discussed options for treatment for her depression and anxiety and the patient was open to medication s. Will start with Lexapro and follow-up in 1 month. Discussed the risks and benefits of this medication . Anxiety 31523730 F41.9 Contracept ion care management 608114326 Z30.9 Jerad the risks and benefits of Nexplanon. Discussed other long-term solutions for control including IUD. The patient wants to consider her options and she will notify us of which control option she would like to proceed with. [id number] Fran Estes MD [facility] ([facility]) [address] [place] [address] [phone] 5 03/16/2024 11:56:35 03/16/2024 13:13:41 Anxiety 04640521 F41.9 Depression is doing better but anxiety is still high. Will increase the dose to 20 mg of Lexapro. Moderate r ecurrent major depression 97089705 F33.1 Uncontroll ed type 1 diabetes mellitus 324728529 E10.65 Patient's blood sugars on average have been high the last 2 weeks. Given the highest elevation after lunchtime, I would recommend increasing the dose of lunchtime insulin by 1 unit. [id number] Fran Estes MD [facility] ([facility]) [address] [place] [address] [phone] 5 03/26/2024 14:56:27 03/26/2024 16:11:55 Gynecologic examination 34227807 Z01.411 Cervix had mild abnormal appearance but could be related to transition al cells as her cervix was mildly open as she had just finished her menstruati on. Will await Pap results and do any further interventi on if needed. [id number] Fran Estes MD [facility] ([facility]) [address] [place] [address] [phone] 5 05/11/2024 11:24:32 05/11/2024 12:41:03 Chronic diarrhea of unknown origin 53187267 K52.9 We will evaluate this further with labs initially. May need to obtain stool studies. Uncontroll ed type 1 diabetes mellitus 416487715 E10.65 Patient reports that her blood sugars appear to be doing better. Will check an A1c today. The patient is having occasional lows that seems to be related to her menstrual cycle. Continue diabetic diet and current medication s. [id number] Fran Estes MD [facility] ([facility]) [address] [place] [address] [phone] 5 06/29/2024 11:13:42 06/29/2024 12:24:47 Uncontrolled type 1 diabetes mellitus 206265696 E10.65 Blood sugars are not well-contr olled. [...] [place] [id number] Trever Kebede [id number] 5 Tiannaeileen Kebede 10/11/2024 1 HEALTHY [place] [id number] Trever Kebede [id number] 5 Trever Kebede 07/30/2024 [place] [facility] ([facility] ) Trever Kebede [id number] Trever Kebede Notes Date Note Type Note [...] like to consider medications. Fran Estes MD [address] [place] [address], [phone], [facility] 02/17/2024 10:34:40 03/16/2024 text/html Pt is [...] blood sugars after lunchtime. Fran Estes MD [address] [place] [address], [phone], [facility] 03/18/2024 09:10:19 03/26/2024 text/html Annual GYNReport [...] no other significant concerns. Fran Estes MD [address] [place] [address], [phone], [facility] 03/26/2024 17:16:22 05/11/2024 text/html DiarrheaReported bypatient.Onset/Timing [...] it to the bathroom. Fran Estes MD [address] [place] [address], [phone], [facility] 05/12/2024 12:01:44 06/29/2024 text/html This is a 19-yea r-old female who presents today to discuss referral. The patient wants to proceed with an insulin pump and would like referral to endocrinology. Patient states that she has been having some difficulty controlling her blood sugars recently. Fran Estes MD [address] [place] [address], [phone], [facility] 07/03/2024 17:31:51 OBGyn Episode Ob Episode Information Episode Created Date Number of Fetuses Patient Bloodtype Patient rh Status Prepregnancy Weight lbs Domestic Partner Domestic Partner Phone Father Name Machine Sewer Status 03/01/20 23 1 CLOSED Fetus Data [...] Domestic Partner Domestic Partner Phone Father Name Machine Sewer Status 03/01/20 23 1 A Negative Richar CLOSED Fetus Data First Name Last Name Admitted to NICU Weight (g) Sex Living Outcome Pediatric Complications Fetus ID Race Codes Race Delivery Type [id number] Problems Problem Notes Problem Name Start Date End Date Resolution Snomed Code Not e Blood group 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 2 [id number] Rashaad Calculation Initial Rashaad Date Initial Exam [...] Weight in lbs Pre/Post Dialysis Refused Weight 118.369484612162 BP Diastolic BP Location Tested BP Systolic [...] Weight in lbs Pre/Post Dialysis Refused Weight 119.310998753380 BP Diastolic BP Location Tested BP Systolic [...] Weight in lbs Pre/Post Dialysis Refused Weight 119.230898549654 BP Diastolic BP Location Tested BP Systolic [...] Weight in lbs Pre/Post Dialysis Refused Weight 127.042462056007 BP Diastolic BP Location Tested BP Systolic [...] Weight in lbs Pre/Post Dialysis Refused Weight 124.959379838616 BP Diastolic BP Location Tested BP Systolic [...] Weight in lbs Pre/Post Dialysis Refused Weight 125.684858081331 BP Diastolic BP Location Tested BP Systolic [...] Present Fetus Movement Comments order sent to [facility] for RhoGam injection. Flowsheet Date [...] in lbs Pre/Post Dialysis Refused With clothes 125.82225047807 BP Diastolic BP Location Tested BP Systolic [...] in lbs Pre/Post Dialysis Refused With clothes 128.900410562586 BP Diastolic BP Location Tested BP Systolic [...] in lbs Pre/Post Dialysis Refused With clothes 132.675436107809 BP Diastolic BP Location Tested BP Systolic [...] in lbs Pre/Post Dialysis Refused With clothes 134.796228453894 BP Diastolic BP Location Tested BP Systolic [...] in lbs Pre/Post Dialysis Refused With clothes 119.868981345055 BP Diastolic BP Location Tested BP Systolic [...] Estim ated Date of Delivery false Thalassemia (Luxembourgish, Kiswahili, Mediterranean, Or Background): MCV < 80 false Neural Tube Defect (Meningomyelocele, Spina Bifi da, Or Anencephaly) false Congenital Heart Defect false Down Syndrome false Yg-Sachs (eg, Restorationism, Cajun, [place]ese-[place]) f alse Natacha Disease false Sickle Cell Disease Or Trait () false Hemophilia Or Other Blood Disorders false Muscular Dystrophy false Cystic Fibrosis false Raritan's Chorea false Intellectual Disability/Autism false If Yes, [...] Domestic Partner Domestic Partner Phone Father Name Machine Sewer Status 03/01/20 23 1 CLOSED Fetus Data [...] Domestic Partner Domestic Partner Phone Father Name Machine Sewer Status 01/10/20 24 1 CLOSED Fetus Data [...]
--- OUTSIDE RECORDS SUMMARY | 2024-12-04 18:27 | XMS_ITS | Data Portability ---
Author Organization COLETTE Pauly kinney [facility] Address [address] [place] [address] Assessment Encounter Date Assessment Date Assessment LastModified [...] Lab HbA1c (hemoglobin A1c), blood 2024 025 [email or web address] 173 [facility] ([facility], [address] [place], [address], 16:05:15 lipid panel, serum 2024 025 [email or web address] 173 [facility] ([place]), [address] [place], [address], 5 16:05:15 microalbumi n/creatinin e, mass ratio, urine 2024 025 BERNY [facility] ([facility], [address] [place], [address], 5 20:10:22 CMP, serum or plasma 2024 025 [email or web address] 173 [facility] ([place]), [address] [place], [address], 5 16:05:15 CBC w/ auto diff 2024 025 [email or web address] 173 [facility] ([place]), [address] [place], [address], 5 16:05:15 urinalysis, complete 2024 025 [email or web address] ([place]), [address] [place], [address], 5 16:05:15 TSH + free T4, serum 2024 025 [email or web address] 173 [facility] ([place]), [address] [place], [address], 5 16:05:15 unlisted lab - juanita/wkf295/ insulin Ab H.S. - [facility] 2024 025 ROYAL [facility] ([place]), [address] [place], [address], 5 04:15:41 Referral None recorded. Procedures None recorded. Surgeries None recorded. Imaging None recorded. Medication Orders glucose 4 gram chewable tablet 2024 025 [facility] #4506, [address] [place], [address], 5 13:13:56 Baqsimi 3 mg/actuatio n nasal spray 2024 025 [facility]acy #4506, [address] [place], [address], 5 13:13:56 Humalog KwikPen (U-100) Insulin 100 unit/mL subcutaneou s 2024 025 [email or web address] [facility], [address] [place], [address], 13:17:20 Lantus Solostar U-100 Insulin 100 unit/mL (3 mL) subcutaneou s pen 2024 025 [email or web address] [facility]/Pharmacy #4506, [address] [place], [address], 13:17:20 Patient Targets Encounter Date Encounter Id Patient Goals Patient Target Last Modified By Organization Details Last Modified Time 08/08/2024 [id number] residential goal of Exercise level Moderate Not available Not available Not available manager life goal of Hemoglobin A1C 6.5% or less Not available Not available Not available manager life goal of Glucose, 2 Hour Postprandial 140mg/dL or less Not available Not available Not available residential goal of Fasting Glucose 110mg/dL or less Not available Not available Not available Patient Instructions Encounter Date Encounter Id Patient Instructions Last Modified By Organization Details Last Modified Time 08/08/2024 [id number] During the patient's visit for diabetes, we [...] as applicable. Not available 08/08/2024 13:18:14 08/08/2024 [id number] During the patient's visit for diabetes, we discussed the goal of improvement and stabilization of the diabetes with treatment compliance and continued efforts at improvement of diet and lifestyle. We also discussed long-term goal of preventing complications of diabetes with regular followups and monitoring and other preventative measures such as diabetic foot examination and diabetic eye examination. [email or web address] Not available 08/07/2024 17:45:18 Reason for Referral None Reported. Results Created Date Observation Date Name Description Value Unit Range Abnormal Flag Note LastModifiedBy Organization Detail LastModifiedTime 08/09/19 25 08/09/2024 CBC WITH DIFFE RENTI AL/PL ATELE T WBC 5.5 x10e3 /uL 3.4-10 .8 normal Not Available [facility] ([facility]) [address] [place], [address], 08/09/2024 06:47:20 08/09/19 25 08/09/2024 CBC WITH DIFFE RENTI AL/PL ATELE T RBC 4.62 x10e6 /uL 3.77-5 .28 normal Not Available [facility] ([facility]) [address] [place], [address], 08/09/2024 06:47:20 08/09/19 25 08/09/2024 CBC WITH DIFFE RENTI AL/PL ATELE T hemoglobin 9.4 g/dL 11.1-1 5.9 below low normal Not Available [facility] ([facility]) [address] [place], [address], 08/09/2024 06:47:20 08/09/19 25 08/09/2024 CBC WITH DIFFE RENTI AL/PL ATELE T hematocrit 34.1 % 34.0-4 6.6 normal Not Available [facility] ([facility]) [address] [place], [address], 08/09/2024 06:47:20 08/09/19 25 08/09/2024 CBC WITH DIFFE RENTI AL/PL ATELE T MCV 74 fL 79-97 below low normal Not Available [facility] ([facility]) [address] [place], [address], 08/09/2024 06:47:20 08/09/19 25 08/09/2024 CBC WITH DIFFE RENTI AL/PL ATELE T MCH 20.3 pg 26.6-3 3.0 below low normal Not Available [facility] ([facility]) [address] [place], [address], 08/09/2024 06:47:20 08/09/19 25 08/09/2024 CBC WITH DIFFE RENTI AL/PL ATELE T MCHC 27.6 g/dL 31.5-3 5.7 below low normal Not Available [facility] ([facility]) [address] [place], [address], 08/09/2024 06:47:20 08/09/19 25 08/09/2024 CBC WITH DIFFE RENTI AL/PL ATELE T RDW 16.3 % 11.7-1 5.4 above high normal Not Available [facility] ([facility]) [address] [place], [address], 08/09/2024 06:47:20 08/09/19 25 08/09/2024 CBC WITH DIFFE RENTI AL/PL ATELE T platelets 379 x10e3 /uL 150-45 0 normal Not Available [facility] ([facility]) [address] [place], [address], 08/09/2024 06:47:20 08/09/19 25 08/09/2024 CBC WITH DIFFE RENTI AL/PL ATELE T neutrophils 64 % not estab. normal Not Available [facility] ([facility]) [address] [place], [address], 08/09/2024 06:47:20 08/09/19 25 08/09/2024 CBC WITH DIFFE RENTI AL/PL ATELE T lymphs 27 % not estab. normal Not Available [facility] ([facility]) [address] [place], [address], 08/09/2024 06:47:20 08/09/19 25 08/09/2024 CBC WITH DIFFE RENTI AL/PL ATELE T monocytes 6 % not estab. normal Not Available [facility] ([facility]) [address] [place], [address], 08/09/2024 06:47:20 08/09/19 25 08/09/2024 CBC WITH DIFFE RENTI AL/PL ATELE T eos 2 % not estab. normal Not Available [facility] ([facility]) [address] [place], [address], 08/09/2024 06:47:20 08/09/19 25 08/09/2024 CBC WITH DIFFE RENTI AL/PL ATELE T basos 1 % not estab. normal Not Available [facility] ([facility]) [address] [place], [address], 08/09/2024 06:47:20 08/09/19 25 08/09/2024 CBC WITH DIFFE RENTI AL/PL ATELE T immature cells RENEWABLE ENERGY TRADER Not Available [facility] ([facility]) [address] [place], [address], 08/09/2024 06:47:20 08/09/19 25 08/09/2024 CBC WITH DIFFE RENTI AL/PL ATELE T neutrophils (absolute) 3.5 x10e3 /uL 1.4-7. 0 normal Not Available [facility] ([facility]) [address] [place], [address], 08/09/2024 06:47:20 08/09/19 25 08/09/2024 CBC WITH DIFFE RENTI AL/PL ATELE T lymphs (absolute) 1.5 x10e3 /uL 0.7-3. 1 normal Not Available [facility] ([facility]) [address] [place], [address], 08/09/2024 06:47:20 08/09/19 25 08/09/2024 CBC WITH DIFFE RENTI AL/PL ATELE T monocytes(ab solute) 0.3 x10e3 /uL 0.1-0. 9 normal Not Available [facility] ([facility]) [address] [place], [address], 08/09/2024 06:47:20 08/09/19 25 08/09/2024 CBC WITH DIFFE RENTI AL/PL ATELE T eos (absolute) 0.1 x10e3 /uL 0.0-0. 4 normal Not Available [facility] ([facility]) [address] [facility], [place], [address], 08/09/2024 06:47:20 08/09/19 25 08/09/2024 CBC WITH DIFFE RENTI AL/PL ATELE T baso (absolute) 0.1 x10e3 /uL 0.0-0. 2 normal Not Available [facility] ([facility]) [address] [facility], [place], [address], 08/09/2024 06:47:20 08/09/19 25 08/09/2024 CBC WITH DIFFE RENTI AL/PL ATELE T immature granulocytes 0 % not estab. Not Available [facility] ([facility]) [address] [facility], [place], [address], 08/09/2024 06:47:20 08/09/19 25 08/09/2024 CBC WITH DIFFE RENTI AL/PL ATELE T immature grans (abs) 0.0 x10e3 /uL 0.0-0. 1 Not Available [facility] ([facility]) [address] [place], [address], 08/09/2024 06:47:20 08/09/19 25 08/09/2024 CBC WITH DIFFE RENTI AL/PL ATELE T NRBC RENEWABLE ENERGY TRADER Not Available [facility] ([facility]) [address] [place], [address], 08/09/2024 06:47:20 08/09/19 25 08/09/2024 CBC WITH DIFFE RENTI AL/PL ATELE T hematology comments: RENEWABLE ENERGY TRADER Not Available [facility] ([facility]) [address] [place], [address], 08/09/2024 06:47:20 08/09/19 25 08/09/2024 URINA LYSIS , COMPL ETE specific gravity 1.024 1.005- 1.030 normal Not Available [facility] ([facility]) [address] [place], [address], 08/09/2024 06:47:21 08/09/19 25 08/09/2024 URINA LYSIS , COMPL ETE pH 5.5 5.0-7. 5 normal Not Available [facility] ([facility]) [address] [place], [address], 08/09/2024 06:47:21 08/09/19 25 08/09/2024 URINA LYSIS , COMPL ETE urine-color YELLOW yellow Not Available [facility] ([facility]) [address] [place], [address], 08/09/2024 06:47:21 08/09/19 25 08/09/2024 URINA LYSIS , COMPL ETE appearance CLEAR clear Not Available [facility] ([facility]) [address] [place], [address], 08/09/2024 06:47:21 08/09/19 25 08/09/2024 URINA LYSIS , COMPL ETE WBC esterase NEGATI VE negati ve Not Available [facility] ([facility]) [address] [place], [address], 08/09/2024 06:47:21 08/09/19 25 08/09/2024 URINA LYSIS , COMPL ETE protein TRACE negati ve/tra ce Not Available [facility] ([facility]) [address] [place], [address], 08/09/2024 06:47:21 08/09/19 25 08/09/2024 URINA LYSIS , COMPL ETE glucose 3+ negati ve abnormal Not Available [facility] ([facility]) [address] [place], [address], 08/09/2024 06:47:21 08/09/19 25 08/09/2024 URINA LYSIS , COMPL ETE ketones TRACE negati ve abnormal Not Available [facility] ([facility]) [address] [facility], [place], [address], 08/09/2024 06:47:21 08/09/19 25 08/09/2024 URINA LYSIS , COMPL ETE occult blood NEGATI VE negati ve Not Available [facility] ([facility]) [address] [facility], [place], [address], 08/09/2024 06:47:21 08/09/19 25 08/09/2024 URINA LYSIS , COMPL ETE bilirubin NEGATI VE negati ve Not Available [facility] ([facility]) [address] [facility], [place], [address], 08/09/2024 06:47:21 08/09/19 25 08/09/2024 URINA LYSIS , COMPL ETE urobilinogen ,semi-qn 0.2 mg/dL 0.2-1. 0 normal Not Available [facility] ([facility]) [address] [facility], [place], [address], 08/09/2024 06:47:21 08/09/19 25 08/09/2024 URINA LYSIS , COMPL ETE nitrite, urine NEGATI VE negati ve Not Available [facility] ([facility]) [address] [place], [address], 08/09/2024 06:47:21 08/09/19 25 08/09/2024 URINA LYSIS , COMPL ETE microscopic examination COMMEN T Marissa ott ws if indic ated. Not Available [facility] ([facility]) [address] [place], [address], 08/09/2024 06:47:21 08/09/19 25 08/09/2024 URINA LYSIS , COMPL ETE microscopic examination SEE BELOW: Micro scopi c was indic ated and was perfo rmed. Not Available [facility] ([facility]) [address] [place], [address], 08/09/2024 06:47:21 08/09/19 25 08/09/2024 URINA LYSIS , COMPL ETE WBC NONE SEEN /hpf 0 - 5 Not Available [facility] ([facility]) [address] [facility], [place], [address], 08/09/2024 06:47:21 08/09/19 25 08/09/2024 URINA LYSIS , COMPL ETE RBC NONE SEEN /hpf 0 - 2 Not Available [facility] ([facility]) [address] [facility], [place], [address], 08/09/2024 06:47:21 08/09/19 25 08/09/2024 URINA LYSIS , COMPL ETE epithelial cells (non renal) 0-10 /hpf 0 - 10 Not Available [facility] ([facility]) [address] [facility], [place], [address], 08/09/2024 06:47:21 08/09/19 25 08/09/2024 URINA LYSIS , COMPL ETE epithelial cells (renal) RENEWABLE ENERGY TRADER Not Available [facility] ([facility]) [address] [facility], [place], [address], 08/09/2024 06:47:21 08/09/19 25 08/09/2024 URINA LYSIS , COMPL ETE casts NONE SEEN /lpf none seen Not Available [facility] ([facility]) [address] [place], [address], 08/09/2024 06:47:21 08/09/19 25 08/09/2024 URINA LYSIS , COMPL ETE cast type RENEWABLE ENERGY TRADER Not Available [facility] ([facility]) [address] [place], [address], 08/09/2024 06:47:21 08/09/19 25 08/09/2024 URINA LYSIS , COMPL ETE crystals RENEWABLE ENERGY TRADER Not Available [facility] ([facility]) [address] [facility], [place], [address], 08/09/2024 06:47:21 08/09/19 25 08/09/2024 URINA LYSIS , COMPL ETE crystal type RENEWABLE ENERGY TRADER Not Available [facility] ([facility]) [address] [facility], [place], [address], 08/09/2024 06:47:21 08/09/1908/09/2024 URINA LYSIS , COMPL ETE mucus threads RENEWABLE ENERGY TRADER Not Available [facility] ([facility]) [address] [facility], [place], [address], 08/09/2024 06:47:21 08/09/1908/09/2024 URINA LYSIS , COMPL ETE bacteria NONE SEEN none seen/f ew Not Available [facility] ([facility]) [address] [facility], [place], [address], 08/09/2024 06:47:21 08/09/1908/09/2024 URINA LYSIS , COMPL ETE yeast RENEWABLE ENERGY TRADER Not Available [facility] ([facility]) [address] [facility], [place], [address], 08/09/2024 06:47:21 08/09/1908/09/2024 URINA LYSIS , COMPL ETE trichomonas RENEWABLE ENERGY TRADER Not Available [facility] ([facility]) [address] [facility], [place], [address], 08/09/2024 06:47:21 08/09/19 25 08/09/2024 URINA LYSIS , COMPL ETE comment RENEWABLE ENERGY TRADER Not Available [facility] ([facility]) [address] [facility], [place], [address], 08/09/2024 06:47:21 08/09/19 25 08/09/2024 TSH+F REE T4 TSH 0.595 uIU/m L 0.450- 4.500 normal Not Available [facility] ([facility]) [address] [place], [address], 08/09/2024 07:42:31 08/09/19 25 08/09/2024 TSH+F REE T4 T4,free(dire ct) 1.32 NG/dL 0.82-1 .77 normal Not Available [facility] ([facility]) [address] [place], [address], 08/09/2024 07:42:31 08/09/19 25 08/09/2024 LIPID PANEL cholesterol, total 147 mg/dL 100-19 9 normal Not Available [facility] ([facility]) [address] [place], [address], 08/09/2024 07:42:32 08/09/19 25 08/09/2024 LIPID PANEL triglyceride s 40 mg/dL 0-149 normal Not Available [facility] ([facility]) [address] [place], [address], 08/09/2024 07:42:32 08/09/19 25 08/09/2024 LIPID PANEL HDL cholesterol 51 mg/dL >39 normal Not Available [facility] ([facility]) [address] [place], [address], 08/09/2024 07:42:32 08/09/19 25 08/09/2024 LIPID PANEL VLDL cholesterol kiran 9 mg/dL 5-40 Not Available [facility] ([facility]) [address] [place], [address], 08/09/2024 07:42:32 08/09/19 25 08/09/2024 LIPID PANEL LDL chol calc ([facility]) 87 mg/dL 0-99 Not Available [facility] ([facility]) [address] [place], [address], 08/09/2024 07:42:32 08/09/19 25 08/09/2024 LIPID PANEL LDL calc comment: RENEWABLE ENERGY TRADER Not Available [facility] ([facility]) [address] [place], [address], 08/09/2024 07:42:32 08/09/19 25 08/09/2024 HEMOG LOBIN A1C hemoglobin A1C 8.9 % 4.8-5. 6 above high normal Predi abete s: 5.7 - 6.4 Diabe leighann: >6.4 Glyce [place] contr ol for adult s with diabe leighann: <7.0 Not Available [facility] ([facility]) [address] [place], [address], 08/09/2024 08:21:04 08/09/19 25 08/09/2024 COMP. METAB OLIC PANEL (14) glucose 191 mg/dL 70-99 above high normal Not Available [facility] ([facility]) [address] [place], [address], 08/09/2024 09:13:10 08/09/19 25 08/09/2024 COMP. METAB OLIC PANEL (14) BUN 7 mg/dL 6-20 normal Not Available [facility] ([facility]) [address] [place], [address], 08/09/2024 09:13:10 08/09/19 25 08/09/2024 COMP. METAB OLIC PANEL (14) creatinine 0.52 mg/dL 0.57-1 .00 below low normal Not Available [facility] ([facility]) [address] [place], [address], 08/09/2024 09:13:10 08/09/19 25 08/09/2024 COMP. METAB OLIC PANEL (14) eGFR 135 mL/mi n/1.7 3 >59 normal Not Available [facility] ([facility]) [address] [place], [address], 08/09/2024 09:13:10 08/09/19 25 08/09/2024 COMP. METAB OLIC PANEL (14) BUN/creatini ne ratio 13 9-23 normal Not Available [facility] ([facility]) [address] [facility], [place], [address], 08/09/2024 09:13:10 08/09/19 25 08/09/2024 COMP. METAB OLIC PANEL (14) sodium 138 mmol/ L 134-14 4 normal Not Available [facility] ([facility]) [address] [facility], [place], [address], 08/09/2024 09:13:10 08/09/19 25 08/09/2024 COMP. METAB OLIC PANEL (14) potassium 4.4 mmol/ L 3.5-5. 2 normal Not Available [facility] ([facility]) [address] [facility], [place], [address], 08/09/2024 09:13:10 08/09/19 25 08/09/2024 COMP. METAB OLIC PANEL (14) chloride 103 mmol/ L 96-106 normal Not Available [facility] ([facility]) [address] [facility], [place], [address], 08/09/2024 09:13:10 08/09/19 25 08/09/2024 COMP. METAB OLIC PANEL (14) carbon dioxide, total 21 mmol/ L 20-29 normal Not Available [facility] ([facility]) [address] [facility], [place], [address], 08/09/2024 09:13:10 08/09/19 25 08/09/2024 COMP. METAB OLIC PANEL (14) calcium 9.2 mg/dL 8.7-10 .2 normal Not Available [facility] ([facility]) [address] [facility], [place], [address], 08/09/2024 09:13:10 08/09/19 25 08/09/2024 COMP. METAB OLIC PANEL (14) protein, total 7.2 g/dL 6.0-8. 5 normal Not Available [facility] ([facility]) [address] [facility] [place], [address], 08/09/2024 09:13:10 08/09/19 25 08/09/2024 COMP. METAB OLIC PANEL (14) albumin 4.9 g/dL 4.0-5. 0 normal Not Available [facility] ([facility]) [address] [facility] [place], [address], 08/09/2024 09:13:10 08/09/19 25 08/09/2024 COMP. METAB OLIC PANEL (14) globulin, total 2.3 g/dL 1.5-4. 5 Not Available [facility] ([facility]) [address] [facility] [place], [address], 08/09/2024 09:13:10 08/09/19 25 08/09/2024 COMP. METAB OLIC PANEL (14) bilirubin, total 0.3 mg/dL 0.0-1. 2 normal Not Available [facility] ([facility]) [address] [facility] [place], [address], 08/09/2024 09:13:10 08/09/19 25 08/09/2024 COMP. METAB OLIC PANEL (14) alkaline phosphatase 66 IU/L 44-121 normal Not Available [facility] ([facility]) [address] [facility] [place], [address], 08/09/2024 09:13:10 08/09/19 25 08/09/2024 COMP. METAB OLIC PANEL (14) AST (SGOT) 17 IU/L 0-40 normal Not Available [facility] ([facility]) [address] [facility] [place], [address], 08/09/2024 09:13:10 08/09/19 25 08/09/2024 COMP. METAB OLIC PANEL (14) ALT (SGPT) 15 IU/L 0-32 normal Not Available [facility] ([facility]) [address] [place], [address], 08/09/2024 09:13:10 08/09/19 25 08/09/2024 ALBUM IN/CR EAT RATIO , RANDO M UR creatinine, urine 112.8 mg/dL not estab. normal Not Available [facility] ([facility]) [address] [place], [address], 08/09/2024 20:10:22 08/09/19 25 08/09/2024 ALBUM IN/CR EAT RATIO , RANDO M UR albumin, urine 38.2 ug/mL not estab. Not Available [facility] ([facility]) [address] [place], [address], 08/09/2024 20:10:22 08/09/19 25 08/09/2024 ALBUM IN/CR EAT RATIO , RANDO M UR alb/creat ratio 34 mg/g_ creat 0-29 above high normal Deena l: 0 - 29 Moder ately incre ased: 30 - 300 Sever alexander incre ased: >300 Not Available [facility] ([facility]) [address] [place], [address], 08/09/2024 20:10:22 08/09/19 25 08/17/2024 JUANITA/I CA512 /INSU JOSEFINA AB H.S. anti juanita 65 antibodies >120 U/mL above high normal Refer ence Range : <5.0 Negat axel > or = 5.0 Posit axel Not Available [facility] [address] [facility], [place], [address], 08/22/2024 04:15:41 08/09/19 25 08/19/2024 JUANITA/I CA512 [...] axel Not Available [facility] [address] [place], [address], 08/22/2024 04:15:41 08/09/1908/22/2024 JUANITA/I CA512 /INSU JOSEFINA AB H.S. ia-2 autoantibodi es 93 U/mL above high normal Refer ence Range : <7.5 Negat axel > or = 7.5 Posit axel Not Available [facility] [address] [place], [address], 08/22/2024 04:15:41 Result Notes None recorded. Problems Name Problem SNOMED Code Status Onset Date Resolution Date Notes Provider Name and Address Organization Details Recorded Time Diabetes mellitus 48501217 Active 025 Mi Page null, [place] [facility] 10:45:44 Anemia 579842463 Active 025 Mi Page null, [place] [facility] 10:45:51 Anxiety 33932173 Active 025 Mi Page null, [place] [facility] 10:45:57 Type 1 diabetes mellitus 36577596 Active 025 Bay Page MD [address] [place] [address], [id number] , [facility] - [facility] 5 10:57:10 Problem Notes None recorded. Medical [...] Last Updated DateTime 170.18 cm 19.5 kg/m2 53094.8 9 g 82 /min 100 % 100 % 18 /min 98.6 [degF] 123/81 mm[Hg] Mi Page [facility] 10:47:37 Social History Question Answer Notes LastModified by Organizat ion Details LastModified Time Tobacco Smoking Status Never Smoker Not Available [employer] 08/08/2024 10:25:23 Do You Have An Advance Directive? No [email or web address] Information n ot available 08/08/2024 What Is Your Level Of Caffeine Consumption? Occasional API-27 Information not available 08/08/2024 Risk Stratification Score (AAFP) 1 [email or web address] Information not available 08/08/2024 In The Last [...] Did You Ever Eat Less Than You [place] You Should Because There Wasn t Enough [...] Of Your Most Recent Tobacco Screening? 08/08/2024 [email or web address] Information not available 08/08/2024 Do You Have [...] Time Father No current problems or disability [email or web address] Not available 0 08/08/2024 10:46:18 Mother No current problems or disability [email or web address] Not available 0 08/08/2024 10:46:18 Medical History Condition Response diabetes mellitus Y Gynecological HistoryNo gynecological history recorded. Obstetrics History GPAL:G 0 P 0 0 0 0 Past Encounters Encounter ID Performer Location Encounter Start Date Encounter Closed Date Diagnosis/Indication Diagnosis SNOMED-CT Code Diagnosis ICD10 Code Diagnosis Note [id number] Bay Page MD [facility] [address] [place] [address] 08/08/2024 10:22:58 08/08/2024 12:28:30 Type 1 diabetes mellitus 17593810 E10.9 to pharm [id number] Bay Page MD [facility] [address] [place] [address] 08/08/2024 12:18:39 08/08/2024 13:27:48 Diabetes mellitus 13438798 E13.9 Diagnosis of type 1 or 2 diabetes has not been confirmed. Analyzed Dexcom G7 CGM reports. Patient is time in range only 18%. No hypoglycem ia episodes noted. Discussed glucose variabilit y and the possible complicati ons of uncontroll ed diabetes, including but not limited to, CVA/OR/bli ndness/amp utations, etc. Majority of visit spent [...] Date Sequence Insurance Name Policy Number Policy Etjada Covered Member ID Tejada Member ID Guarantor [...] Medication Adherence:greater than 90% Bay Page MD [address] [place] [address], [place], [address], [facility] - [place] [facility] [place] 08/08/2024 11:58:18 08/08/2024 text/html [facility] management of DM and concomitant disease states. Patient diagnosed with possible type 1 diabetes with the of her third child. No antibody testing has been done previously. Patient was seen immediately after PCP appointment where juanita 65, IAA, and C-peptide have been ordered. Patient is a resident of [place] and is applying for [place]. She currently has no insurance. She reports adherence to medications as noted below. She denies adverse effects to medications. When patient obtains [place] Medicaid she will find a PCP in [place] until then she will work with PCP [...] Dexcom Clarity David marinelli NormanDate of : [id number] at: Aug 08, 2024 12:06 PM CDTReporting period: TueJul 26, 2024 - TueAug 08, 2024 Glucose DetailsAverage glucose: 250 mg/dLGMI: 9.3%Standard deviation: 75 mg/dLCoefficient of Variation: 29.9% Time in RangeVery High: 47%High: 35%In Range: 18%Low: 0%Very Low: 0%Target Nepzo22-343 mg/dL Sensor usageDays with data: 01/27Time active: [...] have dental insurance Radha Rodriguez, PHARM-D [address] [place] [address], [place], [address], [place] [facility] [place] 08/08/2024 13:18:43 OBGyn Episode No OBEpisode recorded.
[2024-12-04 18:33] VITALS: BP 123/84; PULSE 82; RESP 18; TEMP 36.8; O2SAT 100
--- NOTE | 2024-12-04 19:15 | ED_ITS ---
HPI - General Adult 2 General: Chief complaint: General Medical Stated complaint: bloodsugar over 600 Time Seen by Provider: 12/04/24 19:07 History of Present Illness: Patient comes in with high blood sugar. States that she is type I diabetic. States she has not been taking medications for the past 2 weeks because she is burnt out . States she was not feeling well today with no specific symptoms but checked her blood sugar and noticed it was high. Denies any other symptoms including no fever, cough, congestion, sore throat, chest pain, abdominal pain, nausea, vomiting, diarrhea, or dysuria. Will check labs, start IV insulin, give IV fluids, and reassess. Associated symptoms: Deny chest pain, dyspnea, nausea, rash, palpitations or vomiting Related Data Previous Rx's ?Medication ?Instructions ?Recorded ferrous sulfate 325 mg (65 mg 325 mg PO BID #60 tabs 1 07/12/20 iron) tablet,delayed release Allergies Allergy/AdvReac Type Severity Reaction Status Date / Time No Known Allergies Allergy Verified 11/27/24 20:08 Review of Systems 2 Const: Denies: fever(s) or body aches ENMT: Denies: throat pain or odynophagia Card: Denies: chest pain or palpitations Resp: Denies: dyspnea or productive cough GI: Denies: abdominal pain, nausea or vomiting : Denies: flank pain or dysuria Skin/Breast: Denies: rash or pruritus PFSH ED 2 PFSH: Medical History (Updated 12/04/24 @ 21:15 by Zaheer Aldrich MD) Anemia affecting Gestational diabetes mellitus (GDM) affecting Social History Smoking and tobacco/nicotine status: never used tobacco/nicotine Alcohol intake: never Substance/Drug Use: never Physical Exam 2 Const: COMMON NORMALS: no acute distress, patient oriented x3, healthy appearing and alert HENMT: COMMON NORMALS: normocephalic and atraumatic HEAD & SCALP: n ormocephalic and atraumatic Eye: COMMON NORMALS: EOMs intact bilaterally Neck/C-Spine: COMMON NORMALS: full ROM and supple Resp: COMMON NORMALS: normal respiratory effort, No retractions and No use of accessory muscles Cardio: COMMON NORMALS: regular rate and regular rhythm RATE: regular rate RHYTHM: regular rhythm GI: COMMON NORMALS: Normal to inspection, nondistended, normoactive bowel sounds present, Soft to palpation and non-tender PALPATION: Yes Soft to palpation Extremity: COMMON NORMALS: normal to inspection and full ROM Neuro: COMMON NORMALS: patient oriented x3 SENSORIUM/ORIENTATION: Yes alert Psych: COMMON NORMALS: mental status grossly normal and cooperative Skin: COMMON NORMALS: no rashes or lesions noted and no wounds GENERAL SKIN EXAM: no rashes or lesions noted Course 2 Vital Signs: Vital signs: Vital Signs Temperature 98.2 F 12/04/24 18:33 Pulse Rate 82 12/04/24 18:33 Respiratory Rate 18 12/04/24 18:33 Blood Pressure 123/84 12/04/24 18:33 Pulse Oximetry 100 12/04/24 18:33 Oxygen Delivery Me thod Room Air 12/04/24 18:33 MDM - General Adult Medical Decision Making On reassessment I talked to the patient about her test results. Her initial blood sugar was 647. After IV insulin and some IV fluids his come down to 239. Her anion gap was normal. Her blood gas pH is normal. We talked about the importance of getting back on her insulin. We discussed symptoms that should prompt immediate return to the emergency department. Will discharge at this time with precautions to return for worsening or changing symptoms. Lab Data 12/04/24 19:13 12/04/24 19:13 Laboratory Results WBC 5.56 10^3/uL (3.29-11.43) 12/04/24 19:13 RBC 4.85 10^6/uL (3.85-5.65) 12/04/24 19:13 Hgb 10.20 g/dL (11.27-16.99) L 12/04/24 19:13 Hct 35.3 % (36-47) L 12/04/24 19:13 MCV 72.8 fl (85-98) L 12/04/24 19:13 MCH 21.0 pg (27-33) L 12/04/24 19:13 MCHC 28.9 g/dL (30-55) L 12/04/24 19:13 RDW 16.2 % (12.1-15.1) H 12/04/24 19:13 Plt Count 317 10^3/cmm (157-399) 12/04/24 19:13 MPV 10.7 fL (7.4-10.4) H 12/04/24 19:13 Neut % (Auto) 58.8 % 12/04/24 19:13 Lymph % (Auto) 33.1 % 12/04/24 19:13 Divide % (Auto) 4.3 % 12/04/24 19:13 Eos % (Auto) 2.5 % 12/04/24 19:13 Baso % (Auto) 0.9 % 12/04/24 19:13 Neut # (Auto) 3.27 10^3/uL (1.8-7.7) 12/04/24 19:13 Lymph # (Auto) 1.8 10^3/uL (0.8-4.8) 12/04/24 19:13 Divide # (Auto) 0.2 10^3/uL (0.2-0.9) 12/04/24 19:13 Eos # (Auto) 0.1 10^3/uL (0.0-0.8) 12/04/24 19:13 Baso # (Auto) 0.1 10^3/uL (0.0-0.1) 12/04/24 19:13 Nucleated RBC % (auto) 0 % 12/04/24 19:13 Nucleated RBCs # 0.0 /100WBC 12/04/24 19:13 Specimen Type Venous 12/04/24 20:05 Juan Test N/a 12/04/24 20:05 VBG pH 7.33 (7.32-7.42) 12/04/24 20:05 VBG pCO2 44.3 mmHg (41-51) 12/04/24 20:05 VBG pO2 25.8 mmHg (25-40) 12/04/24 20:05 VBG HCO3 23.2 mmol/L (24-28) L 12/04/24 20:05 VBG Base Excess -2.7 mmol/L (-3.0-3.0) 12/04/24 20:05 VBG Hematocrit 28.9 % (37-47) L 12/04/24 20:05 Sales Strategy Manager ID [email or web address] 12/04/24 20:05 Sodium 131 mmol/L (136-145) L 12/04/24 19:13 Potassium 3.9 mmol/L (3.5-5.1) 12/04/24 19:13 Chloride 93 mmol/L (98-107) L 12/04/24 19:13 Carbon Dioxide 23 mmol/L (22-29) 12/04/24 19:13 Anion Gap 18.9 (5-19) 12/04/24 19:13 BUN 7 mg/dL (6-20) 12/04/24 19:13 Creatinine 0.7 mg/dL (0.5-0.9) 12/04/24 19:13 GFR Calculation 105.6 mL/min (90-130) 12/04/24 19:13 Glucose 647 mg/dL (65-115) H* 12/04/24 19:13 POC Glucose 239 mg/dL (70-110) H 12/04/24 21:09 Calculated Osmolality 300 mOsm/kg (285-295) H 12/04/24 19:13 Calcium 9.5 mg/dL (8.5-10.5) 12/04/24 19:13 Total Bilirubin 0.3 mg/dL (0.15-1.2) 12/04/24 19:13 AST 18 U/L (0-32) 12/04/24 19:13 ALT 9 U/L (0-33) 12/04/24 19:13 Alkaline Phosphatase 74 U/L (35-105) 12/04/24 19:13 Total Protein 7.6 g/dL (6.6-8.7) 12/04/24 19:13 Albumin 4.6 g/dL (3.5-5.2) 12/04/24 19:13 Globulin 3.0 g/dL (1.3-4.6) 12/04/24 19:13 Serum Ketones Negative (Negative) 12/04/24 19:13 No radiology studies performed this visit Discharge Plan Discharge Patient Disposition: Home Clinical Impression: Acute hyperglycemia Condition: Stable Prescriptions: No Action ferrous sulfate 325 mg (65 mg iron) Tablet,Delayed Release (Dr/Ec) 325 mg PO BID Qty: 60 0RF Discharge Orders: Discharge ED (Routine); Ordered 12/04/24 Ordered By: Zaheer Aldrich Referrals: Fran Estes MD [Primary Care Provider, Family Practice] Patient Instructions: Type 1 Diabetes, Patient Portal & [place] Instructions Print Language: Palauan Coding Level of Care Code ED Technical Laboratory Asst for Chg Fwd
[2024-12-04] MEDS: insulin regular-human 100 units/1 mL 7 UNIT IVP (19:23)
[2024-12-04 19:30] LABS: Hematocrit 35.3 % (36-47); Hemoglobin 10.20 g/dL (11.27-16.99); Mean Corpuscular HGB Conc 28.9 g/dL (30-55); Mean Corpuscular Hemoglobin 21.0 pg (27-33); Mean Corpuscular Volume 72.8 fl (85-98); Nucleated Red Blood Cells % 0 %; Platelet Count 317 10^3/cmm (157-399); Red Blood Count 4.85 10^6/uL (3.85-5.65); White Blood Count 5.56 10^3/uL (3.29-11.43)
[2024-12-04 19:36] LABS: Ketone (Acetest) Serum Negative (Negative)
[2024-12-04 19:43] LABS: Alanine Aminotransferase 9 U/L (0-33); Albumin Level 4.6 g/dL (3.5-5.2); Alkaline Phosphatase 74 U/L (35-105); Anion Gap 18.9 (5-19); Aspartate Amino Transferase 18 U/L (0-32); Blood Urea Nitrogen 7 mg/dL (6-20); Calcium 9.5 mg/dL (8.5-10.5); Carbon Dioxide 23 mmol/L (22-29); Chloride 93 mmol/L (98-107); Creatinine Clr Calc Pharmacy 95.5847; Globulin 3.0 g/dL (1.3-4.6); Osmolality Calculated 300 mOsm/kg (285-295); Potassium 3.9 mmol/L (3.5-5.1); Sodium 131 mmol/L (136-145); Total Protein 7.6 g/dL (6.6-8.7)
[2024-12-04 19:47] LABS: Glucose 647 mg/dL (65-115)
[2024-12-04 20:15] LABS: Base Excess VBG -2.7 mmol/L (-3.0-3.0); Blood Gas Sample Type Venous; HCO3 VBG 23.2 mmol/L (24-28); PCO2 VBG 44.3 mmHg (41-51); PO2 VBG 25.8 mmHg (25-40); Venous Blood Gas Hematocrit 28.9 % (37-47); pH VBG 7.33 (7.32-7.42)
[2024-12-04 21:22] LABS: HCG Qualitative Urine. Negative (Negative)
[2024-12-04 21:40] VITALS: BP 121/71; PULSE 84; RESP 17; O2SAT 98
== END 2024-12-04 21:49 | disposition home or self-care (01) ==
PROVIDERS: Emergency Medicine; Emergency Provider Emergency Medicine; PCP Family Medicine
DX: E10.65 Type 1 diabetes mellitus with hyperglycemia (principal)
CPT/HCPCS: 36415; 36416; 80053; 81025; 82009; 82803; 82962; 85025; 96361; 96374; 99284; J1815; J7030